=== PATIENT | female | born 1975 | race Caucasian/White ===

== ENCOUNTER → 2017-12-31 16:49 | Outpatient (CLI) | payer BC, SELFPAY | PROVIDERS: Visit Provider Obstetrics & Gynecology | DX: R30.0 Dysuria (principal); R39.15 Urgency of urination | CPT/HCPCS: 87077; 87086; 87088; 87186 ==

== ENCOUNTER 2018-02-20 15:04 | Inpatient (IN) | payer BC, SELFPAY ==
[2018-02-20] VITALS (14 sets, daily range): BP systolic 128–177; BP diastolic 75–132; PULSE 76–103; RESP 16–20; TEMP 36.8–37.2; O2SAT 95–100; BMI 29.7; BMI 29.9
--- NOTE | 2018-02-20 15:22 | EKG12_ITS ---
Test Reason : Blood Pressure : / mmHG Vent. Rate : 081 BPM Atrial Rate : 081 BPM P-R Int : 148 ms QRS Dur : 084 ms QT Int : 360 ms P-R-T Axes : 059 056 038 degrees QTc Int : 418 ms Normal sinus rhythm Normal ECG Confirmed by SANTI PENN ([id number]), offline editor DINO KOCH ([id number]) on 02/24/2018 1:39:25 PM Referred By: KEYLA Confirmed By:SANTI PENN
--- NOTE | 2018-02-20 15:22 | CT_ITS ---
STUDY: CT BRAIN WITHOUT CONTRAST REASON FOR EXAM: Female, 42 years old. Weakness, facial droop, left arm numbness RADIATION DOSAGE (If Supplied By Facility): CTDIvol = ( 44.99 ) mGy, DLP = ( 745.49 ) mGycm TECHNIQUE: Transaxial CT imaging of the brain was performed without administration of intravenous contrast material. Individualized dose optimization techniques were used for this CT. COMPARISON: None. FINDINGS: Normal soft tissue structures. Normal calvarium. Normal size ventricles and extra-axial spaces for the patient's age. Normal white matter tracts of the cerebral hemispheres. Normal basal ganglia and thalami. Normal brainstem. Normal cerebellum. There is no intracranial hemorrhage. There are no findings of an acute ischemic infarction. Normal visualized paranasal sinuses. CT/Brain/Head without Contrast IMPRESSION: Normal unenhanced CT scan of the brain. If acute CVA is clinically suspected, MRI may be helpful for further evaluation at this time. Electronically Signed: Ugo Kowalski MD at 16:17 EDT , Service support ,
--- NOTE | 2018-02-20 15:26 | ED.DCSUM_ITS ---
- ER Visit Summary Date of Service: 02/20/18 Chief Complaint: Left face and arm numbness History of Present Illness: The patient is a 42 F presenting with left-sided face and arm numbness. She also has left arm weakness. She was seen by her primary care physician today who also noted a facial droop. She states her symptoms started yesterday. They have been intermittent. She states yesterday the left arm numbness and weakness lasted approximately an hour. She has had intermittent episodes today. She also noted difficulty with her speech last night. She has no known medical problems. No other complaints. Physical Examination: Vitals are stable. Patient is afebrile. Alert no acute distress. HEENT exam is unremarkable. Neck is supple. Lungs are clear and equal bilaterally. Heart is regular rate and rhythm. Abdomen is soft nontender nondistended. Extremities are unremarkable. Skin is warm and dry. No focal neurologic deficit. NIH 0 Remainder of exam is unremarkable. Emergency Department Course and Treatment: EKG is sinus rate of 81 with no acute ischemic changes. Chest x-ray shows no acute process. CBC shows white count 12.3, chemistries show creatinine 1.04. INR is 1.0. Troponin is negative. CT head shows no acute process. Repeat NIH continues to be 0. Discussed with the hospitalist for admission. Disposition: Admission Impression: TIA This note was generated with [employer] dictation software. It may contain incorrect words, spelling, and punctuation that were not noted in review of the chart prior to signing ED Disposition - Plan for ED Patient: Chief Complaint: Neuro S/Sx Referrals: Rachel Jacinto MD [Primary Care Provider] -
--- NOTE | 2018-02-20 15:50 | RAD_ITS ---
STUDY: X-RAY CHEST REASON FOR EXAM: Female, 42 years old. Numbness, decreased sensation in left arm, facial drooping. TECHNIQUE: Single PA view of the chest. COMPARISON: None. FINDINGS: shirt folder leads are present. The lungs are clear and expanded. There is no demonstrated pleural abnormality. Normal size heart. Normal mediastinum and margarita. Normal visualized pulmonary arteries. Normal visualized aortic arch and descending thoracic aorta. Normal visualized thoracic spine. Normal visualized ribs, clavicles, and shoulders. There is no demonstrated abnormality of the visualized soft tissue structures of the upper abdomen. RAD/Chest 1 View IMPRESSION: Normal x-ray examination of the chest. Electronically Signed: Ugo Kowalski MD at 16:18 EDT , Service support ,
[2018-02-20 15:52] LABS: Absolute Neutrophil Count 8.6 X10^3/uL (2.0-7.7); Basophil# 0.02 X10^3/uL; Basophil% 0.2 % (0-1); Eosinophil# 0.15 X10^3/uL; Eosinophils% 1.2 % (0-5); Hematocrit 42.1 % (37-47); Lymphocyte % 23.6 % (19-41); Mean Corp Hgb Conc 33.3 g/gl (32-36); Mean Corpuscular Hgb 28.7 pg (27.0-32.0); Mean Corpuscular Volume 86.4 fL (81-99); Mean Platelet Vol. 10.3 fl (6.2-12.0); Monocyte# 0.61 X10^3/uL; Neutrophil # 8.61 X10^3/uL (2.7-7.7); Neutrophil % 69.8 % (47-70); Platelet Count 283 K/mm3 (150-450); RBC Distribution Width CV 13.3 % (11.6-14.6); RBC Distribution Width SD 41.4 fl (35.1-43.9); Red Blood Count 4.87 M/mm3 (4.2-5.4); White Blood Count 12.3 K/mm3 (4.4-11.0)
[2018-02-20 15:55] LABS: POSITIVE COUNT NO; POSITIVE DIFFERENTIAL NO; POSITIVE MORPHOLOGY NO
[2018-02-20 16:06] LABS: Prothrombin Time (Protime)PT. 12.7 SECONDS (11.7-14.9)
[2018-02-20 16:07] LABS: Anion Gap 6 (5-15); BUN 13 mg/dL (7-18); BUN/Creat Ratio 12.5 RATIO (10-20); Chloride 106 mmol/L (98-107); Creatinine, Serum 1.04 mg/dL (0.55-1.02); EST Glomerular Filtration Rate 61 mL/min (>60); Est Glom Filt Rate - Afr Amer 74 mL/min (>60); Estimated Creatinine Clearance 59.61 ml/min; Glucose 90 mg/dL (74-106); Partial Thromboplast Time 25.9 Seconds (24.1-36.2); Potassium 3.8 mmol/L (3.5-5.1); Sodium Level 142 mmol/L (136-145)
--- NOTE | 2018-02-20 18:40 | NURSING ---
CALLED ER CHARGE @ 1840 TO SAY OKAY FOR PT TO COME UP.
--- NOTE | 2018-02-20 18:55 | MRI_ITS ---
STUDY: MRI CERVICAL SPINE WITHOUT CONTRAST REASON FOR EXAM: Female, 42 years old. Left arm numbness and tingling. TECHNIQUE: Standardized fat and water weighted pulse sequences were obtained in the sagittal and axial planes. COMPARISON: None FINDINGS: Normal foramen magnum and brainstem-cervical cord junction. Normal craniovertebral junction. Normal anterior atlantoaxial articulation. Normal odontoid process. Normal cervical lordosis. Normal vertebral bodies and posterior osseous elements. C2-3: Normal endplates. Normal disc height, signal and morphology. Normal central canal and intervertebral neural foramina. C3-4: Normal endplates. Normal disc height, signal and morphology. Normal central canal and intervertebral neural foramina. C4-5: Normal endplates. Normal disc height, signal and morphology. Normal central canal and intervertebral neural foramina. C5-6: There is demonstrated right paracentral and foraminal disc bulge resulting in severe right foraminal narrowing. C6-7: Normal endplates. Normal disc height, signal and morphology. Normal central canal and intervertebral neural foramina. C7-T1: Normal endplates. Normal disc height, signal and morphology. Normal central canal and intervertebral neural foramina. Normal cervical cord. Normal visualized soft tissue structures. MRI/Spine Cervical (Routine) IMPRESSION: 1. Right C5-6 paracentral and foraminal disc bulge resulting in severe right foraminal narrowing, clinically correlate for right C5-6 radiculopathy. No evidence of cord signal abnormality. Electronically Signed: Rashaun Walter DO at 15:24 EDT , Service support ,
--- NOTE | 2018-02-20 18:55 | MRI_ITS ---
STUDY: MRA NECK WITH AND WITHOUT CONTRAST REASON FOR EXAM: Female, 42 years old. Left facial droop. TECHNIQUE: 3-D [id number] (TOF) imaging was performed in an 1.5 T MRI scanner. 7 ml of Gadavist was administered for the contrast enhanced images. COMPARISON: None. FINDINGS: RIGHT CAROTID ARTERIES: Normal right common carotid artery (CCA). Normal right common carotid bulb. Normal origin of the right internal carotid (ICA) artery without a hemodynamically significant stenosis. Normal visualized cervical portion of the right internal carotid artery. Normal origin of the right external carotid artery (ECA). LEFT CAROTID ARTERIES: Normal left common carotid artery (CCA). Normal left common carotid bulb. Normal origin of the left internal carotid (ICA) artery without a hemodynamically significant stenosis. Normal visualized cervical portion of the left internal carotid artery. Normal origin of the left external carotid artery (ECA). VERTEBRAL ARTERIES: Normal antegrade flow within the bilateral vertebral artery without a hemodynamically significant stenosis. MRI/MRA Neck WITH and W/O Contrast IMPRESSION: No evidence of significant steno-occlusive disease or aneurysm. Electronically Signed: Rashaun Walter DO at 15:35 EDT , Service support ,
--- NOTE | 2018-02-20 18:55 | MRI_ITS ---
STUDY: MRI BRAIN WITHOUT CONTRAST REASON FOR EXAM: Female, 42 years old. Left facial droop. TECHNIQUE: Standardized multiplanar fat and water weighted pulse sequences were obtained. COMPARISON: None. FINDINGS: Normal size of the ventricles and extra-axial spaces for the patient's age. Normal white matter tracts of the supratentorial brain. There is a focal infarct within the right subcortical white matter within the frontal parietal region/centrum semiovale measuring 1 cm in diameter. Normal bilateral basal ganglia. Normal thalami. There is no extra-axial fluid accumulation. Normal flow voids within the major intracranial circulation suggesting patency by spin echo criteria. Normal sella turcica, pituitary gland, infundibular stalk, optic chiasm and hypothalamus. Normal tectal plate and pineal gland. Normal midbrain, koko and medulla. Normal cerebellum. Normal basal cisterns. Normal bilateral temporal bones. Normal bilateral internal auditory canals. No demonstrated orbital abnormality, within the constraints of a routine brain study. Normal visualized paranasal sinuses. Normal calvarium and skull base. Normal visualized soft tissue structures. Normal visualized upper cervical spine. MRI/Brain without Contrast IMPRESSION: Right centrum semiovale/subcortical 1 cm focus of ischemia within the frontal parietal region without evidence of large territorial ischemia. No evidence of acute intracranial bleed. N.B. : The above information has been verbally conveyed by Rashaun Walter DO to Senia Griffith Charge Nurse, Other, on 02/21/2018 15:35:56 (ET). Electronically Signed: Rashaun Walter DO at 15:36 EDT , Service support ,
--- NOTE | 2018-02-20 18:55 | MRI_ITS ---
STUDY: MRA OF THE HEAD WITHOUT CONTRAST REASON FOR EXAM: Female, 42 years old. Left facial droop. TECHNIQUE: 3-D [id number] (TOF) imaging was performed with MIPs. The study was performed unenhanced. COMPARISON: None. FINDINGS: Normal bilateral petrous carotid arteries. Normal right cavernous carotid artery with a normal supraclinoid bifurcation. Normal left cavernous carotid artery with a normal supraclinoid bifurcation. Normal right A1 segments of the anterior cerebral artery. Normal left A1 segments of the anterior cerebral artery. Normal intact anterior communicating artery (ACOM). Normal bilateral A2 segments of the anterior cerebral arteries. Normal right M1 and M2 segments of the middle cerebral arteries, with a normal M1 bifurcation. Normal left M1 and M2 segments of the middle cerebral arteries, with a normal M1 bifurcation. Normal right posterior communicating artery (PCOM). Normal left posterior communicating artery (PCOM). Normal bilateral vertebral arteries. Normal basilar artery with a normal basilar bifurcation. The visualized bilateral superior cerebellar (SCA) arteries are normal. Normal bilateral P1, P2 and visualized P3 segments of the posterior cerebral arteries. There is no demonstrated aneurysm of the [place] of [place]. There is no major vessel occlusion or hemodynamically significant stenosis. There is no demonstrated abnormality of the visualized brain. MRI/MRA Head ONLY without Contrast IMPRESSION: No evidence of significant steno-occlusive disease or aneurysm. Electronically Signed: Rashaun Walter DO at 12:05 EDT , Service support ,
[2018-02-20] MEDS: Aspirin 81 MG TAB.CHEW PO (19:50)
--- NOTE | 2018-02-20 20:04 | PCM.HP.STD ---
Problem List (1) Intermittent left arm numbness/weakness Status: Acute History of Present Illness Date of Admission: 02/20/18 Chief Complaint: Intermittent left arm numbness and weakness The patient is a 42 year old F who was seen in the emergency room at [facility] after being sent in for evaluation by her PCP due to complaints of left arm weakness and numbness which has occurred twice since yesterday. These episodes lasted approximately an hour, patient states she was able to move her arm and grasp objects without dropping them but she felt weak in her left arm and hand and had a tingling sensation. Patient denied any visual disturbances, she denied any speech difficulties, she denied any other focal motor weakness. Patient states that her daughter told her that she felt she had drooping of the left side of her mouth as did her PCP today, on evaluation in the emergency room, there is no facial droop noted. Evaluation by the emergency room physician and noted a CT of the brain which was unremarkable, white blood cell count was slightly increased at 12.3, creatinine was 1.04, the remainder of her labs are unremarkable. Patient's NIH stroke score was 0. I discussed the case with neurology by phone this afternoon, neurology's recommended an MRI of the brain, MRI of the C-spine, and an MRA of the head and neck, they also recommended that the patient not take her control pills-I discussed this with the patient and she stated that she was not going to stop her control pills because she takes them in part for endometriosis. Neurology also recommended the patient take a baby aspirin a day and follow-up as an outpatient with them in 2-3 weeks. Neurology did not feel the patient needed to be seen in the hospital but recommended testing and would see the patient if any of the testing came back with a positive result. Patient will be placed in observation status on PCU, echocardiogram will be ordered, MRA of the head and neck was ordered, MRI of the brain was ordered, and patient will be monitored on telemetry. Patient was placed on a baby aspirin a day, I do not feel at this time the patient needs to be on a statin, lipid profile will be ordered for the a.m. Past Medical History Allergies No Known Allergies Allergy (Verified 02/20/18 15:06) Home Medications: Ambulatory Orders Medication Instructions Recorded Escitalopram Oxalate [Lexapro] 10 mg PO DAILY 08/21/16 cholecalciferol (vitamin D3) 1,000 1,000 unit PO QDAY 11/09/17 unit capsule Desog-E.estradiol/E.estradiol 1 tab PO DAILY 02/20/18 [Azurette 28 Day Tablet] Ketotifen Fumarate [Alaway] 1 drop EACH EYE BID 02/20/18 Surgical History: - - Laparoscopy Psychiatric History: Anxiety [employer] History: No pertinent [employer]ITCH[employer]ARD [employer] history Lives: Spouse/ Significant Other Smoking Status: Never smoker Tobacco Use: Non-smoker Alcohol: None Drugs: None - *Family History Maternal Family History: Family History (Last Updated 11/09/17 @ 10:08 by Lakeisha Hercules) Father Cancer History Items: Cancer - Thyroid cancer, Dementia Paternal Family History: Family History (Last Updated 11/09/17 @ 10:08 by Lakeisha Hercules) Father Cancer History Items: Cancer - Lymphoma Review of Systems Constitutional: Denies: Anorexia, Chills, Fever, Night Sweats, Malaise, Weight Change, Fatigue Eyes: Denies: Cataracts, Conjunctivae Inflammation, Double vision, Drainage, Pain, Redness, Vision Change HEENT: Denies: Difficulty Swallowing, Dysphasia, Ear Pain, Eye Pain, Hearing Changes, Nasal bleeding, Nasal Congestion, Post Nasal Drip Cardiovascular: Denies: Chest Pain, Claudication, Chest Pressure, Chest Tightness, Edema, Heaviness, Orthopnea, Palpitations, Paroxysmal Noc. Dyspnea, Syncope Respiratory: Denies: Cough, Hemoptysis, Pleuritic Pain, Shortness of Breath, Shortness of breath at rest, Shortness of breath upon exertion Gastrointestinal: Denies: Abdominal Pain, Constipation, Diarrhea, Hematemesis, Hematochezia, Nausea, Melena, Vomiting Genitourinary: Denies: Dysuria, Frequency, Hematuria, Hesitancy, Urgency Gynecological: Denies: Breast symptoms Musculoskeletal: Denies: Back Pain, Foot Pain, Hand Pain, Joint Pain, Joint stiffness, Joint swelling, Joint Tenderness, Leg Pain Skin: Denies: Dryness, Pruritis, Rash Neurological: Reports: Focal weakness - Focal weakness and left arm and hand yesterday and today lasting approximately an hour, Numbness - Tingling and numbness in her left arm as noted in chief complaint, Tingling. Denies: Balance problems, Blurred vision, Double vision, Slurred speech, Difficulty swallowing, Headaches Psychiatric: Reports: Anxiety. Denies: Depression, Homicidal Ideations, Suicidal Ideations Endocrine: Denies: Change in Body Habitus, Heat/ Cold Intolerance, Polydipsia, Polyuria Hematologic/ Lymphatic: Denies: Adenopathy, Anemia, Easy Bruising, Easy Bleeding, Petechiae, Purpura VTE Information - Inpt Only VTE Present on Admission: No VTE Mechan Device Prophylaxis: None VTE Pharm Prophylaxis ordered?: No Reason prophylaxis not ordered:: Treatment Not Indicated - low risk for VTE Patient Problems: Active and Suspected Problems (Last Reviewed 11/09/17 @ 10:09 by Lakeisha Hercules) Intermittent left arm numbness/weakness (Acute) - Physical Exam General: Alert, Oriented x3, Cooperative, No apparent distress, Well developed, Well nourished HEENT: Atraumatic, PERRLA, EOMI, Normocephalic Oral: Moist Mucosa Neck: Supple, No JVD, Negative Carotid Bruits, No Nuchal Rigidity, Trachea Midline, Thyroid Normal Size and Texture Lungs: Clear to auscultation, Normal air movement, No rhonchi, No wheeze Cardiovascular: Regular rate, Regular Rhythm, Normal S1, Normal S2, No murmurs, No Ectopic Activity, PMI Normal, No rub noted, No Gallop Abdomen: Bowel Sounds Present, Soft, Non Tender, Non-Distended, No hernias noted Extremities: No clubbing, No cyanosis, No edema, Capillary Refill Less than 3 Seconds Skin: No rashes, No breakdown Musculoskeletal: No Tenderness to Palpation of Joints or Extremities Neurological: Cranial nerves II-XII grossly intact, Neuro grossly intact, Motor Exam 5/5 strength throughout, Sensory exam intact to light touch and pain, Coordination normal Psych/Mental Status: Normal Affect, Appropriate, Alert and oriented to time, place, person, mood and affect Vital Signs Temp Pulse Resp BP Pulse Ox 98.8 F 95 18 167/110 H 96 02/20/18 18:58 02/20/18 19:27 02/20/18 18:58 02/20/18 18:58 02/20/18 18:58 Oxygen Delivery Method Room Air Weight: 79.152 kg Body Mass Index (BMI) 29.9 Assessment/Plan All Active Problems (Last Reviewed 11/09/17 @ 10:09 by Lakeisha Hercules) Intermittent left arm numbness/weakness (Acute) #1 left arm and hand paresthesias and paresis-etiology unclear at this point, patient will be placed in observation status on PCU, she will undergo additional diagnostic testing as outlined previously, she will be seen by PT and OT, she will have an echocardiogram performed. Patient will be placed on a baby aspirin a day #2 anxiety-patient will continue Lexapro #3 endometriosis-again I discussed stopping the patient's control pills with the patient, she prefers not to at this point Code Visit OBSV E&M: 43411 Initial observation care L3
[2018-02-20] MEDS: Acetaminophen 325 MG Tablet 650 MG PO (21:42)
[2018-02-21] VITALS (11 sets, daily range): BP systolic 133–186; BP diastolic 91–107; PULSE 80–112; RESP 16; TEMP 36.9–37.1; O2SAT 96–100; BMI 29.9
--- NOTE | 2018-02-21 05:55 | ECHOD_ITS ---
Reason For Study: TIA/CVA Procedure This was a 2D Doppler, Color Flow transthoracic echocardiogram. Exam performed portable in patient room. Left Ventricle Normal size and thickness. The estimated ejection fraction is 65 %. Stage 1 diastolic dysfunction. No regional wall motion abnormalities noted. Right Ventricle Normal size and thickness. Normal systolic function. Atria Normal left atrium. Normal right atrium. Normal atrial septum. Bubble contrast study negative for right to left interatrial shunt. Mitral Valve The mitral valve is structurally normal. No prolapse or stenosis seen. Trivial mitral valve insufficiency. Tricuspid Valve Normal tricuspid valve. Trivial tricuspid valve insufficiency. Unable to estimate RV systolic pressure/pulmonary artery pressure due to technically difficult study. Aortic Valve Normal aortic valve. Trisinus/trileaflet aortic valve. Pulmonic Valve Normal pulmonic valve. Great Vessels Normal aortic root. Normal arch. Normal inferior vena cava. Inferior vena cava collapse with sniff. Pericardium/Pleural No pericardial effusion. MMode/2D Measurements & Calculations LVIDd: 4.2 cm IVSd: 1.2 cm Ao root diam: 3.4 cm LVIDs: 2.8 cm LVPWd: 1.2 cm LA dimension: 3.7 cm RVDd: 3.2 cm FS: 32.9 % LAV(MOD-bp): 57.1 ml LVAd ap4: 26.6 cm2 SV(MOD-sp4): 45.1 ml LAV(MOD-bp) Indexed: 31.0 ml/m2 EDV(MOD-sp4): 84.1 ml LAV(MOD-sp2): 48.9 ml EDV(sp4-el): 90.2 ml LAV(MOD-sp4): 66.1 ml LVAs ap4: 16.8 cm2 ESV(MOD-sp4): 39.0 ml ESV(sp4-el): 40.0 ml EF(MOD-sp4): 53.7 % EF(sp4-el): 55.6 % SV(sp4-el): 50.2 ml LA A4 area: 20.1 cm2 RA A4 area: 14.5 cm2 Time Measurements MV dec time: 0.26 sec Doppler Measurements & Calculations MV E max dajuan: 63.1 cm/sec Lat Peak E' Dajuan: 11.4 cm/sec Med Peak E' Dajuan: 8.1 cm/sec MV A max dajuan: 76.0 cm/sec E/E' lat: 5.6 E/E' med: 7.8 MV E/A: 0.83 MV V2 max: 113.6 cm/sec MV P1/2t max dajuan: 108.8 cm/sec Ao V2 max: 136.8 cm/sec MV max P.2 mmHg MV P1/2t: 59.0 msec Ao max P.5 mmHg MV V2 mean: 66.5 cm/sec MV dec slope: 540.6 cm/sec2 Ao V2 mean: 86.4 cm/sec MV mean P.1 mmHg MVA(P1/2t): 3.7 cm2 Ao mean P.5 mmHg MV V2 VTI: 26.1 cm Ao V2 VTI: 24.9 cm LV V1 max: 120.5 cm/sec PA V2 max: 93.4 cm/sec LV V1 max P.8 mmHg LV V1 mean P.0 mmHg LV V1 mean: 81.8 cm/sec LV V1 VTI: 22.7 cm Interpretation Summary The estimated ejection fraction is 65 %. Stage 1 diastolic dysfunction. Bubble contrast study negative for right to left interatrial shunt. Trivial mitral valve insufficiency. Trivial tricuspid valve insufficiency. Unable to estimate RV systolic pressure/pulmonary artery pressure due to technically difficult study. There is no comparison study available. Ordering Physician: Vimal Bishop Performed By: Carl Corona RCS
[2018-02-21 07:17] LABS: Cholesterol 225 mg/dL (200); High Density Lipoprotein 39 mg/dL; Triglycerides 187 mg/dL; Very Low Density Lipoprotein 37 mg/dL (5-40)
[2018-02-21] MEDS: Escitalopram Oxalate 10 MG Tablet PO (08:06)
[2018-02-21] MEDS: Aspirin 81 MG TAB.CHEW PO (08:06)
[2018-02-21] MEDS: LORazepam 2 MG/ML Syringe 0.5 MG IV (10:40)
[2018-02-21] MEDS: 0.9% NaCl Peripheral Flush Adult/Peds IV (10:40)
--- NOTE | 2018-02-21 12:30 | NURSING ---
Vitals and NIH assessment due while patient was off floor for MRI. Completed as soon as patient returned to floor.
[2018-02-21] MEDS: Acetaminophen 325 MG Tablet 650 MG PO (15:43)
--- NOTE | 2018-02-21 15:54 | PN_ITS ---
<Jessica Siddiqui - Last Filed: 02/21/18 15:54> Patient Problems: Active and Suspected Problems (Last Reviewed 11/09/17 @ 10:09 by Lakeisha Hercules) Intermittent left arm numbness/weakness (Acute) Subjective: Patient seen and examined. Resting in bed in no acute distress. States left arm numbness and weakness is improved however continues to have left hand numbness and tingling. Denies changes in vision, headache, slurred speech. No other neurologic deficits. Patient has mild left facial weakness. No sensory deficits. - Physical Exam General: Alert, Oriented x3, Cooperative HEENT: Atraumatic, PERRLA, EOMI, Normocephalic Neck: Supple, No JVD, Negative Carotid Bruits Lungs: Clear to auscultation, Normal air movement Cardiovascular: Regular rate, Regular Rhythm, Normal S1, Normal S2, No murmurs Abdomen: Bowel Sounds Present, Soft, Non Tender, Non-Distended Extremities: No clubbing, No cyanosis, No edema, Capillary Refill Less than 3 Seconds Skin: No rashes, No breakdown Musculoskeletal: No Tenderness to Palpation of Joints or Extremities Neurological: Cranial nerves II-XII grossly intact, - - Minimal left sided facial weakness, left hand/arm numbness and tingling. Psych/Mental Status: Normal Affect, Appropriate Vital Signs Temp Pulse Resp BP Pulse Ox 98.6 F 96 16 151/98 H 96 02/21/18 12:30 02/21/18 12:30 02/21/18 12:30 02/21/18 12:30 02/21/18 12:30 Oxygen Delivery Method Room Air Weight: 174 lb 8 oz Body Mass Index (BMI) 29.9 Intake and Output for Last 24 Hours 02/19/18 02/20/18 02/21/18 23:59 23:59 23:59 Intake Total 720 / 720 Balance 720 / 720 Laboratory Tests Past 24 Hrs 02/21/18 06:20 Triglycerides 187 Cholesterol 225 H LDL Cholesterol 149 H VLDL Cholesterol 37 HDL Cholesterol 39 L Medical Necessity - Tobacco Use Smoking Status: Never smoker Tobacco Use: Non-smoker Assessment/Plan All Active Problems (Last Reviewed 11/09/17 @ 10:09 by Lakeisha Hercules) Intermittent left arm numbness/weakness (Acute) 1. Left arm numbness/weakness-rule out CVA. MRI of brain shows 1 cm focus of ischemia within the right frontal parietal region. No evidence of acute intracranial bleed. Cervical spine MRI with right C5-C6 foraminal disc bulge resulting in severe right foraminal narrowing. No evidence of cord signal abnormality. MRA of neck showed no evidence of significant stenosis. Echocardiogram demonstrated an EF of 65%, stage I diastolic dysfunction. Bubble contrast study negative for right to left intra-atrial shunt. Neurology consulted. Continue aspirin, statin. PT/OT/ST. 2. Hypertension-permissive secondary to #1. Recommend lisinopril 10 mg at discharge. 3. Anxiety-continue home Lexapro regimen. 4. Endometriosis-on combination estrogen and progesterone control. DVT prophylaxis-Lovenox sc This patient was seen by PATSY Aranda under the supervision of Dr. Sykes. <Delmar Sykes E - Last Filed: 02/21/18 16:21> - Physical Exam Vital Signs Temp Pulse Resp BP Pulse Ox 98.6 F 96 16 151/98 H 96 02/21/18 12:30 02/21/18 12:30 02/21/18 12:30 02/21/18 12:30 02/21/18 12:30 Oxygen Delivery Method Room Air Weight: 174 lb 8 oz Body Mass Index (BMI) 29.9 Intake and Output for Last 24 Hours 02/19/18 02/20/18 02/21/18 23:59 23:59 23:59 Intake Total 720 / 720 Balance 720 / 720 Laboratory Tests Past 24 Hrs 02/21/18 06:20 Triglycerides 187 Cholesterol 225 H LDL Cholesterol 149 H VLDL Cholesterol 37 HDL Cholesterol 39 L Assessment/Plan Hospitalist note: I am seeing this patient in conjunction with Jessica Siddiqui. I independently seen and examined the patient. Progress note above, laboratory data and imaging studies reviewed and I agree with above workup and treatment plan. Today, patient reported that numbness and tingling of her left upper extremity is improving but still there. She denied focal weakness. She complains of neck pain. Her physical examination is nonfocal. Her blood pressure has been elevated and she mentioned that her progress has been elevated over the last 6 months but never been on antihypertensive medications. Her other vital signs are stable. - Physical Exam General: Alert, Oriented x3, Cooperative, No apparent distress. HEENT: Atraumatic, PERRLA, EOMI. Neck: Supple, No JVD, Negative Carotid Bruits, Trachea Midline, Thyroid Normal. Lungs: Clear to auscultation, Normal air movement, No rhonchi, No wheeze, No rales. Cardiovascular: Regular rate, Regular Rhythm, Normal S1, Normal S2, PMI Normal. Abdomen: Bowel Sounds Present, Soft, Non Tender, Non-Distended, No Hepato- splenomegaly. Extremities: No clubbing, No cyanosis, No edema Skin: No rashes, No breakdown Neurological: Neuro grossly intact Assessment and plan: #1 left upper extremity numbness/tingling/minimal weakness: Symptoms improved. MRI brain is questionable for acute ischemia. Patient complains of neck pain and MRI cervical spine revealed a right C5-C6 foraminal disc bulging which is severe but it is not consistent with her symptoms as her symptoms is on the left side. MRA of the head and neck revealed no evidence of hemodynamically significant vascular disease or stenosis. 2D echocardiogram revealed ejection fraction 65%, possible contrast study negative for active shunt and stage I diastolic dysfunction. She is on aspirin. Plan to start him on statins, neurology consult. #2 newly diagnosed hypertension: Patient mentioned that her blood pressure has been elevated for last 6 months and was not started any antihypertensive medications. At this time, we will allow permissive hypertension because of possible stroke. Patient may need to start her on antihypertensive medications upon discharge. #3 other chronic medical problems: Stable, continue current medications as above. This note was generated with [employer] dictation software. It may contain incorrect words, spelling, and punctuation that were not noted in checking the note before signing. Code Visit OBSV E&M: 46949 Subsequent observation care L2
--- NOTE | 2018-02-21 17:00 | PCM.CONS.GEN ---
Problem List (1) Stroke Status: Acute Qualifiers: CVA mechanism: embolism Precerebral and cerebral artery: middle cerebral artery Laterality of affected vessel: right Qualified Code(s): I63.411 - Cerebral infarction due to embolism of right middle cerebral artery Reason for Consult Date of Consultation: 02/21/18 Reason for Consultation: stroke History of Present Illness: The patient is a 42 year old CF with PMH Anxiety, Endometriosis (on oral BC pills) admitted with left sided weakness and paresthesias. Per patient she had left arm numbness/weakness on (02/19/18) that lasted for about 1 hour, then had a repeat of the left arm numbness/weakness yesterday which occurred on and off per patient, and at present complaints of left arm tingling, also complaints of moderate headache but per patient it is similar to her previous [place], denies any photophobia, phonophobia, denies any symptoms in the legs, does complaint of neck pain but denies any radicular symptoms. Denies any smoking. 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[employer]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 history Lives: Spouse/ Significant Other Smoking Status: Never smoker Tobacco Use: Non-smoker Alcohol: None Drugs: None - *Family History Maternal Family History: Family History (Last Updated 11/09/17 @ 10:08 by Lakeisha Hercules) Father Cancer History Items: Cancer - Thyroid cancer, Dementia Paternal Family History: Family History (Last Updated 11/09/17 @ 10:08 by Lakeisha Hercules) Father Cancer History Items: Cancer - Lymphoma Review of Systems Constitutional: Reports: - - complete ROS negative except as documented in HPI Patient Problems: Active and Suspected Problems (Last Reviewed 11/09/17 @ 10:09 by Lakeisha Hercules) Intermittent left arm numbness/weakness (Acute) Stroke (Acute) - Physical Exam General: Alert HEENT: Atraumatic Neck: Supple Lungs: Clear to auscultation Cardiovascular: Normal S1, Normal S2 Abdomen: Bowel Sounds Present Extremities: No cyanosis Skin: No rashes Musculoskeletal: No Tenderness to Palpation of Joints or Extremities Neurological: - - consious, alert, AoAx3, CN 2-12 grossly intact, power 5/5 all 4 extremities, no sensory loss, no cerebellar signs, Reflexes + B/L B/S/T/K/A, gait deferred, NIHSS 0 at present. Vital Signs Temp Pulse Resp BP Pulse Ox 98.6 F 96 16 151/98 H 96 02/21/18 12:30 02/21/18 14:54 02/21/18 12:30 02/21/18 12:30 02/21/18 12:30 Oxygen Delivery Method Room Air Weight: 79.152 kg Body Mass Index (BMI) 29.9 Intake and Output for Last 24 Hours 02/19/18 02/20/18 02/21/18 23:59 23:59 23:59 Intake Total 720 / 720 Balance 720 / 720 Laboratory Tests Past 24 Hrs 02/21/18 06:20 Triglycerides 187 Cholesterol 225 H LDL Cholesterol 149 H VLDL Cholesterol 37 HDL Cholesterol 39 L Assessment/Plan All Active Problems (Last Reviewed 11/09/17 @ 10:09 by Lakeisha Hercules) Intermittent left arm numbness/weakness (Acute) Stroke (Acute) The patient is a 42 year old CF with PMH Anxiety, Endometriosis (on oral BC pills) admitted with left sided weakness and paresthesias. Per patient she had left arm numbness/weakness on (02/19/18) that lasted for about 1 hour, then had a repeat of the left arm numbness/weakness yesterday which occurred on and off per patient, and at present complaints of left arm tingling, also complaints of moderate headache but per patient it is similar to her previous [place], denies any photophobia, phonophobia, denies any symptoms in the legs, does complaint of neck pain but denies any radicular symptoms. Denies any smoking. MRI brain done on admission showed acute right MCA stroke, MRA head/neck reported normal Impression Acute Right MCA stroke-? embolic vs secondary to control pills Plan -MRI brain and MRA head/neck reviewed -Check MRV -ASA 81 mg PO Once daily and Plavix 75 mg PO once daily, dual AP for 3 weeks then switch to single AP. Bleeding risks discussed in detail -Lipitor 80 mg PO q hs -TTE-EF 65%, normal LA size, no PFO -LDL-149, check Hba1c, check UDS -Check hypercoagulable panel -Recommend CHAITANYA -Patient counseled to not take oral control pills -Recommend 30 day event recorder -PT/OT -GI/DVT prophylaxis -Fall precautions -Further medical management per primary team -Stroke risk factors discussed and stroke education provided -Follow up with Neurology in 2-3 weeks as outpatient -Please call with questions if any -Thank you for allowing us to participate in patient's care and management I spent 60 minutes taking history, doing physical examination, reviewing medical records, coordinating care and counseling the patient and her . Code Visit Inpatient E&M: 53236 Init Hosp L3
--- NOTE | 2018-02-21 17:04 | MRI_ITS ---
STUDY: EXAMINATION - MRV BRAIN WITHOUT CONTRAST REASON FOR EXAM: Female, 42 years old. CVA. TECHNIQUE: 3D [id number] (TOF) imaging was performed without IV contrast. COMPARISON: None. FINDINGS: Normal flow within the superior sagittal sinus. Normal flow within the superficial cortical veins. Normal flow within the paired internal cerebral veins, vein of Omer and straight sinus. Normal flow within the bilateral transverse and sigmoid sinuses. Normal flow within the bilateral jugular bulbs. MRI/MRV Head Without Contrast IMPRESSION: Normal unenhanced MRV of the brain. Electronically Signed: Adi Merchant MD at 11:04 EDT , Service support ,
--- NOTE | 2018-02-21 17:10 | CON.PCM_ITS ---
Problem List (1) Stroke Status: Acute Qualifiers: CVA mechanism: embolism Precerebral and cerebral artery: middle cerebral artery Laterality of affected vessel: right Qualified Code(s): I63.411 - Cerebral infarction due to embolism of right middle cerebral artery Reason for Consult Date of Consultation: 02/21/18 Reason for Consultation: stroke History of Present Illness: The patient is a 42 year old CF with PMH Anxiety, Endometriosis (on oral BC pills) admitted with left sided weakness and paresthesias. Per patient she had left arm numbness/weakness on (02/19/18) that lasted for about 1 hour, then had a repeat of the left arm numbness/weakness yesterday which occurred on and off per patient, and at present complaints of left arm tingling, also complaints of moderate headache but per patient it is similar to her previous [place] , denies any photophobia, phonophobia, denies any symptoms in the legs, does complaint of neck pain but denies any radicular symptoms. Denies any smoking. 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 Lives: Spouse/ Significant Other Smoking Status: Never smoker Tobacco Use: Non-smoker Alcohol: None Drugs: None - *Family History Maternal Family History: Family History (Last Updated 11/09/17 @ 10:08 by Lakeisha Hercules) Father Cancer History Items: Cancer - Thyroid cancer, Dementia Paternal Family History: Family History (Last Updated 11/09/17 @ 10:08 by Lakeisha Hercules) Father Cancer History Items: Cancer - Lymphoma Review of Systems Constitutional: Reports: - - complete ROS negative except as documented in HPI Patient Problems: Active and Suspected Problems (Last Reviewed 11/09/17 @ 10:09 by Lakeisha Hercules) Intermittent left arm numbness/weakness (Acute) Stroke (Acute) - Physical Exam General: Alert HEENT: Atraumatic Neck: Supple Lungs: Clear to auscultation Cardiovascular: Normal S1, Normal S2 Abdomen: Bowel Sounds Present Extremities: No cyanosis Skin: No rashes Musculoskeletal: No Tenderness to Palpation of Joints or Extremities Neurological: - - consious, alert, AoAx3, CN 2-12 grossly intact, power 5/5 all 4 extremities, no sensory loss, no cerebellar signs, Reflexes + B/L B/S/T/K/A, gait deferred, NIHSS 0 at present. Vital Signs Temp Pulse Resp BP Pulse Ox 98.6 F 96 16 151/98 H 96 02/21/18 12:30 02/21/18 14:54 02/21/18 12:30 02/21/18 12:30 02/21/18 12:30 Oxygen Delivery Method Room Air Weight: 79.152 kg Body Mass Index (BMI) 29.9 Intake and Output for Last 24 Hours 02/19/18 02/20/18 02/21/18 23:59 23:59 23:59 Intake Total 720 / 720 Balance 720 / 720 Laboratory Tests Past 24 Hrs 02/21/18 06:20 Triglycerides 187 Cholesterol 225 H LDL Cholesterol 149 H VLDL Cholesterol 37 HDL Cholesterol 39 L Assessment/Plan All Active Problems (Last Reviewed 11/09/17 @ 10:09 by Lakeisha Hercules) Intermittent left arm numbness/weakness (Acute) Stroke (Acute) The patient is a 42 year old CF with PMH Anxiety, Endometriosis (on oral BC pills) admitted with left sided weakness and paresthesias. Per patient she had left arm numbness/weakness on (02/19/18) that lasted for about 1 hour, then had a repeat of the left arm numbness/weakness yesterday which occurred on and off per patient, and at present complaints of left arm tingling, also complaints of moderate headache but per patient it is similar to her previous [place] , denies any photophobia, phonophobia, denies any symptoms in the legs, does complaint of neck pain but denies any radicular symptoms. Denies any smoking. MRI brain done on admission showed acute right MCA stroke, MRA head/neck reported normal Impression Acute Right MCA stroke-? embolic vs secondary to control pills Plan -MRI brain and MRA head/neck reviewed -Check MRV -ASA 81 mg PO Once daily and Plavix 75 mg PO once daily, dual AP for 3 weeks then switch to single AP. Bleeding risks discussed in detail -Lipitor 80 mg PO q hs -TTE-EF 65%, normal LA size, no PFO -LDL-149, check Hba1c, check UDS -Check hypercoagulable panel -Recommend CHAITANYA -Patient counseled to not take oral control pills -Recommend 30 day event recorder -PT/OT -GI/DVT prophylaxis -Fall precautions -Further medical management per primary team -Stroke risk factors discussed and stroke education provided -Follow up with Neurology in 2-3 weeks as outpatient -Please call with questions if any -Thank you for allowing us to participate in patient's care and management I spent 60 minutes taking history, doing physical examination, reviewing medical records, coordinating care and counseling the patient and her . Code Visit Inpatient E&M: [id number] Init Hosp L3
[2018-02-21] MEDS: Clopidogrel Bisulfate 75 MG Tablet PO (17:20)
[2018-02-21] MEDS: Enoxaparin 40 MG/0.4 ML Syringe SC (17:20)
[2018-02-21 18:01] LABS: Hemoglobin A1c 5.5 % (4.2-6.3)
[2018-02-21] MEDS: Naproxen 250 MG Tablet 500 MG PO (20:16)
[2018-02-21] MEDS: Atorvastatin Calcium 80 MG Tablet PO (21:48)
[2018-02-21] MEDS: Zolpidem Tartrate 5 MG Tablet PO (21:49)
[2018-02-22] VITALS (14 sets, daily range): BP systolic 138–183; BP diastolic 86–107; PULSE 84–111; RESP 16; TEMP 36.9–37.1; O2SAT 96–98; BMI 29.9
[2018-02-22] MEDS: Acetaminophen 325 MG Tablet 650 MG PO ×2 (05:52→15:39)
[2018-02-22] MEDS: Enoxaparin 40 MG/0.4 ML Syringe SC (05:52)
[2018-02-22] MEDS: Escitalopram Oxalate 10 MG Tablet PO (08:43)
[2018-02-22] MEDS: Naproxen 250 MG Tablet 500 MG PO (08:43)
[2018-02-22] MEDS: Clopidogrel Bisulfate 75 MG Tablet PO (08:43)
[2018-02-22] MEDS: Aspirin 81 MG TAB.CHEW PO (08:43)
[2018-02-22] MEDS: 0.9% NaCl Peripheral Flush Adult/Peds IV (09:23)
[2018-02-22] MEDS: LORazepam 2 MG/ML Syringe 0.5 MG IV (09:23)
--- NOTE | 2018-02-22 12:13 | PN_ITS ---
<Jessica Siddiqui - Last Filed: 02/22/18 12:13> Patient Problems: Active and Suspected Problems (Last Reviewed 11/09/17 @ 10:09 by Lakeisha Hercules) Intermittent left arm numbness/weakness (Acute) Stroke (Acute) Subjective: Patient seen and examined. States left arm numbness, tingling, weakness has resolved. Planes of intermittent headache. Denies other new neurologic complaints. - Physical Exam General: Alert, Oriented x3, Cooperative, No apparent distress HEENT: Atraumatic, PERRLA, EOMI, Normocephalic Neck: Supple, No JVD, Negative Carotid Bruits Lungs: Clear to auscultation, Normal air movement Cardiovascular: Regular rate, Regular Rhythm, Normal S1, Normal S2, No murmurs Abdomen: Bowel Sounds Present, Soft, Non Tender, Non-Distended Extremities: No clubbing, No cyanosis, No edema, Capillary Refill Less than 3 Seconds Skin: No rashes, No breakdown Musculoskeletal: No Tenderness to Palpation of Joints or Extremities Neurological: Cranial nerves II-XII grossly intact, Neuro grossly intact Psych/Mental Status: Normal Affect, Appropriate Vital Signs Temp Pulse Resp BP Pulse Ox 98.8 F 88 16 183/103 H 96 02/22/18 09:34 02/22/18 11:00 02/22/18 09:34 02/22/18 11:38 02/22/18 09:34 Oxygen Delivery Method Room Air Weight: 174 lb 8 oz Body Mass Index (BMI) 29.9 Intake and Output for Last 24 Hours 02/20/18 02/21/18 02/22/18 23:59 23:59 23:59 Intake Total 1720 / 1720 Balance 1720 / 1720 Laboratory Tests Past 24 Hrs 02/21/18 02/21/18 02/21/18 16:15 16:15 16:15 Dil Sergey Viper Venom Protein C Antigen Pending Functional Protein C Pending Prot C Funct Activity Pending Antithrombin III Ag Pending Func Antithrombin III Pending Pending Factor V Leiden Mutat Pending Hemoglobin A1c 5.5 Beta-2-GPI IgG Ab Pending Beta-2-GPI IgA Ab Pending Beta-2-GPI IgM Ab Pending Anti-Cardiolipin IgG Ab Pending Anti-Cardiolipin IgM Ab Pending Factor II DNA Analysis Pending 02/21/18 16:15 Dil Sergey Viper Venom Pending Protein C Antigen Functional Protein C Prot C Funct Activity Antithrombin III Ag Func Antithrombin III Factor V Leiden Mutat Hemoglobin A1c Beta-2-GPI IgG Ab Beta-2-GPI IgA Ab Beta-2-GPI IgM Ab Anti-Cardiolipin IgG Ab Anti-Cardiolipin IgM Ab Factor II DNA Analysis Medical Necessity - Tobacco Use Smoking Status: Never smoker Tobacco Use: Non-smoker Assessment/Plan All Active Problems (Last Reviewed 11/09/17 @ 10:09 by Lakeisha Hercules) Intermittent left arm numbness/weakness (Acute) Stroke (Acute) 1. Acute right MCA embolic stroke- MRI of brain shows 1 cm focus of ischemia within the right frontal parietal region. No evidence of acute intracranial bleed. Cervical spine MRI with right C5-C6 foraminal disc bulge resulting in severe right foraminal narrowing. No evidence of cord signal abnormality. MRA of neck showed no evidence of significant stenosis. Echocardiogram demonstrated an EF of 65%, stage I diastolic dysfunction. Bubble contrast study negative for right to left intra-atrial shunt. Neurology consulted. Continue aspirin, statin, Plavix. PT/OT/ST. MRV of head pending. Neurology recommending CHAITANYA which will be completed tomorrow. Patient will be discharged on 30 day event recorder. Patient counseled to discontinue oral control regimen. Follow-up with neurology as outpatient in 2-3 weeks. Hypercoagulable panel pending. 2. Hypertension-permissive secondary to #1. Recommend lisinopril 10 mg at discharge. 3. Anxiety-continue home Lexapro regimen. 4. Endometriosis-on combination estrogen and progesterone control, patient counseled to discontinue. DVT prophylaxis-Lovenox sc This patient was seen by PATSY Aranda under the supervision of Dr. Sykes. <Delmar Sykes - Last Filed: 02/22/18 12:38> - Physical Exam Vital Signs Temp Pulse Resp BP Pulse Ox 98.8 F 88 16 183/103 H 96 02/22/18 09:34 02/22/18 11:00 02/22/18 09:34 02/22/18 11:38 02/22/18 09:34 Oxygen Delivery Method Room Air Weight: 174 lb 8 oz Body Mass Index (BMI) 29.9 Intake and Output for Last 24 Hours 02/20/18 02/21/18 02/22/18 23:59 23:59 23:59 Intake Total 1720 / 1720 Balance 1720 / 1720 Laboratory Tests Past 24 Hrs 02/21/18 02/21/18 02/21/18 16:15 16:15 16:15 Dil Sergey Viper Venom Protein C Antigen Pending Functional Protein C Pending Prot C Funct Activity Pending Antithrombin III Ag Pending Func Antithrombin III Pending Pending Factor V Leiden Mutat Pending Hemoglobin A1c 5.5 Beta-2-GPI IgG Ab Pending Beta-2-GPI IgA Ab Pending Beta-2-GPI IgM Ab Pending Anti-Cardiolipin IgG Ab Pending Anti-Cardiolipin IgM Ab Pending Factor II DNA Analysis Pending 02/21/18 16:15 Dil Sergey Viper Venom Pending Protein C Antigen Functional Protein C Prot C Funct Activity Antithrombin III Ag Func Antithrombin III Factor V Leiden Mutat Hemoglobin A1c Beta-2-GPI IgG Ab Beta-2-GPI IgA Ab Beta-2-GPI IgM Ab Anti-Cardiolipin IgG Ab Anti-Cardiolipin IgM Ab Factor II DNA Analysis Assessment/Plan Hospitalist note: I am seeing this patient in conjunction with Jessica Siddiqui. I independently seen and examined the patient. Progress note above and imaging studies reviewed and I agree with above workup and treatment plan. Today, she mentioned that she has no more numbness or tingling on her left upper extremity. Denied any other complaints. Her blood pressure still on the higher side, systolic has been around 150s and diastolic has been around 100s. Other vital signs are stable. - Physical Exam General: Alert, Oriented x3, Cooperative, No apparent distress. HEENT: Atraumatic, PERRLA, EOMI. Neck: Supple, No JVD, Negative Carotid Bruits, Trachea Midline, Thyroid Normal. Lungs: Clear to auscultation, Normal air movement, No rhonchi, No wheeze, No rales. Cardiovascular: Regular rate, Regular Rhythm, Normal S1, Normal S2, PMI Normal. Abdomen: Bowel Sounds Present, Soft, Non Tender, Non-Distended, No Hepato- splenomegaly. Extremities: No clubbing, No cyanosis, No edema Skin: No rashes, No breakdown Neurological: Neuro grossly intact Assessment and plan: #1 Acute right MCA stroke: Probably embolic. Could be due to use of oral contraceptive pills. Patient has no focal deficit. MRI brain reviewed. MRA of the head and neck revealed no evidence of hemodynamically significant vascular disease or stenosis. 2D echocardiogram revealed ejection fraction 65% , possible contrast study negative for [id number]-ez-yeip shunt and stage I diastolic dysfunction. She is on aspirin, Plavix and statins. Neurology consulted, recommended CHAITANYA. Hypercoagulable workup is pending. Plan to start him on statins, neurology consult. Plan for MRV brain today. #2 newly diagnosed hypertension: This has been going on for 6 months according the patient. At this time, blood pressure is in the 150s systolic which is expected after acute stroke. Plan to close monitor, no need for treatment at this time. Upon discharge, patient may need to be started on antihypertensive medications. #3 right C5-C6 paracentral and foraminal disc bulging with severe right foraminal narrowing/radiculopathy: This is an incidental finding on MRI cervical spine that was done for neck pain. This is not corresponded to patient 's symptoms which is left upper extremity numbness and tingling. Patient will probably need follow-up with neurosurgery as outpatient. #4 other chronic medical problems: Stable, continue current medications as above. This note was generated with [employer] dictation software. It may contain incorrect words, spelling, and punctuation that were not noted in checking the note before signing. Code Visit Inpatient E&M: 83207 Subs Hosp L3
[2018-02-22] MEDS: traMADol 50 MG Tablet PO (12:45)
[2018-02-22 20:22] LABS: Amphetamine Urine VISTA NEGATIVE (<1000 ng/mL); Barbiturate Urine VISTA NEGATIVE (< 200 ng/mL); Benzodiazepine Urine VISTA NEGATIVE (< 200 ng/mL); Cocaine Urine VISTA NEGATIVE (< 300 ng/mL); Ecstacy Urine VISTA NEGATIVE (< 500 ng/mL); Methadone Urine VISTA NEGATIVE (< 300 ng/mL); PCP Urine VISTA NEGATIVE (< 25 ng/mL); THC Urine VISTA NEGATIVE (< 50 ng/mL); Vista UDS pH Range 6
--- NOTE | 2018-02-22 23:30 | NURSING ---
SHE DOES NOT WANT TO WATCH THE CHAITANYA VIDEO ON THE IPAD. VERBAL TEACHING DONE.
[2018-02-22] MEDS: Atorvastatin Calcium 80 MG Tablet PO (23:45)
[2018-02-22] MEDS: Zolpidem Tartrate 5 MG Tablet PO (23:45)
[2018-02-23 01:17] VITALS: BMI 29.9
[2018-02-23 03:35] VITALS: BP 158/98; PULSE 89; RESP 16; TEMP 37; O2SAT 99
[2018-02-23 03:53] VITALS: PULSE 84
[2018-02-23 05:57] VITALS: BMI 29.9
[2018-02-23] MEDS: Enoxaparin 40 MG/0.4 ML Syringe SC (06:35)
[2018-02-23 06:39] VITALS: BP 146/94; PULSE 92; RESP 16; TEMP 37.1; O2SAT 97
--- NOTE | 2018-02-23 07:00 | ECHOTEE_ITS ---
Reason For Study: Embolic Stroke Medication Topex Topical [place] given X9 metered doses orally. Versed 2 mg given slow IVP. Fentanyl 100 mcg given slow IVP. Performed a rapid injection of agitated mix of 9 cc saline and 1cc air to assess for atrial septal defect. Left Ventricle Normal LV size. Left ventricular systolic function is normal. The estimated ejection fraction is 65 %. No regional wall motion abnormalities noted. Right Ventricle Normal RV size. The right ventricular wall motion is normal. Atria No doppler evidence for ASD. Bubble contrast study negative for right to left interatrial shunt. Normal left atrium. There is no sponatenous contrast in the left atrium. No thrombus is detected in the left atrial appendage. Normal right atrium. There is no sponatenous contrast in the right atrium. No RA/appendage thrombus identified. Mitral Valve There is no mitral annular calcification. Mild diffuse mitral valve thickening. 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 Mild (1+) mitral valve insufficiency. Tricuspid Valve Normal tricuspid valve. Trivial tricuspid valve insufficiency. Aortic Valve Normal aortic valve. Trisinus/trileaflet aortic valve. Pulmonic Valve The pulmonic valve is not well visualized. Vessels Normal appearing thoracic aorta. Pericardium No pericardial effusion. Interpretation Summary Left ventricular systolic function is normal. The estimated ejection fraction is 65 %. There is no sponatenous contrast in the left atrium. No thrombus is detected in the left atrial appendage. Mild diffuse mitral valve thickening. 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 Mild (1+) mitral valve insufficiency. Trivial tricuspid valve insufficiency. Bubble contrast study negative for right to left interatrial shunt. Normal appearing thoracic aorta. Ordering Physician: Rajesh Pineda Referring Physician: Rachel Jacinto M.D. Performed By: Maryanne Forbes RDCS, RVT ??? Reason For Study: Embolic Stroke Interpretation Summary Left ventricular systolic function is normal. The estimated ejection fraction is 65 %. There is no sponatenous contrast in the left atrium. No thrombus is detected in the left atrial appendage. Mild diffuse mitral valve thickening. 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 Mild (1+) mitral valve insufficiency. Trivial tricuspid valve insufficiency. Bubble contrast study negative for right to left interatrial shunt. Normal appearing thoracic aorta. Ordering Physician: Rajesh Pineda Referring Physician: Rachel Jacinto M.D. Performed By: Maryanne Forbes RDCS, RVT
[2018-02-23 07:10] VITALS: PULSE 90
--- NOTE | 2018-02-23 10:25 | PCM.PN.NEU ---
Patient Problems: Active and Suspected Problems (Last Reviewed 11/09/17 @ 10:09 by Lakeisha Hercules) Intermittent left arm numbness/weakness (Acute) Stroke (Acute) Subjective: no complaints now. reports had a perimenstrual headache yesterday and a history of sinus headaches. minimal stress, no history of snoring, no insomnia. - Physical Exam General: Alert, Oriented x3, Cooperative HEENT: Atraumatic, PERRLA, EOMI, Normocephalic Neck: Supple, No JVD, Negative Carotid Bruits Lungs: Clear to auscultation, Normal air movement Cardiovascular: Regular rate, No murmurs Abdomen: Bowel Sounds Present, Soft, Non Tender Extremities: No edema, Capillary Refill Less than 3 Seconds Skin: No rashes, No breakdown Musculoskeletal: No Tenderness to Palpation of Joints or Extremities Neurological: Cranial nerves II-XII grossly intact Psych/Mental Status: Normal Affect, Appropriate Vital Signs Temp Pulse Resp BP Pulse Ox 37.1 C 90 16 146/94 H 97 02/23/18 06:39 02/23/18 07:10 02/23/18 06:39 02/23/18 06:39 02/23/18 06:39 Oxygen Delivery Method Room Air Weight: 79.152 kg Body Mass Index (BMI) 29.9 Intake and Output for Last 24 Hours 02/21/18 02/22/18 02/23/18 23:59 23:59 23:59 Intake Total 1280 / 1280 1600 / 1600 Balance 1280 / 1280 1600 / 1600 Laboratory Tests Past 24 Hrs 02/22/18 19:45 Urine Opiates Screen NEGATIVE Urine Methadone Screen NEGATIVE Ur Barbiturates Screen NEGATIVE Ur Phencyclidine Scrn NEGATIVE Ur Amphetamines Screen NEGATIVE U Methamphetamin-MDMA NEGATIVE U Benzodiazepines Scrn NEGATIVE Urine Cocaine Screen NEGATIVE U Cannabinoids Screen NEGATIVE Ur Drug Screen Comment surface echo normal shiv pending mrv normal mri 02/21 showed acute small right subcortical infarct Medical Necessity - Tobacco Use Smoking Status: Never smoker Tobacco Use: Non-smoker Assessment/Plan All Active Problems (Last Reviewed 11/09/17 @ 10:09 by Lakeisha Hercules) Intermittent left arm numbness/weakness (Acute) Stroke (Acute) right mca infarct dc ocps and all hormone therapies asa and plavix bp control ok to dc if shiv normal outpatient fu hypercoag labs pending
[2018-02-23 10:34] VITALS: BP 166/103; PULSE 91; RESP 16; TEMP 37.1; O2SAT 97
[2018-02-23] MEDS: Clopidogrel Bisulfate 75 MG Tablet PO (10:34)
[2018-02-23] MEDS: Aspirin 81 MG TAB.CHEW PO (10:34)
[2018-02-23] MEDS: Escitalopram Oxalate 10 MG Tablet PO (10:34)
--- NOTE | 2018-02-23 11:14 | DCINST_ITS ---
- Discharge Diagnoses Current Active Problems: Current Active and Chronic Problems (Last Reviewed 11/09/17 @ 10:09 by Lakeisha Hercules) Intermittent left arm numbness/weakness (Acute) Stroke (Acute) You will use the following diet at home:: Cardiac Discharge Activity: Return to Normal Activity Call your doctor if you observe: Numbness or Tingling, Shortness of breath, Dizziness, Fainting spells, Chest pain Allergies/Adverse Reactions: Allergies No Known Allergies Allergy (Verified 02/20/18 15:06) Medications to take at Discharge Escitalopram Oxalate [Lexapro] 10 mg PO DAILY 08/21/16 cholecalciferol (vitamin D3) 1,000 unit capsule 1,000 unit PO QDAY 11/09/17 Ketotifen Fumarate [Alaway] 1 drop EACH EYE BID 02/20/18 Aspirin [Aspirin, Baby] 81 mg PO DAILY@0800 #30 tab.chew 02/23/18 Atorvastatin Calcium 40 mg PO DAILY #30 tab 02/23/18 Clopidogrel Bisulfate [Plavix] 75 mg PO DAILY #30 tab 02/23/18 Lisinopril [Zestril] 20 mg PO DAILY #30 tab 02/23/18 The following prescriptions were given: Aspirin [Aspirin, Baby] 81 mg PO DAILY@0800 #30 tab.chew Atorvastatin Calcium 40 mg PO DAILY #30 tab Clopidogrel Bisulfate [Plavix] 75 mg PO DAILY #30 tab Lisinopril [Zestril] 20 mg PO DAILY #30 tab Orders to be completed after discharge: 30-Day Event Recorder [[facility]] Location: None Selected Primary Care Physician: Rachel Jacinto MD [Primary Care Provider] - Please follow up with your Primary Care Physician in: 1 Week Test Results: Test results from this visit will be discussed in further detail at your follow- up appointment, if applicable. Please Follow Up With: Farnaz Pineda MD When: 2-3 Weeks Proposed Discharge Date: 02/23/18
--- NOTE | 2018-02-23 11:14 | PCM.DC.SUM ---
<Jessica Siddiqui - Last Filed: 02/23/18 11:36> Discharge Date and Diagnosis Date of Admission: 02/20/18 Date of Discharge: 02/23/18 - Primary Discharge Diagnosis Active and Suspected Problems (Last Reviewed 11/09/17 @ 10:09 by Lakeisha Hercules) 1. Acute right MCA stroke, suspected embolic 2. Hypertension 3. Hyperlipidemia - Secondary Discharge Diagnosis Anxiety Endometriosis Hospital Course and Treatment Imaging Results: Diagnostic Data Brain CT 02/20/18 15:22 IMPRESSION: Normal unenhanced CT scan of the brain. If acute CVA is clinically suspected, MRI may be helpful for further evaluation at this time. Electronically Signed: Ugo Kowalski MD at 16:17 EDT , Service support , Chest X-Ray 02/20/18 15:50 IMPRESSION: Normal x-ray examination of the chest. Electronically Signed: Ugo Kowalski MD at 16:18 EDT , Service support , Cervical Spine MRI 02/20/18 18:55 IMPRESSION: 1. Right C5-6 paracentral and foraminal disc bulge resulting in severe right foraminal narrowing, clinically correlate for right C5-6 radiculopathy. No evidence of cord signal abnormality. Electronically Signed: Rashaun Walter DO at 15:24 EDT , Service support , Head MRA 02/20/18 18:55 IMPRESSION: No evidence of significant steno-occlusive disease or aneurysm. Electronically Signed: Rashaun Walter DO at 12:05 EDT , Service support , Neck MRA 02/20/18 18:55 IMPRESSION: No evidence of significant steno-occlusive disease or aneurysm. Electronically Signed: Rashaun Walter DO at 15:35 EDT , Service support , Brain MRI 02/21/18 17:04 IMPRESSION: Normal unenhanced MRV of the brain. Electronically Signed: Adi Merchant MD at 11:04 EDT , Service support , Dr. Pineda- Neurology Operations: None Procedures: 2-D Echocardiogram, Transesophageal Echo Summary of Care Provided: 1. Acute right MCA stroke, probable embolic-possibly secondary to long-term use of oral contraceptives. MRI of brain shows 1 cm focus of ischemia within the right frontal parietal region. No evidence of acute intracranial bleed. Cervical spine MRI with right C5-C6 foraminal disc bulge resulting in severe right foraminal narrowing. No evidence of cord signal abnormality. MRA of neck showed no evidence of significant stenosis. Echocardiogram demonstrated an EF of 65%, stage I diastolic dysfunction. Bubble contrast study negative for right to left intra-atrial shunt. MRV of head normal. Neurology consulted. Continue aspirin, statin, Plavix. Patient will continue dual antiplatelet therapy for 3 weeks. Follow-up with neurology in 2-3 weeks. CHAITANYA completed which was reported to be normal. Patient advised to discontinue oral control regimen. She will be discharged on 30 day event monitor. Hypercoagulable panel pending. 2. Hypertension-patient discharged on lisinopril 20 mg daily. Instructed to monitor her blood pressure twice daily at home. Patient is agreeable. Follow-up with primary care physician in 1 week. 3. Anxiety-continue home Lexapro regimen. 4. Endometriosis-on combination estrogen and progesterone control, patient counseled to discontinue. 5. Hyperlipidemia-discharged on atorvastatin 40 mg nightly. Recommend repeat lipid panel by primary care physician. General: Alert, Oriented x3, Cooperative, No apparent distress HEENT: Atraumatic, PERRLA, EOMI, Normocephalic Neck: Supple, No JVD, Negative Carotid Bruits Lungs: Clear to auscultation, Normal air movement Cardiovascular: Regular rate, Regular Rhythm, Normal S1, Normal S2, No murmurs Abdomen: Bowel Sounds Present, Soft, Non Tender, Non-Distended Extremities: No clubbing, No cyanosis, No edema, Capillary Refill Less than 3 Seconds Skin: No rashes, No breakdown Musculoskeletal: No Tenderness to Palpation of Joints or Extremities Neurological: Cranial nerves II-XII grossly intact, Neuro grossly intact Psych/Mental Status: Normal Affect, Appropriate Patient seen exam prior to discharge. Physical assessment as noted above. Patient stable for discharge home with follow-up recommendations as noted above. This patient was seen by PATSY Aranda under the supervision of Dr. Sykes. Discharge Diet: Low fat/ Low Cholesterol Discharge Activity: Return to Normal Activity Call your doctor if you observe: Numbness or Tingling, Shortness of breath, Dizziness, Fainting spells, Chest pain Home Medications: Medications to take at Discharge Escitalopram Oxalate [Lexapro] 10 mg PO DAILY 08/21/16 cholecalciferol (vitamin D3) 1,000 unit capsule 1,000 unit PO QDAY 11/09/17 Ketotifen Fumarate [Alaway] 1 drop EACH EYE BID 02/20/18 Aspirin [Aspirin, Baby] 81 mg PO DAILY@0800 #30 tab.chew 02/23/18 Atorvastatin Calcium 40 mg PO DAILY #30 tab 02/23/18 Clopidogrel Bisulfate [Plavix] 75 mg PO DAILY #30 tab 02/23/18 Lisinopril [Zestril] 20 mg PO DAILY #30 tab 02/23/18 Following Prescrptions Were Given to Patient: Aspirin [Aspirin, Baby] 81 mg PO DAILY@0800 #30 tab.chew Atorvastatin Calcium 40 mg PO DAILY #30 tab Clopidogrel Bisulfate [Plavix] 75 mg PO DAILY #30 tab Lisinopril [Zestril] 20 mg PO DAILY #30 tab Other Amb Orders: 30-Day Event Recorder [[facility]] Location: None Selected Primary Care Physician: Rachel Jacinto MD [Primary Care Provider] - Please follow up with your Primary Care Physician in: 1 Week Please Follow Up With: Farnaz Pineda MD When: 2-3 Weeks Disposition: Home Minutes spent on discharge:: 35 Patient Condition:: Stable Medical Necessity - Tobacco Use Smoking Status: Never smoker Tobacco Use: Non-smoker Meaningful Use Info Meaningful Use Diagnoses (Choose all that apply): Ischemic CVA - CVA Therapy Assessed for PT,OT and/or ST?: Yes - Ischemic Stroke Antithrombotic order at d/c?: Yes Dx of Atrial fib/flutter?: No Statins at discharge?: Yes Primary Dx Acute Ischemic CVA?: Yes IV tPA ordered during stay?: No Reason IV t-PA not ordered: Medical Contraindication <Delmar Sykes - Last Filed: 02/23/18 13:10> Hospital Course and Treatment Summary of Care Provided: Hospitalist note: Discharge summary above reviewed as well as physical examination and I agree with above treatment plan. Patient seen and examined on the day of discharge and appeared to be stable to be discharged home. She was admitted for symptoms of numbness and tingling of her left upper extremity as well as neck pain. Initial CT scan brain showed no acute findings. MRI brain revealed right centrum semiovale/subcortical small focus of ischemia consistent with acute stroke which is likely embolic in etiology. MRA of the head and neck revealed no evidence of hemodynamically significant vascular disease or stenosis. 2D echocardiogram revealed ejection fraction of 65%, negative for [id number] shunt. Neurology consulted and recommended to do hypercoagulable workup which was sent and pending at the time of discharge. Also, recommended transesophageal echocardiogram which was done and reported as normal pending official report. Her EKG revealed normal sinus rhythm without evidence of acute ischemic changes or cardiac arrhythmias. During this hospital stay, her blood pressure has been on the higher side throughout the stay and patient mentioned that her blood pressure has been on the higher side for the last 6 months. She was found to have total cholesterol of 225 and LDL cholesterol of 149 and HDL cholesterol 39. Urine drug screen was negative. She was started on aspirin, statins and Plavix for acute stroke. She had no focal deficits on examination. Patient discharged home in a stable medical condition, discharged on aspirin, Plavix and statins, started on lisinopril for newly diagnosed hypertension, started on statins for hyperlipidemia, recommended follow-up with PCP in 1 week and follow-up with neurology in 2-3 weeks. - Physical Exam General: Alert, Oriented x3, Cooperative, No apparent distress. HEENT: Atraumatic, PERRLA, EOMI. Neck: Supple, No JVD, Negative Carotid Bruits, Trachea Midline, Thyroid Normal. Lungs: Clear to auscultation, Normal air movement, No rhonchi, No wheeze, No rales. Cardiovascular: Regular rate, Regular Rhythm, Normal S1, Normal S2, PMI Normal. Abdomen: Bowel Sounds Present, Soft, Non Tender, Non-Distended, No Hepato-splenomegaly. Extremities: No clubbing, No cyanosis, No edema Skin: No rashes, No breakdown Neurological: Neuro grossly intact Vital Signs are stable. This note was generated with [employer] dictation software. It may contain incorrect words, spelling, and punctuation that were not noted in checking the note before signing. Minutes spent on discharge:: 32 Meaningful Use Info Meaningful Use Diagnoses (Choose all that apply): Ischemic CVA - CVA Therapy Assessed for PT,OT and/or ST?: Yes - Ischemic Stroke Antithrombotic order at d/c?: Yes Dx of Atrial fib/flutter?: No Reason anticoagulant not ordered: Treatment not Indicated Statins at discharge?: Yes Primary Dx Acute Ischemic CVA?: Yes IV tPA ordered during stay?: No Reason IV t-PA not ordered: Treatment not Indicated Code Visit Inpatient E&M: 26083 Disch Hosp
--- NOTE | 2018-02-23 11:25 | DS.PCM_ITS ---
<Jessica Siddiqui - Last Filed: 02/23/18 11:36> Discharge Date and Diagnosis Date of Admission: 02/20/18 Date of Discharge: 02/23/18 - Primary Discharge Diagnosis Active and Suspected Problems (Last Reviewed 11/09/17 @ 10:09 by Lakeisha Hercules) 1. Acute right MCA stroke, suspected embolic 2. Hypertension 3. Hyperlipidemia - Secondary Discharge Diagnosis Anxiety Endometriosis Hospital Course and Treatment Imaging Results: Diagnostic Data Brain CT 02/20/18 15:22 IMPRESSION: Normal unenhanced CT scan of the brain. If acute CVA is clinically suspected, MRI may be helpful for further evaluation at this time. Electronically Signed: Ugo Kowalski MD at 16:17 EDT , Service support , Chest X-Ray 02/20/18 15:50 IMPRESSION: Normal x-ray examination of the chest. Electronically Signed: Ugo Kowalski MD at 16:18 EDT , Service support , Cervical Spine MRI 02/20/18 18:55 IMPRESSION: 1. Right C5-6 paracentral and foraminal disc bulge resulting in severe right foraminal narrowing, clinically correlate for right C5-6 radiculopathy. No evidence of cord signal abnormality. Electronically Signed: Rashaun Walter DO at 15:24 EDT , Service support , Head MRA 02/20/18 18:55 IMPRESSION: No evidence of significant steno-occlusive disease or aneurysm. Electronically Signed: Rashaun Walter DO at 12:05 EDT , Service support , Neck MRA 02/20/18 18:55 IMPRESSION: No evidence of significant steno-occlusive disease or aneurysm. Electronically Signed: Rashaun Walter DO at 15:35 EDT , Service support , Brain MRI 02/21/18 17:04 IMPRESSION: Normal unenhanced MRV of the brain. Electronically Signed: Adi Merchant MD at 11:04 EDT , Service support , Dr. Pineda- Neurology Operations: None Procedures: 2-D Echocardiogram, Transesophageal Echo Summary of Care Provided: 1. Acute right MCA stroke, probable embolic-possibly secondary to long-term use of oral contraceptives. MRI of brain shows 1 cm focus of ischemia within the right frontal parietal region. No evidence of acute intracranial bleed. Cervical spine MRI with right C5-C6 foraminal disc bulge resulting in severe right foraminal narrowing. No evidence of cord signal abnormality. MRA of neck showed no evidence of significant stenosis. Echocardiogram demonstrated an EF of 65%, stage I diastolic dysfunction. Bubble contrast study negative for right to left intra-atrial shunt. MRV of head normal. Neurology consulted. Continue aspirin, statin, Plavix. Patient will continue dual antiplatelet therapy for 3 weeks. Follow-up with neurology in 2-3 weeks. CHAITANYA completed which was reported to be normal. Patient advised to discontinue oral control regimen. She will be discharged on 30 day event monitor. Hypercoagulable panel pending. 2. Hypertension-patient discharged on lisinopril 20 mg daily. Instructed to monitor her blood pressure twice daily at home. Patient is agreeable. Follow- up with primary care physician in 1 week. 3. Anxiety-continue home Lexapro regimen. 4. Endometriosis-on combination estrogen and progesterone control, patient counseled to discontinue. 5. Hyperlipidemia-discharged on atorvastatin 40 mg nightly. Recommend repeat lipid panel by primary care physician. General: Alert, Oriented x3, Cooperative, No apparent distress HEENT: Atraumatic, PERRLA, EOMI, Normocephalic Neck: Supple, No JVD, Negative Carotid Bruits Lungs: Clear to auscultation, Normal air movement Cardiovascular: Regular rate, Regular Rhythm, Normal S1, Normal S2, No murmurs Abdomen: Bowel Sounds Present, Soft, Non Tender, Non-Distended Extremities: No clubbing, No cyanosis, No edema, Capillary Refill Less than 3 Seconds Skin: No rashes, No breakdown Musculoskeletal: No Tenderness to Palpation of Joints or Extremities Neurological: Cranial nerves II-XII grossly intact, Neuro grossly intact Psych/Mental Status: Normal Affect, Appropriate Patient seen exam prior to discharge. Physical assessment as noted above. Patient stable for discharge home with follow-up recommendations as noted above. This patient was seen by PATSY Aranda under the supervision of Dr. Sykes. Discharge Diet: Low fat/ Low Cholesterol Discharge Activity: Return to Normal Activity Call your doctor if you observe: Numbness or Tingling, Shortness of breath, Dizziness, Fainting spells, Chest pain Home Medications: Medications to take at Discharge Escitalopram Oxalate [Lexapro] 10 mg PO DAILY 08/21/16 cholecalciferol (vitamin D3) 1,000 unit capsule 1,000 unit PO QDAY 11/09/17 Ketotifen Fumarate [Alaway] 1 drop EACH EYE BID 02/20/18 Aspirin [Aspirin, Baby] 81 mg PO DAILY@0800 #30 tab.chew 02/23/18 Atorvastatin Calcium 40 mg PO DAILY #30 tab 02/23/18 Clopidogrel Bisulfate [Plavix] 75 mg PO DAILY #30 tab 02/23/18 Lisinopril [Zestril] 20 mg PO DAILY #30 tab 02/23/18 Following Prescrptions Were Given to Patient: Aspirin [Aspirin, Baby] 81 mg PO DAILY@0800 #30 tab.chew Atorvastatin Calcium 40 mg PO DAILY #30 tab Clopidogrel Bisulfate [Plavix] 75 mg PO DAILY #30 tab Lisinopril [Zestril] 20 mg PO DAILY #30 tab Other Amb Orders: 30-Day Event Recorder [[facility]] Location: None Selected Primary Care Physician: Rachel Jacinto MD [Primary Care Provider] - Please follow up with your Primary Care Physician in: 1 Week Please Follow Up With: Farnaz Pineda MD When: 2-3 Weeks Disposition: Home Minutes spent on discharge:: 35 Patient Condition:: Stable Medical Necessity - Tobacco Use Smoking Status: Never smoker Tobacco Use: Non-smoker Meaningful Use Info Meaningful Use Diagnoses (Choose all that apply): Ischemic CVA - CVA Therapy Assessed for PT,OT and/or ST?: Yes - Ischemic Stroke Antithrombotic order at d/c?: Yes Dx of Atrial fib/flutter?: No Statins at discharge?: Yes Primary Dx Acute Ischemic CVA?: Yes IV tPA ordered during stay?: No Reason IV t-PA not ordered: Medical Contraindication <Delmar Sykes - Last Filed: 02/23/18 13:10> Hospital Course and Treatment Summary of Care Provided: Hospitalist note: Discharge summary above reviewed as well as physical examination and I agree with above treatment plan. Patient seen and examined on the day of discharge and appeared to be stable to be discharged home. She was admitted for symptoms of numbness and tingling of her left upper extremity as well as neck pain. Initial CT scan brain showed no acute findings. MRI brain revealed right centrum semiovale/subcortical small focus of ischemia consistent with acute stroke which is likely embolic in etiology. MRA of the head and neck revealed no evidence of hemodynamically significant vascular disease or stenosis. 2D echocardiogram revealed ejection fraction of 65%, negative for [id number] shunt. Neurology consulted and recommended to do hypercoagulable workup which was sent and pending at the time of discharge. Also, recommended transesophageal echocardiogram which was done and reported as normal pending official report. Her EKG revealed normal sinus rhythm without evidence of acute ischemic changes or cardiac arrhythmias. During this hospital stay, her blood pressure has been on the higher side throughout the stay and patient mentioned that her blood pressure has been on the higher side for the last 6 months. She was found to have total cholesterol of 225 and LDL cholesterol of 149 and HDL cholesterol 39. Urine drug screen was negative. She was started on aspirin, statins and Plavix for acute stroke. She had no focal deficits on examination. Patient discharged home in a stable medical condition, discharged on aspirin, Plavix and statins, started on lisinopril for newly diagnosed hypertension, started on statins for hyperlipidemia, recommended follow-up with PCP in 1 week and follow-up with neurology in 2-3 weeks. - Physical Exam General: Alert, Oriented x3, Cooperative, No apparent distress. HEENT: Atraumatic, PERRLA, EOMI. Neck: Supple, No JVD, Negative Carotid Bruits, Trachea Midline, Thyroid Normal. Lungs: Clear to auscultation, Normal air movement, No rhonchi, No wheeze, No rales. Cardiovascular: Regular rate, Regular Rhythm, Normal S1, Normal S2, PMI Normal. Abdomen: Bowel Sounds Present, Soft, Non Tender, Non-Distended, No Hepato- splenomegaly. Extremities: No clubbing, No cyanosis, No edema Skin: No rashes, No breakdown Neurological: Neuro grossly intact Vital Signs are stable. This note was generated with Vitrina dictation software. It may contain incorrect words, spelling, and punctuation that were not noted in checking the note before signing. Minutes spent on discharge:: 32 Meaningful Use Info Meaningful Use Diagnoses (Choose all that apply): Ischemic CVA - CVA Therapy Assessed for PT,OT and/or ST?: Yes - Ischemic Stroke Antithrombotic order at d/c?: Yes Dx of Atrial fib/flutter?: No Reason anticoagulant not ordered: Treatment not Indicated Statins at discharge?: Yes Primary Dx Acute Ischemic CVA?: Yes IV tPA ordered during stay?: No Reason IV t-PA not ordered: Treatment not Indicated Code Visit Inpatient E&M: 69835 Disch Hosp
[2018-02-23] MEDS: Lisinopril 20 MG Tablet PO (11:30)
--- NOTE | 2018-02-23 11:31 | CASEMGMT ---
See RN CM Assessment Link. DC Plan: Home -Pt states No needs. Junito FRANCISCON RN ACM
[2018-02-25 03:08] LABS: Dilute Russell Viper Venom 35.6 sec (0.0-47.0)
[2018-03-02 12:07] LABS: Protein C Antigen 116 % (60-150); Protein C, Functional 141 % (73-180)
[2018-03-03 09:11] LABS: Anti-Cardiolipin Ab, IgG, Qn < 9 GPL U/mL (0-14); Anti-Cardiolipin Ab, IgM, Qn < 9 MPL U/mL (0-12); Anti-Thrombin 3 AG, Immunol 77 % (72-124); Antithrombin 3 Function 96 % (75-135); Beta-2-Glycoprotein I IgA <9 (0-25); Beta-2-Glycoprotein I IgG <9 (0-20); Beta-2-Glycoprotein I IgM <9 (0-32)
[2018-03-03 09:12] LABS: Antithrombin 3 Function 97 % (75-135)
== END 2018-02-23 13:11 | disposition home or self-care (01) | DRG 66 ==
LOC: ED 16:14 → PCU 18:40
PROVIDERS: Psychiatry & Neurology Neurology; Admitting Provider Internal Medicine; Emergency Provider Emergency Medicine; Family Provider Family Medicine; PCP Family Medicine; Visit Provider Hospitalist
DX: I63.411 Cerebral infarction due to embolism of right middle cerebral artery (principal); R29.810 Facial weakness; R20.2 Paresthesia of skin; N80.9 Endometriosis, unspecified; I10 Essential (primary) hypertension; E78.5 Hyperlipidemia, unspecified; M54.2 Cervicalgia; F32.9 Major depressive disorder, single episode, unspecified; F41.9 Anxiety disorder, unspecified; Z79.02 Long term (current) use of antithrombotics/antiplatelets; Z79.82 Long term (current) use of aspirin; Z79.899 Other long term (current) drug therapy
CPT/HCPCS: 36415; 70450; 70544; 70549; 70551; 71045; 72141; 80048; 80061; 80307; 81240; 81241; 83036; 84484; 85025; 85300; 85301; 85302; 85303; 85610; 85613; 85730; 86146; 86147; 93005; 93306; 93312; 93320; 93325; 99285; A9585; J7040; A4216; J2310

== ENCOUNTER → 2018-02-23 11:27 | Outpatient (REF) | payer BC, SELFPAY | LOC: CVS 11:27 | PROVIDERS: Family Provider Family Medicine; PCP Family Medicine; Visit Provider Nurse Practitioner Family | DX: R00.0 Tachycardia, unspecified (principal) | CPT/HCPCS: 93270 ==

== ENCOUNTER → 2018-03-02 10:39 | Outpatient (CLI) | payer BC, SELFPAY ==
[2018-03-02 13:01] LABS: AST(SGOT) 16 U/L (15-37); Alanine Aminotransfer ALT/SGPT 26 U/L (13-56); Albumin, Serum 3.4 g/dL (3.2-5.0); Alkaline Phosphatase 70 U/L (45-117); Anion Gap 6 (5-15); BUN 12 mg/dL (7-18); BUN/Creat Ratio 12.5 RATIO (10-20); Calcium,Total 8.7 mg/dL (8.5-10.1); Chloride 104 mmol/L (98-107); Creatinine, Serum 0.96 mg/dL (0.55-1.02); EST Glomerular Filtration Rate 67 mL/min (>60); Est Glom Filt Rate - Afr Amer 81 mL/min (>60); Globulin 3.3 g/dL (2.2-4.2); Glucose 90 mg/dL (74-106); Potassium 3.8 mmol/L (3.5-5.1); Protein, Total 6.7 g/dL (6.4-8.2); Sodium Level 142 mmol/L (136-145)
== END ==
PROVIDERS: Family Provider Family Medicine; PCP Family Medicine; Visit Provider Family Medicine
DX: I10 Essential (primary) hypertension (principal)
CPT/HCPCS: 36415; 80053

== ENCOUNTER → 2018-04-13 11:43 | Outpatient (CLI) | payer BC, SELFPAY ==
[2018-04-13 11:50] LABS: Mucous, Urine 0 SEEN /hpf (<or=2+)
[2018-04-13 14:11] LABS: Absolute Neutrophil Count 6.1 X10^3/uL (2.0-7.7); Basophil# 0.02 X10^3/uL; Basophil% 0.2 % (0-1); Eosinophil# 0.16 X10^3/uL; Eosinophils% 1.7 % (0-5); Hemoglobin 12.9 g/dl (12.0-15.0); Lymphocyte % 29.7 % (19-41); Mean Corp Hgb Conc 32.3 g/gl (32-36); Mean Corpuscular Hgb 28.3 pg (27.0-32.0); Mean Corpuscular Volume 87.7 fL (81-99); Mean Platelet Vol. 10.6 fl (6.2-12.0); Monocyte# 0.37 X10^3/uL; Monocyte% 3.9 % (0-10); Neutrophil # 6.07 X10^3/uL (2.7-7.7); Neutrophil % 64.3 % (47-70); Platelet Count 239 K/mm3 (150-450); RBC Distribution Width SD 41.3 fl (35.1-43.9); Red Blood Count 4.56 M/mm3 (4.2-5.4); White Blood Count 9.4 K/mm3 (4.4-11.0)
[2018-04-13 14:13] LABS: ALB/GLOB Ratio 1.1 RATIO (0.9-2.4); AST(SGOT) 19 U/L (15-37); Alanine Aminotransfer ALT/SGPT 39 U/L (13-56); Albumin, Serum 3.4 g/dL (3.2-5.0); Alkaline Phosphatase 88 U/L (45-117); Anion Gap 10 (5-15); BUN 9 mg/dL (7-18); BUN/Creat Ratio 10.2 RATIO (10-20); Calcium,Total 8.5 mg/dL (8.5-10.1); Chloride 105 mmol/L (98-107); Cholesterol 109 mg/dL (200); Creatinine, Serum 0.88 mg/dL (0.55-1.02); EST Glomerular Filtration Rate 74 mL/min (>60); Est Glom Filt Rate - Afr Amer 89 mL/min (>60); Globulin 3.2 g/dL (2.2-4.2); Glucose 88 mg/dL (74-106); High Density Lipoprotein 33 mg/dL; Protein, Total 6.6 g/dL (6.4-8.2); Sodium Level 142 mmol/L (136-145); Triglycerides 106 mg/dL; Very Low Density Lipoprotein 21 mg/dL (5-40)
[2018-04-13 14:16] LABS: Color, Urine Yellow (Yellow); Glucose, Dipstick Normal (Normal); Ketone-Dipstick Negative (Negative); Leukocyte Esterase-Dipstick 500 /ul (Negative); Nitrite-Dipstick Negative (Negative); Occult Blood-Urine 10 /ul (Negative); Protein-Dipstick Negative (Negative); Urine Bilirubin Dipstick Negative (Negative); Urine Clarity Sl. Cloudy (Clear); Urine Urobilinogen Normal (Normal)
[2018-04-13 14:33] LABS: POSITIVE COUNT NO; POSITIVE DIFFERENTIAL NO; POSITIVE MORPHOLOGY NO
[2018-04-13 14:44] LABS: Bacteria 4+ /hpf (None Seen); Red Blood Cells-Urine 0-5 SEEN /hpf (0-5); Squamous Epithelial Cells - UA 50-100 SEEN /hpf (5-10); Transitional Epithelial - Ur 0-5 SEEN /hpf (0-5); White Blood Cells 50-100 SEEN /hpf (0-5)
== END ==
PROVIDERS: Family Provider Family Medicine; PCP Family Medicine; Visit Provider Family Medicine
DX: I10 Essential (primary) hypertension (principal); E78.5 Hyperlipidemia, unspecified
CPT/HCPCS: 36415; 80053; 80061; 81001; 85025

== ENCOUNTER → 2018-04-22 16:55 | Outpatient (CLI) | payer BC, SELFPAY ==
[2018-04-22 18:26] LABS: ALB/GLOB Ratio 1.1 RATIO (0.9-2.4); AST(SGOT) 16 U/L (15-37); Alanine Aminotransfer ALT/SGPT 35 U/L (13-56); Albumin, Serum 3.8 g/dL (3.2-5.0); Alkaline Phosphatase 92 U/L (45-117); Anion Gap 9 (5-15); BUN 15 mg/dL (7-18); BUN/Creat Ratio 14.2 RATIO (10-20); CPK Total, Creatine Kinase 73 U/L (26-192); Calcium,Total 8.7 mg/dL (8.5-10.1); Chloride 105 mmol/L (98-107); Creatinine, Serum 1.06 mg/dL (0.55-1.02); EST Glomerular Filtration Rate 60 mL/min (>60); Est Glom Filt Rate - Afr Amer 72 mL/min (>60); Globulin 3.5 g/dL (2.2-4.2); Glucose 84 mg/dL (74-106); Magnesium 2.1 mg/dL (1.6-2.6); Potassium 4.2 mmol/L (3.5-5.1); Protein, Total 7.3 g/dL (6.4-8.2); Sodium Level 141 mmol/L (136-145)
== END ==
PROVIDERS: Family Medicine; Family Provider Family Medicine; PCP Family Medicine; Visit Provider Family Medicine
DX: R25.2 Cramp and spasm (principal)
CPT/HCPCS: 36415; 80053; 82550; 83735

== ENCOUNTER → 2018-05-04 11:15 | Outpatient (CLI) | payer BC, SELFPAY ==
[2018-05-07 13:20] LABS: HPV Reflexed? NOT INDICATED
== END ==
PROVIDERS: Visit Provider Obstetrics & Gynecology
DX: Z12.4 Encounter for screening for malignant neoplasm of cervix (principal)
CPT/HCPCS: 88175; G0145

== ENCOUNTER → 2018-06-02 11:48 | Outpatient (CLI) | payer BC, SELFPAY ==
--- NOTE | 2018-06-02 11:51 | BI_ITS ---
MAMMOGRAPHY - BILATERAL SCREENING REASON FOR EXAM: Female, 42 years old. Routine annual screening examination. PERTINENT HISTORY: Non-contributory. TECHNIQUE: Digital bilateral breast ir[place] (3D mammographic acquisition) in the CC and MLO projections. 2-D mediolateral oblique (MLO) and craniocaudad (CC) views of both breasts were obtained. CAD: Full Field Digital Mammography with Computer Added Detection was performed. COMPARISON: Comparison is made with prior study dated May 14, 2017 and May 13, 2016. FINDINGS: Breast Composition: The breasts are heterogeneously dense, which may obscure small masses. There are no dominant masses or suspicious calcifications. Stable appearance of the bilateral benign appearing axillary lymph nodes. No other significant abnormalities are identified. There has been no significant change since the prior study. BI/SCREENING MAMM (CAD), BILAT IMPRESSION: Stable bilateral screening mammogram. Yearly follow-up mammogram recommended. (A) ASSESSMENT CATEGORY: BIRADS Category 2: Benign. A letter regarding these results will be sent to the patient by the facility within 30 days. Approximately 10% of breast cancers are not detected by mammography. A normal mammogram should not delay biopsy of a clinically suspicious abnormality. [id number] Electronically Signed: Narinder Hyatt MD at 13:18 EDT Tel [phone], Service support ,
== END ==
PROVIDERS: Visit Provider Obstetrics & Gynecology
DX: Z12.31 Encounter for screening mammogram for malignant neoplasm of breast (principal)
CPT/HCPCS: 77063; 77067

== ENCOUNTER → 2018-09-15 14:09 | Outpatient (CLI) | payer BC, SELFPAY ==
[2018-09-15 13:09] VITALS: BMI 31.4
--- NOTE | 2018-09-15 14:16 | RAD_ITS ---
STUDY: X-RAY - CERVICAL SPINE REASON FOR EXAM: Female, 43 years old. Follow-up TECHNIQUE: 3 view(s) of the cervical spine were obtained. COMPARISON: None FINDINGS: There is a Mobi-C cervical disc displacement at C5-C6. The cervical spine is straightened most likely secondary to muscle spasm. There are no acute fractures. The rest of the disc spaces are normal. The prevertebral soft tissues are normal. RAD/Cerv Spine 2 or 3 Views IMPRESSION: Mobi -C cervical disc replacement at C5-C6 Electronically Signed: Mau Buitrago MD at 7:31 EST Tel , Service support ,
== END ==
PROVIDERS: Family Provider Family Medicine; PCP Family Medicine
DX: M54.12 Radiculopathy, cervical region (principal)
CPT/HCPCS: 72040

== ENCOUNTER → 2018-10-27 05:50 | Outpatient (CLI) | payer BC, SELFPAY ==
--- NOTE | 2018-09-11 15:39 | PCM.HPOB.BLA ---
History and Physical Date of Admission: 09/23/18 PREOPERATIVE HISTORY AND PHYSICAL: On 09/10/2018, Jennifer Roberts, a 43 year old female 2 0 0 0 2, presented for: -- Pre-Op -- Jennifer is here for Pre-Op visit for planned Dx Lap, then LAVH/BS, R O-oophorectomy on 09/23/18 @ [facility]. Consent read and signed. Surgical literature provided. Denies any Sx illness; she is afebrile here. Coupon for Chlorhexidine body wash given to be picked up @ [facility] Retail pharmacy today; reviewed; shower instructions. PAT 09/15/18 @ 1:00 @ [facility]. PAT booklet given. She was told to stop BASA 10 days prior to surgery. Med list updated today. kbm As above. Here for preop appt. Planned LAVH, R oophorectomy and BSO for chronic pelvic pain. Prior op note from years ago reviewed and at that time endometriosis noted bilateral ovarian fossae and at uterosacral ligament. H/O TIA and is normally on ASA daily which she will stop preop and resume later the day of surgery. She declines open procedure (aware that any L/S surgery may result in open procedure) and also declines removal of the L ovary. IF severe pelvic adhesions, she prefers laparoscopy only to document and then stop case if likely would need to convert to open procedure. Counselled that the remaining left ovary may result in further growth of endometriosis. All questions answered to her satisfaction and consents signed. EB ALLERGIES: Naproxen and Intolerance-unknown MEDICATIONS HISTORY: Patient is also takin. Alaway 0.025 % drops 2. Lexapro 20 mg tablet, One tablet by mouth daily 3. lisinopril 40 mg tablet, One tablet by mouth daily 4. rosuvastatin 10 mg tablet, One tablet by mouth daily 5. spironolactone 100 mg tablet, One tablet by mouth daily REVIEW OF SYSTEMS: GENERAL - h/o small stroke SKIN - acne EYES - Denies visual changes EARS - Denies difficulty hearing NOSE - Denies nasal congestion or bleeding MOUTH - Denies sore throat or difficulty swallowing NECK - Denies pain or swelling RESPIRATORY - Denies shortness of breath or wheezing CARDIOVASCULAR - Denies palpitations or chest pain GASTROINTESTINAL - Denies nausea, vomiting, diarrhea, constipation GENITOURINARY - painful and heavy menses MUSCULOSKELETAL - back pain NEUROLOGICAL - Denies localized numbness or weakness PSYCHIATRIC - Anxiety-- On Lexapro ENDOCRINE - Denies heat or cold intolerance, weight loss or gain HEMATO-IMMUNOLOGIC - Denies excessive bleeding with cuts PAST HISTORY: Breast/Ovarian/Colon Cancers - Denies Infections - Chicken pox and cervical dysplasia Illnesses - seasonal allergies and anxiety Accidents - no injuries of consequence History of Abnormal PAPS - yes, 1993 Hospitalizations - see surgery, Childbirth, see surgery, Childbirth and see surgery pertusis- 2004, stroke and 02/18; SURGICAL HISTORY: 1. wisdom teeth 2. cryotherapy 3. LASIK 03/11 4. Laparoscopy, 5. microdiscectomy, 06/21 MENSTRUAL HISTORY: LMP Known?- Definite Amount/Duration - 7 days, Regularity - Regular, Frequency - monthly days, LMP - 09/04/18, Age Onset Menarche - 8 PAST PREGNANCIES: Total Pregnancies - 2; Full Term Pregnancies - 2; Premature - 0; Abortions, Induced - 0; Abortions, Spontaneous - 0; Ectopics - 0; Multiple Births - 0; Living Children - 2 FAMILY HISTORY: Father - Unknown Disease; Mother - FH: Endometriosis; Mother - Cancer; SOCIAL HISTORY: Alcohol Use - denies use Smoking - denies use Diet - balanced Diet Lifestyle - moderate stress lifestyle Exercise - active Seat Belt Use - always 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 Illicit Drug Use - denies use of street drugs Sexual Activity - single sexual partner and Residence - owns a home Spouse-Sig Other Name - Jase Spouse-Sig Other Occupation - [employer] [place] - [place] Children Name(s) - , Naif Control - condoms PHYSICAL EXAMINATION BP- 138/78 Sitting, Right arm, regular cuff Temp- 98.2 Taken Orally Weight- 179.00 lbs Height- 63.75 inch BMI:31.03 CONSTITUTIONAL - NAD, well nourished, and well developed HEENT - Normocephalic, PERRLA, EOMI NECK - no nuchal rigidity EXTREMITIES - No edema or calf tenderness NEUROLOGICAL - Cranial nerves II-XII grossly intact PSYCHIATRIC - A and O to time, place, person, mood and affect DETAILED PELVIC EXAM External Genitalia Vagina - non-tender without lesions Urethra/Urethral Meatus - non-tender Bladder - non-tender Vagina - no palpable lesions Cervix - without cervical motion tenderness and has normal size and features without evident lesions Uterus - 5-6 cm in size, mobile and nontender Adnexa - clear without masses or tenderness ASSESSMENT: 1. Dysmenorrhea, Unspecified 2. Endometriosis, Peritoneum 3. Irregular Menstrual Bleed, Also BTB 4. Pelvic Pain PLAN BY DIAGNOSIS: 1. Dysmenorrhea, Unspecified, Endometriosis, Peritoneum, Endometriosis, Unspecified, Irregular Menstrual Bleed, Also BTB, Low Back Pain, Other Specified Counseling, Pelvic Pain Reviewed history and physical. Reviewed prior op note for endometriosis. endometriosis noted bilateral ovarian fossae, L uterosacral ligament Declines medical management. Would like to have hysterectomy, but DECLINES ANY OPEN PROCEDURE. Plan: LAVH, bilateral salpingectomy and R oophorectomy. DECLINES removal of L ovary and is aware that may have continued pain due to remaining ovary, remaining endometriosis. Consents signed and on chart. RTO in 2 wk postop Approximately 20 minutes of patient encounter spent in counseling. 2. Low Back Pain Discomfort near sacroiliac joints bilaterally. Advised re comfort measures. May also consider : chiropracter, massage, physical therapy. Possibly referred pain from uterus, but a little higher than usual for uterine pain. Medication(s) Stopped/Reason: multivitamin tablet - Other, Lexapro 10 mg tablet - Other, amlodipine 5 mg tablet - Other, atorvastatin 40 mg tablet - Other, clopidogrel 75 mg tablet - Other and lisinopril 20 mg tablet - Other
--- NOTE | 2018-09-11 15:43 | HP.PCM_ITS ---
History and Physical Date of Admission: 09/23/18 PREOPERATIVE HISTORY AND PHYSICAL: On 09/10/2018, Jennifer Roberts, a 43 year old female 2 0 0 0 2, presented for: -- Pre-Op -- Jennifer is here for Pre-Op visit for planned Dx Lap, then LAVH/BS, R O- oophorectomy on 09/23/18 @ [facility]. Consent read and signed. Surgical literature provided. Denies any Sx illness; she is afebrile here. Coupon for Chlorhexidine body wash given to be picked up @ [facility] Retail pharmacy today; reviewed; shower instructions. PAT 09/15/18 @ 1:00 @ [facility]. PAT booklet given. She was told to stop BASA 10 days prior to surgery. Med list updated today. kbm As above. Here for preop appt. Planned LAVH, R oophorectomy and BSO for chronic pelvic pain. Prior op note from years ago reviewed and at that time endometriosis noted bilateral ovarian fossae and at uterosacral ligament. H/O TIA and is normally on ASA daily which she will stop preop and resume later the day of surgery. She declines open procedure (aware that any L/S surgery may result in open procedure) and also declines removal of the L ovary. IF severe pelvic adhesions, she prefers laparoscopy only to document and then stop case if likely would need to convert to open procedure. Counselled that the remaining left ovary may result in further growth of endometriosis. All questions answered to her satisfaction and consents signed. EB ALLERGIES: Naproxen and Intolerance-unknown MEDICATIONS HISTORY: Patient is also takin. Alaway 0.025 % drops 2. Lexapro 20 mg tablet, One tablet by mouth daily 3. lisinopril 40 mg tablet, One tablet by mouth daily 4. rosuvastatin 10 mg tablet, One tablet by mouth daily 5. spironolactone 100 mg tablet, One tablet by mouth daily REVIEW OF SYSTEMS: GENERAL - h/o small stroke SKIN - acne EYES - Denies visual changes EARS - Denies difficulty hearing NOSE - Denies nasal congestion or bleeding MOUTH - Denies sore throat or difficulty swallowing NECK - Denies pain or swelling RESPIRATORY - Denies shortness of breath or wheezing CARDIOVASCULAR - Denies palpitations or chest pain GASTROINTESTINAL - Denies nausea, vomiting, diarrhea, constipation GENITOURINARY - painful and heavy menses MUSCULOSKELETAL - back pain NEUROLOGICAL - Denies localized numbness or weakness PSYCHIATRIC - Anxiety-- On Lexapro ENDOCRINE - Denies heat or cold intolerance, weight loss or gain HEMATO-IMMUNOLOGIC - Denies excessive bleeding with cuts PAST HISTORY: Breast/Ovarian/Colon Cancers - Denies Infections - Chicken pox and cervical dysplasia Illnesses - seasonal allergies and anxiety Accidents - no injuries of consequence History of Abnormal PAPS - yes, 1993 Hospitalizations - see surgery, Childbirth, see surgery, Childbirth and see surgery pertusis- 2004, stroke and 02/18; SURGICAL HISTORY: 1. wisdom teeth 2. cryotherapy 3. LASIK 03/11 4. Laparoscopy, 5. microdiscectomy, 06/21 MENSTRUAL HISTORY: LMP Known?- Definite Amount/Duration - 7 days, Regularity - Regular, Frequency - monthly days, LMP - 09/04/18, Age Onset Menarche - 8 PAST PREGNANCIES: Total Pregnancies - 2; Full Term Pregnancies - 2; Premature - 0; Abortions, Induced - 0; Abortions, Spontaneous - 0; Ectopics - 0; Multiple Births - 0; Living Children - 2 FAMILY HISTORY: Father - Unknown Disease; Mother - FH: Endometriosis; Mother - Cancer; SOCIAL HISTORY: Alcohol Use - denies use Smoking - denies use Diet - balanced Diet Lifestyle - moderate stress lifestyle Exercise - active Seat Belt Use - always 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 Illicit Drug Use - denies use of street drugs Sexual Activity - single sexual partner and Residence - owns a home Spouse-Sig Other Name - Jase Spouse-Sig Other Occupation - [employer] - [place] Children Name(s) - , Naif Control - condoms PHYSICAL EXAMINATION BP- 138/78 Sitting, Right arm, regular cuff Temp- 98.2 Taken Orally Weight- 179.00 lbs Height- 63.75 inch BMI:31.03 CONSTITUTIONAL - NAD, well nourished, and well developed HEENT - Normocephalic, PERRLA, EOMI NECK - no nuchal rigidity EXTREMITIES - No edema or calf tenderness NEUROLOGICAL - Cranial nerves II-XII grossly intact PSYCHIATRIC - A and O to time, place, person, mood and affect DETAILED PELVIC EXAM External Genitalia Vagina - non-tender without lesions Urethra/Urethral Meatus - non-tender Bladder - non-tender Vagina - no palpable lesions Cervix - without cervical motion tenderness and has normal size and features without evident lesions Uterus - 5-6 cm in size, mobile and nontender Adnexa - clear without masses or tenderness ASSESSMENT: 1. Dysmenorrhea, Unspecified 2. Endometriosis, Peritoneum 3. Irregular Menstrual Bleed, Also BTB 4. Pelvic Pain PLAN BY DIAGNOSIS: 1. Dysmenorrhea, Unspecified, Endometriosis, Peritoneum, Endometriosis, Unspecified, Irregular Menstrual Bleed, Also BTB, Low Back Pain, Other Specified Counseling, Pelvic Pain Reviewed history and physical. Reviewed prior op note for endometriosis. endometriosis noted bilateral ovarian fossae, L uterosacral ligament Declines medical management. Would like to have hysterectomy, but DECLINES ANY OPEN PROCEDURE. Plan: LAVH, bilateral salpingectomy and R oophorectomy. DECLINES removal of L ovary and is aware that may have continued pain due to remaining ovary, remaining endometriosis. Consents signed and on chart. RTO in 2 wk postop Approximately 20 minutes of patient encounter spent in counseling. 2. Low Back Pain Discomfort near sacroiliac joints bilaterally. Advised re comfort measures. May also consider : chiropracter, massage, physical therapy. Possibly referred pain from uterus, but a little higher than usual for uterine pain. Medication(s) Stopped/Reason: multivitamin tablet - Other, Lexapro 10 mg tablet - Other, amlodipine 5 mg tablet - Other, atorvastatin 40 mg tablet - Other, clopidogrel 75 mg tablet - Other and lisinopril 20 mg tablet - Other
[2018-09-15 13:09] VITALS: BP 113/71; PULSE 89; RESP 16; TEMP 37.5; O2SAT 98; BMI 31.4
[2018-09-15 15:08] LABS: Hematocrit 43.9 % (37-47); Mean Corp Hgb Conc 31.9 g/gl (32-36); Mean Corpuscular Volume 91.1 fL (81-99); Mean Platelet Vol. 10.9 fl (6.2-12.0); Platelet Count 290 K/mm3 (150-450); RBC Distribution Width CV 13.2 % (11.6-14.6); RBC Distribution Width SD 43.4 fl (35.1-43.9); Red Blood Count 4.82 M/mm3 (4.2-5.4); White Blood Count 9.1 K/mm3 (4.4-11.0)
[2018-09-15 15:09] LABS: Scan Indicated on CBC? Y/N NO
[2018-09-15 15:16] LABS: International Normalized Ratio 0.9; Prothrombin Time (Protime)PT. 12.5 SECONDS (11.7-14.9)
[2018-09-15 15:17] LABS: Partial Thromboplast Time 29.8 Seconds (24.1-36.2)
[2018-09-15 15:59] LABS: Anion Gap 5 (5-15); BUN 11 mg/dL (7-18); BUN/Creat Ratio 10.5 RATIO (10-20); Calcium,Total 8.6 mg/dL (8.5-10.1); Chloride 105 mmol/L (98-107); Creatinine, Serum 1.05 mg/dL (0.55-1.02); EST Glomerular Filtration Rate 60 mL/min (>60); Est Glom Filt Rate - Afr Amer 73 mL/min (>60); Estimated Creatinine Clearance 58.43 ml/min; Glucose 92 mg/dL (74-106); Potassium 4.1 mmol/L (3.5-5.1); Sodium Level 138 mmol/L (136-145)
== END ==
PROVIDERS: Anesthesiology; Family Provider Family Medicine; PCP Family Medicine; Referring Provider Obstetrics & Gynecology; Visit Provider Obstetrics & Gynecology
DX: Z01.818 Encounter for other preprocedural examination (principal); N80.3 Endometriosis of pelvic peritoneum; N94.6 Dysmenorrhea, unspecified; R10.2 Pelvic and perineal pain; I10 Essential (primary) hypertension; M54.5 Low back pain; G89.29 Other chronic pain; F41.9 Anxiety disorder, unspecified; Z79.82 Long term (current) use of aspirin; Z79.899 Other long term (current) drug therapy; Z86.73 Personal history of transient ischemic attack (TIA), and cerebral infarction without residual deficits
CPT/HCPCS: 80048; 85027; 85610; 85730; 86850; 86900

== ENCOUNTER 2018-10-28 10:55 | Day surgery (SDC) | payer BC, SELFPAY ==
[2018-09-15 13:09] VITALS: BMI 31.4
--- NOTE | 2018-10-27 17:31 | HP.PCM_ITS ---
History and Physical Date of Admission: 10/28/18 - chronic pelvic pain, endometriosis. irreg VB CURTIS ROBERTS Age: 43 Date of : 1975 HISTORY OF PRESENT ILLNESS: Curtis Roberts, a 43 year old female 2 0 0 0 2, presented for: -- Curtis is here for planned Dx Lap, then LAVH/BS, R-oophorectomy @ [facility] IF the procedure can be completed without laparotomy. She declines open case. Consent read and signed at prior visit. Surgical literature provided. Denies illness, and she is afebrile. Coupon for Chlorhexidine body wash given to be picked up @ [facility] Retail pharmacy at prior visit and instructions were reviewed. Her prior surgery was cancelled as her insurance refused coverage This denial was discovered incidentally by checking on their website and downloading information re their denial from their website. No formal fax or mailed notification of their refused coverage / denial was ever received. After peer to peer review in which the patient's history of endometriosis, and history of mini stroke / TIA which forced her to stop the OCP she was taking to control pelvic pain were reviewed. Advised the reviewer of the patient's options and limitations of these options: Depo Lupron would be expensive and potentially an ongoing cost. Trial of Mirena IUD may or may not suppress her pain. Higher dose Aygestin or Depo Provera although not theoretically able to increase her risk of stroke are not acceptable options for patient and cannot guarantee no adverse side effect from these medications. She has had persistent, increased pelvic pain off OCP -- especially in the RLQ. After this discussion: surgery approved. Planning LAVH, R oophorectomy and BSO for chronic pelvic pain. Prior op note from years ago reviewed and at that time endometriosis was noted at B ovarian fossae and at the uterosacral ligament. H/O TIA and is normally on ASA daily which she will stop preop and resume later the day of surgery. She declines an open procedure (aware that any L/S surgery may result in open procedure) and also declines removal of the L ovary. IF there are severe pelvic adhesions, she prefers laparoscopy only to document these adhesions and then stop case rather than convert to an open procedure. Counselled that the remaining left ovary may result in further growth of endometriosis, if present. All questions answered to her satisfaction and consents signed. EB ALLERGIES: Naproxen and Intolerance-unknown MEDICATIONS HISTORY: Patient is also takin. Alaway 0.025 % drops 2. Lexapro 20 mg tablet, One tablet by mouth daily 3. lisinopril 40 mg tablet, One tablet by mouth daily 4. rosuvastatin 10 mg tablet, One tablet by mouth daily 5. spironolactone 100 mg tablet, One tablet by mouth daily REVIEW OF SYSTEMS: GENERAL - h/o small stroke SKIN - acne EYES - Denies visual changes EARS - Denies difficulty hearing NOSE - Denies nasal congestion or bleeding MOUTH - Denies sore throat or difficulty swallowing NECK - Denies pain or swelling RESPIRATORY - Denies shortness of breath or wheezing CARDIOVASCULAR - Denies palpitations or chest pain GASTROINTESTINAL - Denies nausea, vomiting, diarrhea, constipation GENITOURINARY - painful and heavy menses MUSCULOSKELETAL - back pain NEUROLOGICAL - Denies localized numbness or weakness PSYCHIATRIC - Anxiety-- On Lexapro ENDOCRINE - Denies heat or cold intolerance, weight loss or gain HEMATO-IMMUNOLOGIC - Denies excessive bleeding with cuts PAST HISTORY: Breast/Ovarian/Colon Cancers - Denies Infections - Chicken pox and cervical dysplasia Illnesses - seasonal allergies and anxiety Accidents - no injuries of consequence History of Abnormal PAPS - yes, 1993 Hospitalizations - see surgery, Childbirth, see surgery, Childbirth and see surgery pertussis- 2004, stroke and 02/18; SURGICAL HISTORY: 1. wisdom teeth 2. cryotherapy 3. LASIK 03/11 4. Laparoscopy, 5. microdiscectomy, 06/21 MENSTRUAL HISTORY: LMP Known?- DefiniteAmount/Duration - 7 days, Regularity - Regular, Frequency - monthly days, LMP - 09/04/18, Age Onset Menarche - 8 PAST PREGNANCIES: Total Pregnancies - 2; Full Term Pregnancies - 2; Premature - 0; Abortions, Induced - 0; Abortions, Spontaneous - 0; Ectopics - 0; Multiple Births - 0; Living Children - 2 FAMILY HISTORY: Father - Unknown Disease; Mother - FH: Endometriosis; Mother - Cancer; SOCIAL HISTORY: Alcohol Use - denies use Smoking - denies use Diet - balanced Diet Lifestyle - moderate stress lifestyle Exercise - active Seat Belt Use - always 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 Dysmenorrhea, Unspecified 2. Endometriosis, Peritoneum 3. Irregular Menstrual Bleed, Also BTB 4. Pelvic Pain PLAN BY DIAGNOSIS: 1. Dysmenorrhea, Unspecified, Endometriosis, Irregular Menstrual Bleed, Pelvic Pain Reviewed history and physical. Reviewed prior operative note of surgery done for endometriosis. Endometriosis noted bilateral ovarian fossae, L uterosacral ligament Declines medical management. Would like to have hysterectomy, but DECLINES ANY OPEN PROCEDURE. Plan: Laparoscopy... with LAVH, bilateral salpingectomy and R oophorectomy. SPECIFICALLY DECLINES removal of Left ovary and is aware that may have continued pain due to that remaining ovary, remaining endometriosis. Consents signed and on chart. RTO for 2 wk postop check up Approximately 20 minutes of patient encounter spent in counseling.
[2018-10-28] VITALS (12 sets, daily range): BP systolic 83–116; BP diastolic 48–79; PULSE 72–104; RESP 12–16; TEMP 36.2–37; O2SAT 94–100; BMI 30.4
[2018-10-28] MEDS: Heparin Injection 5,000 UNITS/ML Syringe 5000 UNITS SC (11:24)
[2018-10-28 11:25] LABS: Internal QC Validated? YES +Cl - CLEAR BKGD
[2018-10-28 11:29] LABS: Pregnancy, Urine Negative Negative
--- NOTE | 2018-10-28 12:25 | PCM.PN.BLA ---
Progress Note H and P ADDENDUM: Discussed Laparoscopy, with proceeding to LAVH, bilateral salpingectomy and R oophorectomy. Reviewed anticipated procedure. At prior visits she had DECLINED open procedure and stated plan to perform laparoscopy first and stop the procedure if dense adhesions would require an open procedure/ MICAH. NOW PREFERS TO HAVE PROCEDURE Hysterectomy, bilateral salpingectomy and R oophorectomy EVEB if this requires an open procedure/laparotomy. Hoping that no open procedure would be needed BUT if laparotomy needed due to dense adhesions present, she wants hysterectomy today and agrees to open MICAH if indicated. Reviewed her discussion. Spouse present for discussion. OR team all made aware of amendment to procedure... hysterectomy today. Planned by LAVH, but by MICAH prn. Bilateral salpingectomy and R oophorectomy. Prefers still to leave in L ovary, and aware that residual endometriosis may continue to growth with ovary left.
--- NOTE | 2018-10-28 12:30 | HYST_PTH ---
PATIENT: CURTIS MARIA LOC: [facility] [place] U#:[id number] AGE/SX: 43/F ROOM: RE10/28/[address]: Dr. Lakeisha Curran MD : 1975 BED: DIS: 10/29/2018 SPEC #: [id number] RECD: 10/28/18 16:23 STATUS: ELISABETH REEstrella #: [id number] DAKOTAH: 10/28/18 12:[address]: Lakeisha Curran DEPT: SURGICAL PATHOLOGY RECD BY: Carlitos Werner ENTERED: 10/29/18 11:00 SP TYPE: HYSTERECT OTHR DR: Dr. Rachel Jacinto MD Tissues: Uterus, NOS Procedures: Surgery Specimen Level V HEADER OPERATION: Laparoscopic assisted vaginal hysterectomy, bilateral salpingectomy PRE-OP DIAGNOSIS: Dysmenorrhea, endometriosis, irregular menstrual bleed, pelvic pain TISSUE SUBMITTED: Uterus, cervix, bilateral fallopian tubes, right ovary MICROSCOPIC DIAGNOSIS Uterus, cervix, bilateral fallopian tubes and right ovary, vaginal hysterectomy, bilateral salpingectomy and right oophorectomy: Cervix - chronic inflammation. Endometrium - proliferative endometrium. Myometrium - superficial adenomyosis. - An intramural leiomyoma (0.5 cm in diameter). Bilateral fallopian tubes - no pathologic diagnosis. See comment. Right ovary - physiologic follicular and corpus luteal cyst. SJ:rg 10/30/18 COMMENT No fimbrial end is identified in the left fallopian tube. MICROSCOPIC DESCRIPTION Slides are reviewed. GROSS DESCRIPTION Received in fixative is one container labeled with the patient's name and designated uterus, cervix, bilateral fallopian tubes and right ovary. The specimen consists of a hysterectomy specimen consisting of uterus with cervix, attached bilateral fallopian tubes and right ovary. The uterus with cervix weighs 64 gm and measures 8 x 5 x 3.5 cm. The serosal surface is grider, glistening. The ectocervical mucosa is unremarkable. The external os is oval and patulous in contour. The endocervical canal measures 3 cm in length and the endocervical mucosa is without any mass lesion. The triangular endometrial cavity measures 4 cm in length and up to 2 cm in width. The endometrium is grider, glistening without any mass lesion and measures 0.2 cm in thickness. Sections of the myometrial wall do not reveal any mass lesion and it measures up to 1.5 cm in thickness. The right fallopian tube measures 5.5 cm in length add up to 0.5 cm in diameter. The fimbrial end is identified. No tubo-ovarian adhesions are noted. Sections of the fallopian tube reveal unremarkable cut surfaces. The soft to cystic right ovary measures 3.5 x 2 x 1 cm. Sections reveal multiple cysts filled with clear to hemorrhagic fluid. The largest cyst measures 1.5 cm in greatest dimension. The left fallopian tube measures 6 cm in length and 0.5 cm in diameter. No obvious fimbrial end is identified. Sections reveal unremarkable cut surfaces. Medical Billing Supervisor sections are submitted in ten cassettes as follows: 1 - anterior cervix, 2 - posterior cervix, 3 & 4 - anterior uterine wall, 5 & 6 - posterior uterine wall, 7 - right fallopian tube, 8 & 9 - right ovary, 10 - left fallopian tube. / PEYTON:rg 10/29/18 TC:5 CPT: 30453
[2018-10-28] MEDS: Bupiv/Epi 0.25% 30 ML Vial (13:10)
--- NOTE | 2018-10-28 14:48 | PCM.OPRPT ---
Report of Operation Date of Procedure: 10/28/18 Pre-Operative Diagnosis: chronic pelvic pain, RLQ pain, Dysmenorrhea. history of endometriosis Irregular bleeding Post-Operative Diagnosis: Same. No endometriosis noted Surgery/Procedure Performed:: LAVH, Bilateral salpingectomy. R oophorectomy. Description of Surgical Findings:: Findings; Normal appearing, anteverted uterus, fallopian tubes bilaterally and both ovaries normal appearing and freely mobile. No endometriosis was apparent. Gross inspection of bowel, omentum. liver edge WNL. director school of nursing: Jeancarlos Villaseñor director school of nursing: Génesis Paniagua RN Type of Anesthesia:: General Anesthesiologist: Ioana Wood - SCOT Specimen's removed: uterus, bilateral fallopian tubes, R ovary. Drains: Siddiqui 360 cc Estimated Blood Loss (mL): 100 cc Fluids Replaced: LR Description of Procedure: Narrative account: After the risks, benefits, alternatives of procedure had been reviewed with the patient, informed consent was obtained. The patient was taken back to the Operating room with an IV running. She was positioned on the operating table in dorsal supine position, where she was given general anesthesia. Once asleep she was repositioned to the dorsal lithotomy position and prepped and draped in the usual sterile fashion. A Siddiqui catheter was placed to drain the bladder prior to initiating the case. A weighted speculum was placed into the vagina and a single toothed tenaculum was placed at the anterior lip of the cervix and a Zumi uterine manipulator was placed through the cervix and the bulb inflated. The single toothed tenaculum and the weighted speculum were removed from the vagina. Attention was then turned to the anterior abdominal wall where 0. 5 % Marcaine with epinephrine was instilled at the suprapubic and infraumbilical skin and at a point midway between in the midline. Skin incisions were then created in the midline at the suprapubic skin and at the infraumbilical skin and midway between the two. While maintaining upward traction of the anterior abdominal wall a Veress needle was inserted through the umbilical incision into the peritoneal cavity. There was free drop of saline, low opening pressure and free flow of CO2 noted. Once the intraabdominal pressure had reached 12 mm of mercury the Veress needle was removed and a bladeless 5 mm trocar was placed through infraumbilical skin incision into the peritoneal cavity. Correct placement was confirmed using the scope. At this point the patient became bradycardic and the pneumoperitoneum was reduced as she was given medication to correct this bradycardia. After vital signs returned to normal, the pneumoperitoneum was slowly reestablished. Under direct visualization then with the patient in Trendelenburg position, a bladeless 5 mm trocar was inserted in through suprapubic skin incision into the peritoneal cavity and at a point midway between the infraumbilical and suprapubic trocars. The uterus as freely mobile and no adhesions were noted. no evidence of endometriosis was seen. The left ovary appeared normal The right ovary and fallopian tube were grasped and retracted medially and the right infundibulopelvic ligament was grasped sequentially and divided with a Sally LigaSure device. The right broad ligament was then divided sequentially down to the R round ligament. The L fallopian tube was next grasped and retracted medially and the left tube was excised from the left ovary, and left mesosalpinx. The left broad ligament was sequentially divided down to the left round ligament. Excellent hemostasis was noted. At this point the laparoscopic portion of the case was completed. The trocars were left in place, but the instruments were removed and gas turned off. A sterile drape was used to cover the abdomen. Attention was then turned to the vaginal portion of the case. The Zumi uterine manipulator was removed and the single toothed tenaculum repositioned on the cervix. The cervical mucosal was then incised circumferentially using Bovie cautery and a knife. The posterior cul de sac was entered by sharp dissection with Kate scissors and a weighted speculum was placed into the posterior cul se sac. Dissection then was initiated at the anterior cervix to enter the anterior cul se sac. The uterosacral ligaments were clamped bilaterally with curved Gurpreet clamps and the pedicles divided and suture ligated and tagged for later identification. Next the cardinal ligament was clamped bilaterally and divided and suture ligated. Adequate hemostasis was noted. The anterior cul de sac peritoneum was then entered by sharp dissection and a narrow Rosa retractor was placed into the anterior cul de sac to retract the bladder out of harm's way for the remainder of the case. The uterine arteries were clamped bilaterally , divided and suture ligated. Sequential pedicles were taken along both sides of the uterus, maintaining close approximation to the uterus. Each pedicle was secured with a Gurpreet clamp, divided and suture ligated until ultimately the uterine fundus was reached. The superior pedicles on each side were secured with a curved Gurpreet clamp and the remaining uterus and attached fallopian tubes and right ovary were surgically amputated and set aside. The superior pedicle was then suture ligated, then free tied and tagged for identification. The superior pedicles were dry. There was bleeding noted along the vaginal cuff . The peritoneum was then closed with a running purse string suture of 1 Vicryl, incorporating the superior pedicles and uterosacral ligament tags. Excellent hemostasis was noted. The vaginal cuff was then reapproximated using interrupted and figure of eight stitches of 1 Vicryl. Excellent hemostasis was noted. A second look laparoscopy was then performed: the pneumoperitoneum was reestablished and the vaginal cuff and pedicles inspected. Excellent hemostasis was noted at all pedicles. Papa was dusted over the pedicles for continued hemostasis. At this point the the procedure was terminated. The pneumoperitoneum was reduced and the instruments and trocars were removed from he the anterior abdominal wall skin. The skin incisions were closed with 4-0 Monocryl in a subcuticular fashion. and steristrips were applied to the incisions Dermabond was applied to the other skin incisions. Excellent hemostasis was noted. At this point the procedure was terminated. The patient was returned to dorsal supine position. She was awakened from general anesthesia. She was transferred to the recovery room bed in stable condition after tolerating the procedure well. Sponge, lap, needle and instrument counts were correct x two. Medications given preop and intraoperatively included: 10 cc of 1/2 % Marcaine with epinephrine --used as a subcutaneous block and Toradol 30 mg IV x one. For a complete listing of medications given preop and intraop , please see the anesthesia record. - Complications none - Admit VTE Documentation VTE Present on Admission: No VTE Mechan Device Prophylaxis: SCD's
[2018-10-28] MEDS: Ketorolac 30 MG/ML Syringe IV ×2 (16:22→21:11)
[2018-10-28] MEDS: Lactated Ringers 1,000 ML 125 ML IV (18:35)
[2018-10-28] MEDS: Atorvastatin Calcium 20 MG Tablet PO (21:11)
[2018-10-28] MEDS: Docusate Sodium 100 MG Capsule PO (21:11)
[2018-10-28] MEDS: Lisinopril 20 MG Tablet PO (21:11)
[2018-10-28] MEDS: Escitalopram Oxalate 20 MG Tablet PO (21:12)
[2018-10-28] MEDS: oxyCODONE 5 MG Tablet PO (23:00)
[2018-10-29 02:53] VITALS: BP 96/51; PULSE 95; RESP 14; TEMP 37.1; O2SAT 97
[2018-10-29] MEDS: Ketorolac 30 MG/ML Syringe IV (03:06)
--- NOTE | 2018-10-29 07:24 | PCM.PROGNOTE ---
Subjective: POD#1 LAVH bilateral salpingectomy R oophorectomy. Doing OK States OxyIR more effective than Toradol for her pain. No OxyIR since last night and requesting pain med now. Tolerating diet / snacks, some mild nausea last night but this resolved. throat scratchy. Minimal vaginal dischg. Siddiqui out but not up to void yet. Objective: Lying in bed. IV fluids running. Blood draw in progress. tolerating well. - Physical Exam General: Alert, Oriented x3, Cooperative, No apparent distress HEENT: Atraumatic Oral: Moist Mucosa Neck: Supple Abdomen: Soft Skin: Incision - L/S incisions with Dermabond. CDI Neurological: Cranial nerves II-XII grossly intact Psych/Mental Status: Normal Affect Vital Signs Temp Pulse Resp BP Pulse Ox 98.7 F 95 14 96/51 L 97 10/29/18 02:53 10/29/18 02:53 10/29/18 02:53 10/29/18 02:53 10/29/18 02:53 Oxygen Delivery Method Room Air Weight: 80.5 kg Body Mass Index (BMI) 30.4 Intake and Output for Last 24 Hours 10/27/18 10/28/18 10/29/18 23:59 23:59 23:59 Intake Total 2421 / 2421 4580 / 4580 Output Total 540 / 540 3000 / 3000 Balance 1881 / 1881 1580 / 1580 Laboratory Tests Past 24 Hrs 10/28/18 10/28/18 10/29/18 11:10 11:18 07:20 WBC RBC Hgb Hct MCV MCH MCHC RDW RDW Differential Plt Count Sodium Pending Potassium Pending Chloride Pending Carbon Dioxide Pending Anion Gap Pending BUN Pending Creatinine Pending Est GFR (MDRD) Af Amer Pending Est GFR (MDRD) Non-Af Pending BUN/Creatinine Ratio Pending Glucose Pending Calcium Pending Urine Test Negative Blood Type O POSITIVE Antibody Screen NEGATIVE 10/29/18 07:20 WBC Pending RBC Pending Hgb Pending Hct Pending MCV Pending MCH Pending MCHC Pending RDW Pending RDW Differential Pending Plt Count Pending Sodium Potassium Chloride Carbon Dioxide Anion Gap BUN Creatinine Est GFR (MDRD) Af Amer Est GFR (MDRD) Non-Af BUN/Creatinine Ratio Glucose Calcium Urine Test Blood Type Antibody Screen Medical Necessity - Tobacco Use Smoking Status: Never smoker Tobacco Use: Non-smoker Assessment/Plan All Active Problems (Last Reviewed 11/09/17 @ 10:09 by Lakeihsa Hercules) Intermittent left arm numbness/weakness (Acute) Stroke (Acute) POD#1 LAVH, Bilateral salpingectomy. R oophorectomy Reviewed operative findings. Stable postop. labs pending. Inc diet and activity as tolerated. Continue po meds, IV toradol or may switch to Ibuprofen for dischg later today if criteria met. Siddiqui out and voiding trial in progress Anticipate dischg later today.
[2018-10-29] MEDS: oxyCODONE 5 MG Tablet PO (07:26)
[2018-10-29 07:30] LABS: Hematocrit 34.1 % (37-47); Mean Corp Hgb Conc 32.3 g/gl (32-36); Mean Corpuscular Hgb 29.6 pg (27.0-32.0); Mean Corpuscular Volume 91.9 fL (81-99); Platelet Count 197 K/mm3 (150-450); RBC Distribution Width CV 13.1 % (11.6-14.6); RBC Distribution Width SD 44.1 fl (35.1-43.9); Red Blood Count 3.71 M/mm3 (4.2-5.4)
--- NOTE | 2018-10-29 07:30 | PCM.DC.VHY ---
Discharge Diet: No Restrictions Discharge Activity: May not drive while taking narcotic pain medications., May Shower, May Take a Tub Bath Return to work on:: 12/14/18 May resume sexual activity in: 4-6 weeks Call your doctor if you observe: Fever of 101 or Higher, Inability to have a bowel movement, Using more than one pad per hour, Chest pain, Calf discomfort, Uncontrolled pain Cleanse incision/area with: Soap & Water Additional Instructions: You may take Tylenol 500 mg tabs, up to two every 8 hrs for pain. Add Ibuprofen 600 mg by mouth every 6-8 hrs as needed. Add 1-2 tabs of OxyIR by mouth every 6 hrs for more severe pain. 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 Nothing in vagina and no lifting more than 20# for 4-6 wks to allow healing. Allergies/Adverse Reactions: Allergies prednisone Allergy (Verified 10/28/18 11:34) Swelling Medications to take at Discharge Escitalopram Oxalate [Lexapro] 20 mg PO QHS 08/21/16 cholecalciferol (vitamin D3) 1,000 unit capsule 1,000 unit PO QDAY 11/09/17 Ketotifen Fumarate [Alaway] 1 drop EACH EYE BID PRN 02/20/18 Aspirin [Aspirin, Baby] 81 mg PO DAILY@0800 #30 tab.chew 02/23/18 L.acidoph,Paracasei, B.lactis [Probiotic] 1 each PO DAILY 09/15/18 Lisinopril [Zestril] 20 mg PO BID 09/15/18 Rosuvastatin Calcium [Crestor] 10 mg PO QHS 09/15/18 Spironolactone [Aldactone] 100 mg PO DAILY 09/15/18 Ubidecarenone [Coq-10] 100 mg PO QHS 09/15/18 Acetaminophen [Tylenol] 1,000 mg PO Q8H PRN PRN tablet 10/29/18 Docusate Sodium [Colace] 100 mg PO BID #30 capsule 10/29/18 Ibuprofen [Motrin] 600 mg PO Q6H PRN PRN #30 tablet 10/29/18 Oxycodone [Oxyir] 5 - 10 mg PO Q6H PRN PRN 7 Days #20 tablet 10/29/18 Polyethylene Glycol 3350 [Miralax] 17 gm PO DAILY #14 packet 10/29/18 The following prescriptions were given: Ibuprofen [Motrin] 600 mg PO Q6H PRN PRN #30 tablet PRN Reason: Mild Pain (1-3/10) Oxycodone [Oxyir] 5 - 10 mg PO Q6H PRN PRN 7 Days #20 tablet PRN Reason: Mod-Severe Pain (4-10/10) Polyethylene Glycol 3350 [Miralax] 17 gm PO DAILY #14 packet Docusate Sodium [Colace] 100 mg PO BID #30 capsule Orders to be completed after discharge: Type & Screen Time Frame: 10/28/18, Facility: [facility], Location: Lab Survey, Non Patient ,Urine Time Frame: 10/28/18, Location: Laboratory Primary Care Physician: Rachel Jacinto MD [Primary Care Provider] - Test Results: Test results from this visit will be discussed in further detail at your follow-up appointment, if applicable. Please Follow Up With: Lakeisha Curran MD - [phone] When: call to make appt for two weeks postoperative check up Proposed Discharge Date: 10/29/18
[2018-10-29 07:32] LABS: Scan Indicated on CBC? Y/N NO
--- NOTE | 2018-10-29 07:38 | DCINST_ITS ---
Discharge Diet: No Restrictions Discharge Activity: May not drive while taking narcotic pain medications., May Shower, May Take a Tub Bath Return to work on:: 12/14/18 May resume sexual activity in: 4-6 weeks Call your doctor if you observe: Fever of 101 or Higher, Inability to have a bowel movement, Using more than one pad per hour, Chest pain, Calf discomfort, Uncontrolled pain Cleanse incision/area with: Soap & Water Additional Instructions: You may take Tylenol 500 mg tabs, up to two every 8 hrs for pain. Add Ibuprofen 600 mg by mouth every 6-8 hrs as needed. Add 1-2 tabs of OxyIR by mouth every 6 hrs for more severe pain. 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 Nothing in vagina and no lifting more than 20# for 4-6 wks to allow healing. Allergies/Adverse Reactions: Allergies prednisone Allergy (Verified 10/28/18 11:34) Swelling Medications to take at Discharge Escitalopram Oxalate [Lexapro] 20 mg PO QHS 08/21/16 cholecalciferol (vitamin D3) 1,000 unit capsule 1,000 unit PO QDAY 11/09/17 Ketotifen Fumarate [Alaway] 1 drop EACH EYE BID PRN 02/20/18 Aspirin [Aspirin, Baby] 81 mg PO DAILY@0800 #30 tab.chew 02/23/18 L.acidoph,Paracasei, B.lactis [Probiotic] 1 each PO DAILY 09/15/18 Lisinopril [Zestril] 20 mg PO BID 09/15/18 Rosuvastatin Calcium [Crestor] 10 mg PO QHS 09/15/18 Spironolactone [Aldactone] 100 mg PO DAILY 09/15/18 Ubidecarenone [Coq-10] 100 mg PO QHS 09/15/18 Acetaminophen [Tylenol] 1,000 mg PO Q8H PRN PRN tablet 10/29/18 Docusate Sodium [Colace] 100 mg PO BID #30 capsule 10/29/18 Ibuprofen [Motrin] 600 mg PO Q6H PRN PRN #30 tablet 10/29/18 Oxycodone [Oxyir] 5 - 10 mg PO Q6H PRN PRN 7 Days #20 tablet 10/29/18 Polyethylene Glycol 3350 [Miralax] 17 gm PO DAILY #14 packet 10/29/18 The following prescriptions were given: Ibuprofen [Motrin] 600 mg PO Q6H PRN PRN #30 tablet PRN Reason: Mild Pain (1-3/10) Oxycodone [Oxyir] 5 - 10 mg PO Q6H PRN PRN 7 Days #20 tablet PRN Reason: Mod-Severe Pain (4-10/10) Polyethylene Glycol 3350 [Miralax] 17 gm PO DAILY #14 packet Docusate Sodium [Colace] 100 mg PO BID #30 capsule Orders to be completed after discharge: Type & Screen Time Frame: 10/28/18, Facility: [facility], Location: Lab Survey, Non Patient ,Urine Time Frame: 10/28/18, Location: Laboratory Primary Care Physician: Rachel Jacinto MD [Primary Care Provider] - Test Results: Test results from this visit will be discussed in further detail at your follow- up appointment, if applicable. Please Follow Up With: Lakeisha Curran MD - [phone] When: call to make appt for two weeks postoperative check up Proposed Discharge Date: 10/29/18
[2018-10-29 07:50] VITALS: O2SAT 98
[2018-10-29 08:08] LABS: BUN 9 mg/dL (7-18); Creatinine, Serum 1.06 mg/dL (0.55-1.02); EST Glomerular Filtration Rate 60 mL/min (>60); Estimated Creatinine Clearance 57.88 ml/min; Glucose 93 mg/dL (74-106)
[2018-10-29 08:09] LABS: Anion Gap 3 (5-15); BUN/Creat Ratio 8.5 RATIO (10-20); Calcium,Total 7.8 mg/dL (8.5-10.1); Chloride 109 mmol/L (98-107); Est Glom Filt Rate - Afr Amer 72 mL/min (>60); Sodium Level 142 mmol/L (136-145)
[2018-10-29 09:15] VITALS: BP 89/53; PULSE 90; RESP 16; TEMP 36.6; O2SAT 98
[2018-10-29] MEDS: Docusate Sodium 100 MG Capsule PO (09:55)
[2018-10-29] MEDS: 0.9% NaCl Peripheral Flush Adult/Peds IV (09:55)
[2018-10-29] MEDS: Aspirin 81 MG TAB.CHEW PO (09:55)
[2018-10-29] MEDS: Enoxaparin 40 MG/0.4 ML Syringe SC (09:56)
[2018-10-29] MEDS: Polyethylene Glycol 3350 17 GM PACKET PO (10:00)
[2018-10-29 10:34] VITALS: BP 80/50; PULSE 76; RESP 16; TEMP 36.9; O2SAT 96
== END 2018-10-29 11:15 | disposition home or self-care (01) ==
LOC: SDC 10:56 → AC 10:56 → MS2 10-29 08:25
PROVIDERS: Family Provider Family Medicine; PCP Family Medicine; Referring Provider Obstetrics & Gynecology; Visit Provider Obstetrics & Gynecology
PROC: 0UT9FZZ Resection of Uterus, Via Natural or Artificial Opening With Percutaneous Endoscopic Assistance (ICD-10-PCS; CPT 58552; principal; 2018-10-28 12:05)
DX: N72 Inflammatory disease of cervix uteri (principal); N80.0 Endometriosis of uterus; D25.1 Intramural leiomyoma of uterus; N83.11 Corpus luteum cyst of right ovary; N83.01 Follicular cyst of right ovary; R00.1 Bradycardia, unspecified; G89.29 Other chronic pain; R10.2 Pelvic and perineal pain; I10 Essential (primary) hypertension; E78.00 Pure hypercholesterolemia, unspecified; K58.9 Irritable bowel syndrome, unspecified; F41.9 Anxiety disorder, unspecified; Z79.82 Long term (current) use of aspirin; Z79.899 Other long term (current) drug therapy; Z86.73 Personal history of transient ischemic attack (TIA), and cerebral infarction without residual deficits
CPT/HCPCS: 00840; 58552; 36415; 80048; 81025; 85027; 86850; 86900; 88307; J7040; J7120; A4216; J2405

== ENCOUNTER → 2019-05-03 11:27 | Outpatient (CLI) | payer BC, SELFPAY ==
[2018-10-28 16:48] VITALS: BMI 30.4
[2019-05-03 12:58] LABS: BUN 12 mg/dL (7-18); Creatinine, Serum 0.92 mg/dL (0.55-1.02); Glucose 87 mg/dL (74-106)
[2019-05-03 12:59] LABS: Anion Gap 5 (5-15); Calcium,Total 9.1 mg/dL (8.5-10.1); Chloride 105 mmol/L (98-107); EST Glomerular Filtration Rate 70 mL/min (>60); Est Glom Filt Rate - Afr Amer 85 mL/min (>60); Potassium 4.4 mmol/L (3.5-5.1); Sodium Level 138 mmol/L (136-145)
== END ==
PROVIDERS: Family Provider Family Medicine; PCP Family Medicine; Referring Provider Family Medicine; Visit Provider Family Medicine
DX: I10 Essential (primary) hypertension (principal)
CPT/HCPCS: 36415; 80048

== ENCOUNTER → 2019-06-04 09:46 | Outpatient (CLI) | payer BC, SELFPAY ==
[2018-10-28 16:48] VITALS: BMI 30.4
--- NOTE | 2019-06-04 09:50 | BI_ITS ---
MAMMOGRAPHY - BILATERAL SCREENING REASON FOR EXAM: Female, 43 years old. Routine annual screening examination. PERTINENT HISTORY: Non-contributory. TECHNIQUE: Digital bilateral breast bryson (3D mammographic acquisition) in the CC and MLO projections. 2-D mediolateral oblique (MLO) and craniocaudad (CC) views of both breasts were obtained. CAD: Full Field Digital Mammography with Computer Added Detection was performed. COMPARISON: Comparison is made with prior study June 02, 2018 and May 14, 2017. FINDINGS: Breast Composition: The breasts are heterogeneously dense, which may obscure small masses. There are no dominant masses or suspicious calcifications. Stable appearance of the benign-appearing bilateral axillary lymph nodes. No other significant abnormalities are identified. There has been no significant change since the prior study. BI/SCREEN MAMM (CAD) W/BRYSON BILAT IMPRESSION: Stable bilateral screening mammogram. Yearly follow-up mammogram recommended. (A) ASSESSMENT CATEGORY: BIRADS Category 2: Benign. A letter regarding these results will be sent to the patient by the facility within 30 days. Approximately 10% of breast cancers are not detected by mammography. A normal mammogram should not delay biopsy of a clinically suspicious abnormality. [id number] Electronically Signed: Narinder Hyatt, at 11:26 EDT , Service support ,
== END ==
PROVIDERS: Family Provider Family Medicine; PCP Family Medicine; Referring Provider Family Medicine; Visit Provider Family Medicine
DX: Z12.31 Encounter for screening mammogram for malignant neoplasm of breast (principal)
CPT/HCPCS: 77063; 77067

== ENCOUNTER 2019-07-03 06:48 | Emergency (ER) | payer BC, SELFPAY ==
[2018-10-28 16:48] VITALS: BMI 30.4
[2019-07-03 06:49] VITALS: BP 121/87; PULSE 91; RESP 16; TEMP 36.7; O2SAT 98; BMI 29.9
--- NOTE | 2019-07-03 07:17 | CT_ITS ---
STUDY: CT BRAIN WITHOUT CONTRAST REASON FOR EXAM: Female, 43 years old. ATRAUMATIC RT FACIAL AND EAR PAIN RADIATION DOSAGE (If Supplied By Facility): CTDIvol = ( 44.99 ) mGy, DLP = ( 745.49 ) mGycm TECHNIQUE: Transaxial CT imaging of the brain was performed without administration of intravenous contrast material. Individualized dose optimization techniques were used for this CT. COMPARISON: No relevant priors. FINDINGS: Normal soft tissue structures. Normal calvarium. Normal size ventricles and extra-axial spaces for the patient's age. Normal white matter tracts of the cerebral hemispheres. Normal basal ganglia and thalami. Normal brainstem. Normal cerebellum. There is no intracranial hemorrhage. There are no findings of an acute ischemic infarction. Normal visualized paranasal sinuses. CT/Brain/Head without Contrast IMPRESSION: Normal unenhanced CT scan of the brain. Electronically Signed: Jessica Guzman MD at 8:04 EST Tel , Service support ,
--- NOTE | 2019-07-03 07:18 | ED.DCSUM_ITS ---
- ER Visit Summary Date of Service: 07/03/19 Chief Complaint: Right-sided facial, ear pain and sore throat History of Present Illness: The patient is a 43 F prior history of a stroke secondary to control pills, hypertension, high cholesterol and anxiety. Patient is also had cervical disc surgery and a hysterectomy. She states she has had a sinus headache for approximately a week. Saw her primary care physician's office and was prescribed Augmentin for possible sinusitis. She said since that time the pain is now by her right ear and hurts to swallow but she is able to swallow. Subjectively she has a fever and chills. No cough and no significant sinus drainage. She really denies any neck pain. She has no neurological symptoms no weakness or numbness. Physical Examination: Middle-aged female no acute distress vital signs are stable and afebrile. Initial blood pressure 121/87. She is accompanied by her . H EENT exam TMs are normal bilaterally. Posterior pharynx minimal erythema and minimal swelling. No exudate. No peritonsillar abscess. No trou ble swallowing or breathing. Frontal maxillary sinuses are nontender. There is no significant drainage or turbinate swelling to her nose. Neck is nontender. No lymphadenopathy. No right-sided mastoid tenderness or redness. Full range of motion to her neck. Trachea midline. No meningismus. Lungs are clear to auscultation bilaterally. Heart regular rhythm no murmur. Abdomen is soft. Neurologically she is awake and alert with no focal motor or sensory deficits. Equal symmetrical building performance consultant strength. Dorsi plantarflexion intact. NIH is 0. Normal speech. No facial droop. No facial tenderness. Test Results: CT of the brain without contrast shows no acute abnormality. Read by the radiologist as normal and reviewed by me. Emergency Department Course and Treatment: Patient's exam is basically normal except for mild erythema to posterior pharynx and minimal swelling. There is no signs of strep throat. She does not have any sinus tenderness. And her neurologic exam is completely normal. There is no signs of any ear infection or mastoid infection. There is no lymphadenopathy. Patient is concerned she has a tumor. I explained to both her and her her exam is normal. We will obtain a CT of the brain. She is also given 1 Ultram for pain. Repeat exam at 08:09 AM shows no change. Neurologic exam is normal. We went over all test results. Treatment Plan: Motrin for pain. Follow-up with your doctor. Disposition: Discharge Impression: Right facial pain and earache of uncertain etiology. This note was generated with [employer] dictation software. It may contain incorrect words, spelling, and punctuation that were not noted in review of the chart prior to signing ED Disposition - Plan for ED Patient: Disposition: Home or Assisted Living Referrals: Rachel Jacinto MD [Primary Care Provider] - 3-5 Days if not improving Additional Instructions: Tylenol and/or Motrin for pain. Ultram for more severe pain. Call and follow-up with your doctor this week if not improving.
--- NOTE | 2019-07-03 07:22 | DCINST.ED_ITS ---
ED Disposition - Plan for ED Patient: Disposition: Home or Assisted Living Prescriptions: Hydrocodone/Acetaminophen [[place] 5-325 Tablet] 1 ea PO Q4H PRN PRN #7 tab PRN Reason: Pain Or Fever Prescription Printed Referrals: Rachel Jacinto MD [Primary Care Provider] - 3-5 Days if not improving Additional Instructions: Tylenol and/or Motrin for pain. Ultram for more severe pain. Call and follow-up with your doctor this week if not improving.
[2019-07-03] MEDS: traMADol 50 MG Tablet 100 MG PO (07:34)
[2019-07-03 08:28] VITALS: BP 126/77; PULSE 72; RESP 15; O2SAT 98
== END 2019-07-03 08:29 | disposition home or self-care (01) ==
PROVIDERS: Emergency Provider Emergency Medicine; Family Provider Family Medicine; PCP Family Medicine
DX: R51 Headache (principal); H92.01 Otalgia, right ear; M54.2 Cervicalgia; I10 Essential (primary) hypertension; E78.00 Pure hypercholesterolemia, unspecified; F41.9 Anxiety disorder, unspecified; Z79.82 Long term (current) use of aspirin; Z79.899 Other long term (current) drug therapy; Z86.73 Personal history of transient ischemic attack (TIA), and cerebral infarction without residual deficits
CPT/HCPCS: 70450; 99283

== ENCOUNTER → 2020-04-28 10:42 | Outpatient (CLI) | payer BC, SELFPAY ==
--- NOTE | 2020-04-28 10:47 | RAD_ITS ---
STUDY: X-RAY - LUMBAR SPINE REASON FOR EXAM: Female, 44 years old. Low back pain x 6 months, gotten worse in the last couple weeks TECHNIQUE: 5 view(s) of the lumbar spine were obtained including oblique views. COMPARISON: None FINDINGS: There is straightening of the normal lumbar lordosis. There is partial lumbarization of the S1 vertebrae. There is no substantial scoliosis. There is a normal alignment of the vertebrae. Spondylosis and disc space narrowing at the 2 lower lumbar segments. The soft tissue structures are unremarkable. RAD/L/S Spine Min 4 Views IMPRESSION: Degenerative changes of the spine, as detailed above. Electronically Signed: Narinder Hyatt, at 11:33 EDT , Service support ,
== END ==
PROVIDERS: PCP Family Medicine; Referring Provider Family Medicine; Visit Provider Family Medicine
DX: M47.816 Spondylosis without myelopathy or radiculopathy, lumbar region (principal); M48.061 Spinal stenosis, lumbar region without neurogenic claudication
CPT/HCPCS: 72110

== ENCOUNTER → 2020-05-05 10:40 | Outpatient (CLI) | payer BC, SELFPAY ==
[2020-05-05 12:27] LABS: Anion Gap 4 (5-15); BUN 18 mg/dL (7-18); BUN/Creat Ratio 16.8 RATIO (10-20); Calcium,Total 9.3 mg/dL (8.5-10.1); Chloride 105 mmol/L (98-107); Creatinine, Serum 1.07 mg/dL (0.55-1.02); EST Glomerular Filtration Rate 59 mL/min (>60); Est Glom Filt Rate - Afr Amer 71 mL/min (>60); Glucose 88 mg/dL (74-106); Potassium 4.4 mmol/L (3.5-5.1); Sodium Level 135 mmol/L (136-145)
== END ==
PROVIDERS: PCP Family Medicine; Referring Provider Family Medicine; Visit Provider Family Medicine
DX: I10 Essential (primary) hypertension (principal)
CPT/HCPCS: 36415; 80048

== ENCOUNTER → 2020-06-05 11:21 | Outpatient (CLI) | payer BC, SELFPAY ==
--- NOTE | 2020-06-05 11:22 | BI_ITS ---
MAMMOGRAPHY - BILATERAL SCREENING REASON FOR EXAM: Female, 44 years old. Routine annual screening examination. PERTINENT HISTORY: Non-contributory. TECHNIQUE: Digital bilateral breast bryson (3D mammographic acquisition) in the CC and MLO projections. 2-D mediolateral oblique (MLO) and craniocaudad (CC) views of both breasts were obtained. CAD: Full Field Digital Mammography with Computer Added Detection was performed. COMPARISON: Comparison is made with prior study dated 06/04/2019 and 06/02/2018. FINDINGS: Breast Composition: The breasts are heterogeneously dense, which may obscure small masses. There are no dominant masses or suspicious calcifications. Stable benign-appearing bilateral axillary lymph nodes. No other significant abnormalities are identified. There has been no significant change since the prior study. BI/SCREEN MAMM (CAD) W/BRYSON BILAT IMPRESSION: Stable bilateral screening mammogram. Yearly follow-up mammogram recommended. (A) ASSESSMENT CATEGORY: BIRADS Category 2: Benign. A letter regarding these results will be sent to the patient by the facility within 30 days. Approximately 10% of breast cancers are not detected by mammography. A normal mammogram should not delay biopsy of a clinically suspicious abnormality. [id number] Electronically Signed: Narinder Hyatt, at 13:18 EST , Service support ,
== END ==
PROVIDERS: PCP Family Medicine; Referring Provider Family Medicine; Visit Provider Family Medicine
DX: Z12.31 Encounter for screening mammogram for malignant neoplasm of breast (principal)
CPT/HCPCS: 77063; 77067

== ENCOUNTER → 2021-02-06 16:11 | Outpatient (CLI) | payer BC, SELFPAY ==
[2021-02-06 18:23] LABS: AST(SGOT) 10 U/L (15-37); Alanine Aminotransfer ALT/SGPT 25 U/L (13-56); Anion Gap 3 (5-15); BUN 11 mg/dL (7-18); BUN/Creat Ratio 11.1 RATIO (10-20); Calcium,Total 9.3 mg/dL (8.5-10.1); Chloride 104 mmol/L (98-107); Cholesterol 150 mg/dL (200); Creatinine, Serum 0.99 mg/dL (0.55-1.02); EST Glomerular Filtration Rate 64 mL/min (>60); Est Glom Filt Rate - Afr Amer 77 mL/min (>60); Glucose 81 mg/dL (74-106); High Density Lipoprotein 36 mg/dL; Potassium 3.7 mmol/L (3.5-5.1); Sodium Level 138 mmol/L (136-145); Triglycerides 132 mg/dL; Very Low Density Lipoprotein 26 mg/dL (5-40)
[2021-02-06 18:55] LABS: Microalbumin,Random Urine < 5.0 mg/L (NO RANGE EST.)
== END ==
PROVIDERS: PCP Family Medicine; Visit Provider Family Medicine
DX: I10 Essential (primary) hypertension (principal); E78.5 Hyperlipidemia, unspecified
CPT/HCPCS: 36415; 80048; 80061; 82043; 82570; 84450; 84460

== ENCOUNTER 2021-04-11 10:00 | Outpatient (RCR) | payer BC, SELFPAY ==
--- NOTE | 2021-02-14 18:02 | HP.PTEVAL_ITS ---
Patient's Visit Information CURTIS MARIA is a 45 year old F referred to Physical Therapy by Dr. Rachel Jacinto MD with a diagnosis of Low back pain. Date of Evaluation: 02/14/21 Physical Therapist: Wero Oneal DPT - Visit Plan Frequency: 2x /Week Duration: 6 Weeks Plan: Start with REIL, prone and prone on elbows in AMs. Progress neutral spine core stability progressing to dynamic lumbar stability exercises as able. - Subjective Pt. is here today for her initial evaluation with diagnosis of low back pain. Pt. reports having pain in her lumbar spine for years, but has been worse for the last year. She reports no mech of injury. 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 Pain at B PSIS region and distal lumbar spine. Increases pain: bending, lifting, slouching when sitting, bent over picking weeds, bent over working on puzzles, rolling over in bed. Decreases pain: Tylenol, changing positions. Ice or heat no change. Xrays- lumbarization of S1, decreased disc height of L4/L5 and L5/S1. She has not tried chiro or stretching. She did have questions about yoga. Pt. is hopeful to reduce symptoms in order to get back to all recreational and household activities without limitations. - Pain Lumbar spine Pain Intensity (Out of 10): 2 Pain Intensity Range: 0, 10 B PSIS Pain Intensity (Out of 10): 2 Pain Intensity Range: 1, 10 - Objective POSTURE: Pt. has decent posture in sitting and standing. Slouching increases her symptoms (prolonged slouching). Pt. has no lateral shift, but sight increase in anterior pelvic tilt. PALPATION: Pt. has increased pain at L4, L5 and S1 as well as PSIS bilaterally. No pain throughout the rest of her spine. Mild hypomobility noted throughout. NEURO: pt. has normal sensation in BLEs and normal DTR of bilateral Achilles and Patellar tendons. ROM: LUMBAR SPINE: flexion nil loss mild increase NW, ext min loss increase NW, SB min/mod loss increase NW bilat, rotation min/nil loss NE bilat. Pt. has normal hip ROM. She does have tightness into B hip flexors. Pain with B hip IR at end range. MMT: BLEs 5/5 throughout, except B hip abd 4/5, and hip extension 4/5. Core strenth- poor. Pt. had difficulty consistently completing TA contractions in supine and quadruped. GAIT: Pt. has normal gait pattern without increase in symptoms. No Trendelenburg noted. STAIRS: normal. - Special Tests L/S Slump test left side: Negative L/S Slump test right side: Negative L/S Left Straight Leg Raise: Negative L/S Right Straight Leg Raise: Negative L/S Prone Instability Test: Positive Lumbar Standing: Flexion - Mechanical Response: No effect Lumbar Standing: Flexion - Symptoms During Testing: No effect Lumbar Standing: Flexion - Symptoms After Testing: No effect Lumbar Standing: Extension - Mechanical Response: No effect Lumbar Standing: Extension - Symptoms During Testing: Increases Lumbar Standing: Extension - Symptoms After Testing: No worse Lumbar Standing: Right Side Glides - Mechanical Response: No effect Lumbar Standing: Right Side [place] - Symptoms During Testing: No effect Lumbar Standing: Right Side [place] - Symptoms After Testing: No effect Lumbar Standing: Left Side [place] - Mechanical Response: No effect Lumbar Standing: Left Side [place] - Symptoms During Testing: No effect Lumbar Standing: Left Side [place] - Symptoms After Testing: No effect Lumbar Lying: Flexion - Mechanical Response: No effect Lumbar Lying: Flexion - Symptoms During Testing: No effect Lumbar Lying: Flexion - Symptoms After Testing: No effect Lumbar Lying: Extension - Mechanical Response: No effect Lumbar Lying: Extension - Symptoms During Testing: Decreases Lumbar Lying: Extension - Symptoms After Testing: No better Comments:: Negative gillettes test bilaterally for SI involvement R Hip Scour: Negative R Hip HARISH - Intraarticular Pathology: Negative R Hip FADDIR - Labrum: Negative R Hip Kiki - IT Band: Negative L Hip Scour: Negative L Hip HARISH - Intraarticular Pathology: Negative L Hip FADDIR - Labrum: Negative L Hip Trendelenberg - Glut Medius: Negative L Hip Kiki - IT Band: Negative - Goals Goal 1:: LTG: Pt. to be I with HEP for core and hip strengthening/stability. Goal Time Frame: 4-6 Weeks Goal 2:: STG: pt. to have decreased LBP to 0-2/10 with initially getting out of bed in AMs. Goal Time Frame: 2 Weeks Goal 3:: LTG: Pt. to have increased B hip and core strength to at least 5-/5 throughout. Goal Time Frame: 4-6 Weeks Goal 4:: LTG: pt. to complete all household work without increase in symptoms. Goal Time Frame: 2-4 Weeks Goal 5:: LTG: Pt. to complete working in garden and working on puzzles bend over with out increase in low back pain. Goal Time Frame: 4-6 Weeks - Rehabilitation Potential Physical Therapy Diagnosis: Pt. has signs and symptoms consistent with low back pain. She did not have any neuro signs, no marked myotomal weakness noted. Pt. did present with decreased core and hip strengthen and decreased core motor control. I would like her to have PT to work into extension as a recue manuever and progress dynamic core stability to reduce stress to lumbar spine with all lifting, twisting and household work. - Anticipated Interventions Patient/Client Instruction: Educate patient on: Condition, Plan of Care, Risk Factors, Benefits of Fitness Program For the Purpose of:: To improve decision making, To facilitate caregiver knowledge, To improve self management, To prevent re-injury, To improve ability to perform tasks related to life management Therapeutic Exercise to Include: Strength training, Power training, Endurance training, Coordination, Body mechanics, Postural training, Flexibilty training, Gait and locomotor training, Dynamic Lumbar Stabilization, Deja Exercises For the Purpose of:: To decrease pain, To increase ROM, To improve nutrient delivery to tissue, To increase oxygenation perfusion, To improve muscle performance and motor function, To improve ability to perform ADL's, To increase tolerance to activity/condition/position, To improve performance and independence with ADL's, To decrease level of supervision to perform tasks, To improve ability of physical actions for home/community/work/leisure, To improve health of tissue, To decrease soft tissue restriction Thank you for the opportunity to evaluate your patient. For Medicare and Medicare HMO plans, please review the plan of care and approve it. It will need to be FAXED BACK to us at [phone] for Medicare purposes. For Medicare only, by signing this I certify the plan of care. Please let me know if there are questions or concerns regarding this plan of care. Physician Signature: Date:
--- NOTE | 2021-04-11 10:25 | HP.PTDCSUM ---
It has been my pleasure to treat CURTIS MARIA referred by Dr. Rachel Jacinto MD, with the diagnosis of Low back pain for a total of 7 visit(s). Discharge Date: 04/11/21 Please see the following information for a summary of their discharge status. Subjective: Pt. reports being 70% better overall. She reports minimal pain in the AMs. She is being consistent with her exercises at home. Pt. reports having 2/10 pain currently, its really not bad. I am a lot better than I was. She reports only having issues with twisting wrong or doing too much vigorous activities. Lumbar spine Pain Intensity (Out of 10): 3 B PSIS Pain Intensity (Out of 10): 0 % Improvement: 70 Objective/Function: ROM: lumbar spine: flexion nil loss NE, ext min loss (tight), SB nil loss Bilat, rotation nil loss bilat. No effect with all motions. Pt. is tender at L PSIS with palpation. MMT: 5/5 throughout. Core strength fair+. GAIT: Pt. has normal gait pattern, no postural sway noted. No lateral hip sway noted. Pt. is overall doing well. Pt. reports no N/T in either LE. Pt. reports overall doing better. She is doing HEP as indicated with good results. Pt. to be DC from PT this date. Goal 1:: LTG: Pt. to be I with HEP for core and hip strengthening/stability. Goal Progress: Goal Met Goal 2:: STG: pt. to have decreased LBP to 0-2/10 with initially getting out of bed in AMs. Goal Progress: Progressing Goal 3:: LTG: Pt. to have increased B hip and core strength to at least 5-/5 throughout. Goal Progress: Goal Met Goal 4:: LTG: pt. to complete all household work without increase in symptoms. Goal Progress: Goal Met Goal 5:: LTG: Pt. to complete working in garden and working on puzzles bend over with out increase in low back pain. Goal Progress: Goal Met Plan: Pt. to be DC from PT this date. Discharge Comments: Pt. was treated initially with extension progression and progressed to core stability exercises in neutral spine. Pt. reports overall doing better. Pt. will be DC to HEP at this point in time. If there are questions or concerns regarding this patient's physical therapy, please feel free to call me at [phone]. Thank you for the referral of this patient. Sincerely, Wero Ruizos, DPT Balance/Gait/Functional tests - Balance/Special Test Scores Oswestry Low Back Score: 7
== END 2021-04-11 19:00 | disposition home or self-care (01) ==
LOC: PT 10:00
PROVIDERS: PCP Family Medicine; Referring Provider Family Medicine; Visit Provider Family Medicine
DX: M54.5 Low back pain (principal)
CPT/HCPCS: 97110; 97161; 97164

== ENCOUNTER → 2021-06-22 11:50 | Outpatient (CLI) | payer BC, SELFPAY ==
--- NOTE | 2021-06-22 11:56 | BI_ITS ---
MAMMOGRAPHY - BILATERAL SCREENING REASON FOR EXAM: Female, 45 years old. Routine annual screening examination. PERTINENT HISTORY: Non-contributory. TECHNIQUE: Digital bilateral breast bryson (3D mammographic acquisition) in the CC and MLO projections. 2-D mediolateral oblique (MLO) and craniocaudad (CC) views of both breasts were obtained. CAD: Full Field Digital Mammography with Computer Added Detection was performed. COMPARISON: Comparison is made with prior examination dated 06/05/2020 and 06/04/2019. FINDINGS: Breast Composition: The breasts are heterogeneously dense, which may obscure small masses. There are no dominant masses or suspicious calcifications. Small benign-appearing bilateral axillary lymph nodes. No other significant abnormalities are identified. There has been no significant change since the prior study. BI/SCRN MAMM (CAD)W/BRYSON BILAT IMPRESSION: Stable bilateral screening mammogram. Yearly follow-up mammogram recommended. (A) ASSESSMENT CATEGORY: BIRADS Category 2: Benign. A letter regarding these results will be sent to the patient by the facility within 30 days. Approximately 10% of breast cancers are not detected by mammography. A normal mammogram should not delay biopsy of a clinically suspicious abnormality. [id number] Electronically Signed: Narinder Hyatt MD at 12:55 EST , Service support ,
== END ==
PROVIDERS: PCP Family Medicine; Referring Provider Family Medicine; Visit Provider Family Medicine
DX: Z12.31 Encounter for screening mammogram for malignant neoplasm of breast (principal)
CPT/HCPCS: 77063; 77067

== ENCOUNTER 2021-11-06 14:17 | Outpatient (CLI) | payer BC, SELFPAY ==
[2021-11-06 18:02] LABS: Absolute Neutrophil Count 5.6 X10^3/uL (2.0-7.7); Basophil# 0.02 X10^3/uL; Basophil% 0.2 % (0-1); Eosinophils% 2.1 % (0-5); Hemoglobin 12.8 g/dL (12.0-15.0); Mean Corpuscular Hgb 29.4 pg (27.0-32.0); Mean Platelet Vol. 10.5 fl (6.2-12.0); Monocyte# 0.54 X10^3/uL; Monocyte% 5.6 % (0-10); NRBC Flagged by Analyzer 0 % (0-5); Neutrophil % 57.7 % (47-70); Platelet Count 279 K/mm3 (150-450); RBC Distribution Width CV 12.8 % (11.6-14.6); RBC Distribution Width SD 43.3 fl (35.1-43.9); Red Blood Count 4.35 M/mm3 (4.2-5.4); White Blood Count 9.7 K/mm3 (4.4-11.0)
[2021-11-06 18:04] LABS: Erythrocyte Sedimentation Rate 6 mm/hr (0-30)
[2021-11-06 18:38] LABS: ALB/GLOB Ratio 1.2 RATIO (0.9-2.4); AST(SGOT) 12 U/L (15-37); Alanine Aminotransfer ALT/SGPT 27 U/L (13-56); Albumin, Serum 3.7 g/dL (3.2-5.0); Alkaline Phosphatase 68 U/L (45-117); Anion Gap 5 (5-15); BUN 16 mg/dL (7-18); BUN/Creat Ratio 14.3 RATIO (10-20); Calcium,Total 8.5 mg/dL (8.5-10.1); Chloride 106 mmol/L (98-107); Cholesterol 159 mg/dL (200); Creatinine, Serum 1.12 mg/dL (0.55-1.02); EST Glomerular Filtration Rate 55 mL/min (>60); Est Glom Filt Rate - Afr Amer 67 mL/min (>60); Globulin 3.1 g/dL (2.2-4.2); Glucose 89 mg/dL (74-106); High Density Lipoprotein 32 mg/dL; Potassium 4.2 mmol/L (3.5-5.1); Protein, Total 6.8 g/dL (6.4-8.2); Sodium Level 136 mmol/L (136-145); Thyroid Stim Hormone (TSH) 0.96 uIU/mL (0.358-3.74); Triglycerides 148 mg/dL; Very Low Density Lipoprotein 30 mg/dL (5-40)
== END 2021-11-06 23:59 | disposition home or self-care (01) ==
LOC: MFPLAB 14:18
PROVIDERS: PCP Family Medicine; Referring Provider Family Medicine; Visit Provider Family Medicine
DX: I10 Essential (primary) hypertension (principal); E78.5 Hyperlipidemia, unspecified; R53.81 Other malaise; R53.83 Other fatigue
CPT/HCPCS: 36415; 80053; 80061; 84443; 85025; 85652

== ENCOUNTER → 2022-07-01 | Outpatient (CLI) | payer BC, SELFPAY ==
--- NOTE | 2022-07-01 09:57 | BI_ITS ---
MAMMOGRAPHY - BILATERAL SCREENING REASON FOR EXAM: Female, 46 years old. Routine annual screening examination. PERTINENT HISTORY: Non-contributory. TECHNIQUE: Digital bilateral breast bryson (3D mammographic acquisition) in the CC and MLO projections. 2-D mediolateral oblique (MLO) and craniocaudad (CC) views of both breasts were obtained. CAD: Full Field Digital Mammography with Computer Added Detection was performed. COMPARISON: Comparison is made with prior study dated 06/22/2021 and 06/05/2020. FINDINGS: Breast Composition: The breasts are heterogeneously dense, which may obscure small masses. There are no dominant masses or suspicious calcifications. Stable small benign-appearing bilateral axillary lymph nodes. No other significant abnormalities are identified. There has been no significant change since the prior study. BI/SCRN MAMM (CAD)W/BRYSON BILAT IMPRESSION: Stable bilateral screening mammogram. Yearly follow-up mammogram recommended. (A) ASSESSMENT CATEGORY: BIRADS Category 2: Benign. A letter regarding these results will be sent to the patient by the facility within 30 days. Approximately 10% of breast cancers are not detected by mammography. A normal mammogram should not delay biopsy of a clinically suspicious abnormality. [id number] Electronically Signed: Narinder Hyatt MD at 12:58 EST ,
== END | disposition home or self-care (01) ==
LOC: OPBI 09:55
PROVIDERS: PCP Family Medicine; Visit Provider Family Medicine
DX: Z12.31 Encounter for screening mammogram for malignant neoplasm of breast (principal)
CPT/HCPCS: 77063; 77067

== ENCOUNTER → 2023-02-21 | Outpatient (CLI) | payer BC, SELFPAY ==
--- NOTE | 2023-02-21 11:10 | RAD_ITS ---
STUDY: X-RAY - LUMBAR SPINE REASON FOR EXAM: Female, 47 years old. Back pain. TECHNIQUE: 4 view(s) of the lumbar spine were obtained. COMPARISON: Lumbar spine x-rays dated April 2020. FINDINGS: Normal lumbar lordosis. There is no substantial scoliosis. There is a normal alignment of the vertebrae. Stable partial lumbarization of the S1 vertebra. Intervertebral disc space narrowing at L5-S1 with osteophytes, unchanged. Normal soft tissues. RAD/L/S Spine Min 4 Views IMPRESSION: Stable mild lower lumbosacral spondylosis. Electronically Signed: Frankie Hogde MD at 13:01 EDT ,
== END | disposition home or self-care (01) ==
LOC: MTRAD 11:08
PROVIDERS: PCP Family Medicine; Referring Provider Family Medicine; Visit Provider Family Medicine
DX: M54.9 Dorsalgia, unspecified (principal)
CPT/HCPCS: 72110

== ENCOUNTER 2023-03-26 10:00 | Outpatient (RCR) | payer BC, SELFPAY | END 2023-03-26 19:00 | disposition home or self-care (01) | LOC: PT 10:00 | PROVIDERS: PCP Family Medicine; Referring Provider Family Medicine; Visit Provider Family Medicine | DX: M54.32 Sciatica, left side (principal) | CPT/HCPCS: 97035; 97110; 97161 ==

== ENCOUNTER → 2023-07-02 | Outpatient (CLI) | payer BC, SELFPAY ==
--- NOTE | 2023-07-02 10:24 | BI_ITS ---
MAMMOGRAPHY - BILATERAL SCREENING REASON FOR EXAM: Female, 47 years old. Routine annual screening examination. PERTINENT HISTORY: Non-contributory. TECHNIQUE: Digital bilateral breast bryson (3D mammographic acquisition) in the CC and MLO projections. 2-D mediolateral oblique (MLO) and craniocaudad (CC) views of both breasts were obtained. CAD: Full Field Digital Mammography with Computer Added Detection was performed. COMPARISON: Comparison is made with prior study dated number 23/03/2022 and June 22, 2021. FINDINGS: Breast Composition: The breasts are heterogeneously dense, which may obscure small masses. There is an 8.3 mm x 8.7 mm well-defined nodule in the slightly superior retroareolar region of the right breast. Correlation with ultrasound is recommended. Stable bilateral axillary lymph nodes. No other significant abnormalities are identified. BI/SCRN MAMM (CAD)W/BRYSON BILAT IMPRESSION: 8.3 mm x 8.7 mm well-defined nodular density in the slightly superior retroareolar region of the right breast. Correlation with ultrasound is recommended. ASSESSMENT CATEGORY: BIRADS Category 0: Incomplete. Need additional imaging evaluation. A letter regarding these results will be sent to the patient by the facility within 30 days. Approximately 10% of breast cancers are not detected by mammography. A normal mammogram should not delay biopsy of a clinically suspicious abnormality. [id number] Electronically Signed: Narinder Hyatt MD at 9:55 EST ,
== END | disposition home or self-care (01) ==
LOC: OPBI 10:23
PROVIDERS: PCP Family Medicine; Referring Provider Family Medicine; Visit Provider Family Medicine
DX: Z12.31 Encounter for screening mammogram for malignant neoplasm of breast (principal)
CPT/HCPCS: 77063; 77067

== ENCOUNTER → 2023-07-07 | Outpatient (CLI) | payer BC, SELFPAY ==
--- NOTE | 2023-07-07 09:24 | US_ITS ---
STUDY: ULTRASOUND BREAST - RIGHT REASON FOR EXAM: Female, 47 years old. Abnormal screening mammogram. TECHNIQUE: Axial and longitudinal images of the RIGHT breast were performed with a high resolution ultrasound transducer. # OF IMAGES: 27 COMPARISON: Comparison is made with prior mammogram dated July 02, 2023. FINDINGS: RIGHT Breast: The periareolar region was examined with ultrasound. The mammographic abnormality corresponds to a 1.2 cm x 1.2 cm x 0.7 cm cyst at the 11:00 position of the breast at 2 cm from the nipple. US/Breast Limited Unilateral IMPRESSION: The mammographic abnormality corresponds to 1.2 cm x 1.2 cm x 0.7 cm cyst at the 11:00 position of the breast at 2 cm from the nipple. ASSESSMENT CATEGORY: BIRADS Category 2: Benign. A letter regarding these results will be sent to the patient by the facility within 30 days. Electronically Signed: Narinder Hyatt MD at 14:54 EST ,
== END | disposition home or self-care (01) ==
LOC: OPUS 09:23
PROVIDERS: PCP Family Medicine; Referring Provider Family Medicine; Visit Provider Family Medicine
DX: N63.41 Unspecified lump in right breast, subareolar (principal)
CPT/HCPCS: 76642

== ENCOUNTER → 2023-07-22 | Outpatient (CLI) | payer BC, SELFPAY ==
[2023-07-22 18:02] LABS: AST(SGOT) 15 U/L (15-37); Alanine Aminotransfer ALT/SGPT 26 U/L (13-56); Anion Gap 7 (5-15); BUN 19 mg/dL (7-18); Calcium,Total 9.3 mg/dL (8.5-10.1); Chloride 103 mmol/L (98-107); Cholesterol 146 mg/dL (200); Creatinine, Serum 1.19 mg/dL (0.55-1.02); EST Glomerular Filtration Rate 51 mL/min (>60); Est Glom Filt Rate - Afr Amer 62 mL/min (>60); Glucose 78 mg/dL (74-106); High Density Lipoprotein 33 mg/dL; Potassium 4.1 mmol/L (3.5-5.1); Sodium Level 138 mmol/L (136-145); Triglycerides 168 mg/dL; Very Low Density Lipoprotein 34 mg/dL (5-40)
== END | disposition home or self-care (01) ==
PROVIDERS: PCP Family Medicine; Visit Provider Family Medicine
DX: E78.5 Hyperlipidemia, unspecified (principal); I10 Essential (primary) hypertension
CPT/HCPCS: 36415; 80048; 80061; 84450; 84460

== ENCOUNTER → 2024-07-07 | Outpatient (CLI) | payer BC, SELFPAY ==
--- NOTE | 2024-07-07 13:49 | BI_ITS ---
MAMMOGRAPHY - BILATERAL SCREENING REASON FOR EXAM: Female, 48 years old. Routine annual screening examination. PERTINENT HISTORY: Non-contributory. TECHNIQUE: Digital bilateral breast bryson (3D mammographic acquisition) in the CC and MLO projections. 2-D mediolateral oblique (MLO) and craniocaudad (CC) views of both breasts were obtained. CAD: Full Field Digital Mammography with Computer Added Detection was performed. COMPARISON: Comparison is made with prior study dated July 02, 2023 and July 01, 2000 FINDINGS: Breast Composition: The breasts are heterogeneously dense, which may obscure small masses. Persistent 1.2 cm x 1.1 cm well-defined nodule in the anterior superior retroareolar region of the right breast. This was demonstrated to be a small cyst on prior sonogram of the left breast. No other significant abnormalities are identified. There has been no significant change since the prior study. BI/SCRN MAMM (CAD)W/BRYSON BILAT IMPRESSION: Stable bilateral screening mammogram. Yearly follow-up mammogram recommended. (A) ASSESSMENT CATEGORY: BIRADS Category 2: Benign. A letter regarding these results will be sent to the patient by the facility within 30 days. Approximately 10% of breast cancers are not detected by mammography. A normal mammogram should not delay biopsy of a clinically suspicious abnormality. [id number] Electronically Signed: Narinder Hyatt MD at 14:27 EST ,
== END | disposition home or self-care (01) ==
PROVIDERS: PCP Family Medicine; Referring Provider Family Medicine; Visit Provider Family Medicine
DX: Z12.31 Encounter for screening mammogram for malignant neoplasm of breast (principal)
CPT/HCPCS: 77063; 77067

== ENCOUNTER → 2024-07-26 | Outpatient (CLI) | payer BC, SELFPAY ==
[2024-07-26 15:40] LABS: Protein, Urine (Random) 10.9 mg/dL (<11.9); Protein:Creat Ratio 107 mg/g CRE (0-200)
[2024-07-26 15:46] LABS: AST(SGOT) 13 U/L (15-37); Alanine Aminotransfer ALT/SGPT 20 U/L (13-56); Cholesterol 133 mg/dL (200); High Density Lipoprotein 44 mg/dL; Thyroid Stim Hormone (TSH) 0.907 uIU/mL (0.358-3.740); Triglycerides 45 mg/dL; Very Low Density Lipoprotein 9 mg/dL (5-40)
== END | disposition home or self-care (01) ==
PROVIDERS: PCP Family Medicine; Referring Provider Family Medicine; Visit Provider Family Medicine
DX: I10 Essential (primary) hypertension (principal); E78.5 Hyperlipidemia, unspecified
CPT/HCPCS: 36415; 80061; 82570; 84156; 84443; 84450; 84460

== ENCOUNTER 2025-01-26 09:17 | Outpatient (CLI) | payer BC, SELFPAY ==
[2025-01-26 10:33] LABS: Absolute Neutrophil Count 4.2 X10^3/uL (2.0-7.7); Basophil# 0.04 X10^3/uL; Basophil% 0.5 % (0-1); Eosinophil# 0.16 X10^3/uL; Eosinophils% 2.1 % (0-5); Hematocrit 41.1 % (37-47); Hemoglobin 13.6 g/dL (12.0-15.0); Lymphocyte % 37.1 % (19-41); Mean Corp Hgb Conc 33.1 g/dL (32-36); Mean Corpuscular Hgb 29.5 pg (27.0-32.0); Mean Corpuscular Volume 89.2 fL (81-99); Mean Platelet Vol. 10.2 fl (6.2-12.0); Monocyte# 0.35 X10^3/uL; Monocyte% 4.6 % (0-10); NRBC Flagged by Analyzer 0 % (0-5); Neutrophil # 4.17 X10^3/uL (2.7-7.7); Neutrophil % 55.4 % (47-70); Platelet Count 261 K/mm3 (150-450); RBC Distribution Width CV 13.8 % (11.6-14.6); Red Blood Count 4.61 M/mm3 (4.2-5.4); White Blood Count 7.5 K/mm3 (4.4-11.0)
[2025-01-26 11:25] LABS: ALB/GLOB Ratio 1.7 RATIO (0.9-2.4); AST(SGOT) 14 U/L (<=31); Alanine Aminotransfer ALT/SGPT 14 U/L (<=34); Albumin, Serum 4.1 g/dL (3.5-5.0); Alkaline Phosphatase 62 U/L (35-104); Anion Gap 9 (5-15); BUN 15 mg/dL (4-19); BUN/Creat Ratio 16.8 RATIO (10-20); Calcium,Total 9.1 mg/dL (7.6-11.0); Carbon Dioxide 25.3 mmol/L (21.0-32.0); Chloride 105 mmol/L (98-108); Cholesterol 144 mg/dL (<=200); Creatinine, Serum 0.92 mg/dL (0.70-1.20); EST Glomerular Filtration Rate 75 (>60); Globulin 2.4 g/dL (2.2-4.2); Glucose 88 mg/dL (70-99); High Density Lipoprotein 41 mg/dL; Low Density Lipoprotein Calc. 93 mg/dL; Potassium 4.3 mmol/L (3.3-5.1); Protein, Total 6.5 g/dL (5.9-8.4); Sodium Level 139 mmol/L (133-145); Total Bilirubin 0.69 mg/dL (0.00-1.30); Triglycerides 48 mg/dL; Very Low Density Lipoprotein 10 mg/dL (5-40)
[2025-01-26 11:30] LABS: Vitamin D,25 Hydroxy 46.7 ng/mL (30-100)
--- OUTSIDE RECORDS SUMMARY | 2025-01-26 18:31 | XMS RPT_ITS | CCD ---
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 Name Role Phone Alexey Pizarro Unavailable Unavailable PROVIDER, UNKNOWN Unavailable Unavailable Rachel Jacinto Unavailable Unavailable Alexey Pizarro Unavailable Unavailable PROVIDER, UNKNOWN Unavailable Unavailable Jolliff, Rachel S Unavailable Unavailable Jolliff, Rachel S Attending Unavailable Jolliff, Rachel S Referring Unavailable Jolliff, Rachel S Primary Care Unavailable Jolliff, Rachel S Referring Unavailable Jolliff, Rachel S Primary Care Unavailable Jolliff, Rachel S Attending Unavailable Allergies Allergy Classification Reported Allergen(s) Allergy Type Date of Onset Reaction(s) Facility (6 sources) predniSONE Drug Allergy 07-03-2019 [facility] (1 source) predniSONE Drug Allergy 07-03-2019 [facility] Repository Medications Current Medications Medication Drug Class(es) Dates Sig (Normalized) Sig (Original) acetaminophen 325 mg / HYDROcodone bitartrate 5 mg oral tablet (6 sources) Opioid Agonist Start: 07-03-2019 Hydrocodone-Acetamin ophen Active 1 EACH PO EVERY 4 HOURS NEEDED July 03, 2019 aspirin 81 mg chewable tablet (6 sources) Platelet Aggregation Inhibitor, Nonsteroidal Anti-inflammatory Drug Start: 02-23-2018 take 81 mg by mouth once daily Aspirin Active 81 MG PO DAILY@0800 30 February 22, 2018 11:00pm cholecalciferol 0.025 mg oral capsule (6 sources) Vitamin D Start: 11-09-2017 take 1000 [IU] by mouth once daily Cholecalciferol (Vitamin D3) Active 1000 UNIT PO daily November 08, 2017 11:00pm escitalopram 10 mg oral tablet (6 sources) Serotonin Reuptake Inhibitor Start: 08-21-2016 take 20 mg by mouth at bedtime Escitalopram Oxalate Active 20 MG PO AT BEDTIME August 21, 2016 12:00am ibuprofen 600 mg oral tablet (6 sources) Nonsteroidal Anti-inflammatory Drug Start: 10-29-2018 take 600 mg by mouth every six hours as needed Ibuprofen Active 600 MG PO EVERY 6 HOURS NEEDED October 28, 2018 11:00pm ketotifen 0.25 mg/ml ophthalmic solution (6 sources) Histamine-1 Receptor Inhibitor Start: 02-20-2018 take 10 mL into the eye(s) twice daily Ketotifen Fumarate (Alaway) 10 ML drops Active 1 DRP Each Eye TWICE A DAY February 19, 2018 11:00pm lisinopril 20 mg oral tablet (12 sources) Angiotensin Converting Enzyme Inhibitor Start: 09-15-2018 take 20 mg by mouth twice daily Lisinopril Active 20 MG PO TWICE A DAY September 15, 2018 1:05pm Start: 02-23-2018 End: 09-15-2018 take 20 mg by mouth once daily Lisinopril Discontinued 20 MG PO DAILY February 22, 2018 11:00pm September 15, 2018 1:05pm pravastatin sodium 40 mg oral tablet (6 sources) HMG-CoA Reductase Inhibitor Start: 07-03-2019 take 40 mg by mouth at bedtime Pravastatin Active 40 MG PO AT BEDTIME July 03, 2019 12:00am spironolactone 100 mg oral tablet (6 sources) Aldosterone Antagonist Start: 09-15-2018 take 1 tablet by mouth once daily Spironolactone (Aldactone) 100 MG tablet Active 100 MG PO DAILY September 15, 2018 12:00am ubidecarenone 100 mg oral capsule (6 sources) Start: 09-15-2018 Coenzyme Q10 (Coq-10) 100 MG capsule Active 100 MG PO AT BEDTIME September 15, 2018 12:00am Completed/Discontinued Medications Medication Drug Class(es) Dates Sig (Normalized) Sig (Original) amoxicillin 875 mg / clavulanate 125 mg oral tablet (6 sources) Penicillin-class Antibacterial Start: 11-09-2017 End: 11-19-2017 take 1 tablet by mouth every twelve hours Amoxicillin-Pot Clavulanate (Augmentin) 875-125 mg tablet Discontinued 1 TABLET PO Q12H 20 November 08, 2017 11:00pm November 18, 2017 11:05pm Desog-E.Estradiol/ E.Estradiol (6 sources) Progestin, Estrogen Start: 02-20-2018 End: 02-23-2018 take 1 tablet by mouth once daily Desog-E.Estradiol/ E.Estradiol (Azurette 28 Day Tablet) -5 tablet Discontinued 1 TABLET PO DAILY February 20, 2018 3:34pm February 23, 2018 11:03am Start: 02-20-2018 End: 02-23-2018 take 1 tablet by mouth once daily Desog-E.Estradiol/E.Estradiol (Azurette 28 Day Tablet) 21-5 tablet Discontinued 1 TABLET PO DAILY February 19, 2018 11:00pm February 23, 2018 10:03am oxyCODONE hydrochloride 5 mg oral tablet (6 sources) Opioid Agonist Start: 10-29-2018 End: 11-05-2018 take 5-10 mg by mouth every six hours as needed Oxycodone Discontinued 5 - 10 MG PO EVERY 6 HOURS NEEDED 20 02October 29, 2018 6:34am November 04, 2018 11:07pm Problems Active Problems Problem Classification Problem Date Documented Date Episodic/Chronic Acute cerebrovascular disease (6 sources) Cerebrovascular accident; Translations: [Cerebral infarction, unspecified] 10-28-2018 Chronic Disorders of lipid metabolism (2 sources) Hyperlipidemia, unspecified; Translations: [Hyperlipidemia, unspecified] Onset: 06-04-2018 Chronic Essential hypertension (3 sources) Essential (primary) hypertension; Translations: [Essential (primary) hypertension] Onset: 06-04-2018 Chronic Mood disorders (2 sources) Major depressive disorder, single episode, unspecified; Translations: [Major depressive disorder, single episode, unspecified] Onset: 06-04-2018 Other aftercare (2 sources) 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; Translations: [alf (current) use of aspirin] Onset: 05-28-2018 Episodic Other circulatory disease (2 sources) Personal history of transient ischemic attack (TIA), and cerebral infarction without residual deficits; Translations: [Prsnl hx of TIA (TIA), and cereb infrc w/o resid deficits] Onset: 06-04-2018 Episodic Other screening for suspected conditions (not mental disorders or infectious disease) (1 source) Encounter for screening mammogram for malignant neoplasm of breast; Translations: [Encounter for screening mammogram for malignant neoplasm of breast] Onset: 08-07-2024 Episodic Other skin disorders (2 sources) Acne vulgaris; Translations: [Acne vulgaris] Onset: 05-28-2018 Episodic Other skin disorders (2 sources) Other acne; Translations: [Other acne] Onset: 06-04-2018 Episodic Spondylosis; intervertebral disc disorders; other back problems (2 sources) Radiculopathy, cervical region; Translations: [Radiculopathy, cervical region] Onset: 06-04-2018 Episodic Past or Other Problems Problem Classification Problem Date Documented Da te Episodic/Chronic Unclassified (6 sources) Intermittent left arm numbness/weakness 05-08-2022 Results Test Name Value Interpretation Reference Range Facility AST(SGOT)on 07-26-2024 AST [Catalytic activity/Vol] 13 U/L Low 15-37 [facility] Comment on above: Performed By: #### L 501.4100, L500.4100, L501.9520, L501.4405, L501.0900 #### [facility] [address] [place], [address] Alanine Aminotransferas (SGP T)on 07-26-2024 ALT [Catalytic activity/Vol] 20 U/L Normal 13-56 [facility] Comment on above: Performed By: #### L 501.4100, L500.4100, L501.9520, L501.4405, L501.0900 #### [facility] [address] [place], [place], [id number] Lipid Profileon 07-26-2024 Cholesterol [Mass/Vol] 133 mg/dL Normal 200 [facility] Comment on above: Result Comment: <200 mg/dL Desirable 200-240 mg/dL Borderline >240 mg/dL High Risk Performed By: #### L 501.4100, L500.4100, L501.9520, L501.4405, L501.0900 #### [facility] [address] [place], [address] Cholesterol in HDL [Mass/Vol] 44 mg/dL Normal [facility] Comment on above: Result Comment: The drugs N-Acetylcysteine and Metamizole may falsely depress this assay. Reference Range HDL <40 mg/dL Low HDL Cholesterol HDL >or= 60 mg/dL High HDL Cholesterol Performed By: #### L 501.4100, L500.4100, L501.9520, L501.4405, L501.0900 #### [facility] [address] [place], [address] Cholesterol in LDL [Mass/Vol] 80 mg/dL Normal 0-130 [facility] Comment on above: Performed By: #### L 501.4100, L500.4100, L501.9520, L501.4405, L501.0900 #### [facility] [address] [place], [address] Cholesterol in VLDL [Mass/Vol] 9 mg/dL Normal 5-40 [facility] Comment on above: Performed By: #### L 501.4100, L500.4100, L501.9520, L501.4405, L501.0900 #### [facility] [address] [place], [address] Triglyceride [Mass/Vol] 45 mg/dL Normal [facility] Comment on above: Result Comment: The drugs N-Acetylcysteine and Metamizole may falsely depress this assay. Serum Triglycerides Reference Interval Normal <150 mg/dL Borderline high 150 - 199 mg/dL High 200 - 499 mg/dL Very High > or = 500 mg/dL Performed By: #### L 501.4100, L500.4100, L501.9520, L501.4405, L501.0900 #### [facility] [address] [place], [address] Protein+Creatinine Ratio,Uri neon 07-26-2024 PROT:CRE RATIO 107 mg/g CRE Normal 0-200 [facility] Comment on above: Performed By: #### L 501.4100, L500.4100, L501.9520, L501.4405, L501.0900 #### [facility] [address] [place], [address] Protein (U) [Mass/Vol] 10.9 mg/dL Normal <11.9 [facility] Comment on above: Performed By: #### L 501.4100, L500.4100, L501.9520, L501.4405, L501.0900 #### [facility] [address] [place], [address] UR CREAT 102.00 mg/dL Normal NO RANGE EST. [facility] Comment on above: Performed By: #### L 501.4100, L500.4100, L501.9520, L501.4405, L501.0900 #### [facility] [address] [place], [address] Thyroid Stim Hormone (TSH)on 07-26-2024 TSH 0.907 uIU/mL Normal 0.358-3.740 [facility] Comment on above: Performed By: #### L 501.4100, L500.4100, L501.9520, L501.4405, L501.0900 #### [facility] [address] [place], [address] SCRN MAMM (CAD)W/BRYSON BILATo n 07-07-2024 SCRN MAMM (CAD)W/BRYSON BILAT [facility] [address] [place] [address] SCRN MAMM (CAD)W/BRYSON BILAT MR#: [id number] Acct: [id number] Name: CURTIS MARIA Rep #: [id number] : 1975 F 48 From: Narinder perry MD PCP: Dr. Rachel Jacinto MD Status: [facility] Study: SCRN MAMM (CAD)W/BRYSON BILAT Date of Exam: 11/25 Exam# [id number] Ordering Dr: Rachel Jacinto MD [id number] MAMMOGRAPHY - BILATERAL SCREENING REASON FOR EXAM: Female, 48 years old. Routine annual screening examination. PERTINENT HISTORY: Non-contributory. TECHNIQUE: Digital bilateral breast bryson (3D mammographic acquisition) in the CC and MLO projections. 2-D mediolateral oblique (MLO) and craniocaudad (CC) views of both breasts were obtained. CAD: Full Field Digital Mammography with Computer Added Detection was performed. COMPARISON: Comparison is made with prior study dated July 02, 2023 and July 01, 2000 FINDINGS: Breast Composition: The breasts are heterogeneously dense, which may obscure small masses. Persistent 1.2 cm x 1.1 cm well-defined nodule in the anterior superior retroareolar region of the right breast. This was demonstrated to be a small cyst on prior sonogram of the left breast. No other significant abnormalities are identified. There has been no significant change since the prior study. BI/SCRN MAMM (CAD)W/BRYSON BILAT IMPRESSION: Stable bilateral screening mammogram. Yearly follow-up mammogram recommended. (A) ASSESSMENT CATEGORY: BIRADS Category 2: Benign. A letter regarding these results will be sent to the patient by the facility within 30 days. Approximately 10% of breast cancers are not detected by mammography. A normal mammogram should not delay biopsy of a clinically suspicious abnormality. [id number] Electronically Signed: Narinder Hyatt MD at 14:27 EST , CC: Dr. Rachel Jacinto MD Electronics Worker: Signed Normal [facility] Basophil percentageOrdered B y: Rachel Jacinto on 07-22-2023 Chloride [Moles/Vol] 103 mmol/L 98-107 [facility] Cholesterol [Mass/Vol] 146 mg/dL <200 [facility] Comment on above: <200 mg/dL Desirable 200-240 mg/dL Borderline >240 mg/dL High Risk Glucose [Mass/Vol] 78 mg/dL 74-106 [facility] Potassium [Moles/Vol] 4.1 mmol/L 3.5-5.1 [facility] Sodium [Moles/Vol] 138 mmol/L 136-145 [facility] Triglyceride [Mass/Vol] 168 mg/dL <199 [facility] Comment on above: The drugs N-Acetylcy steine and Metamizole may falsely depress this assay.Serum Triglycerides Reference Interval Normal <150 mg/dL Borderline high 150 - 199 mg/dL High 200 - 499 mg/dL Very High > or = 500 mg/dL Laboratory - Chemistry and C hemistry - challengeOrdered By: Rachel Jacinto on 07-22-2023 ALT [Catalytic activity/Vol] 26 U/L 13-56 [facility] CO2 [Moles/Vol] 28.0 mmol/L 21.0-32.0 [facility] Urea nitrogen/Creatinine [Mass ratio] 16.0 mg/mg 10-20 [facility] No Panel InformationOrdered By: Rachel Jacinto on 07-22-2023 Estimated GFR (MDRD) Amer 62 mL/min >60 [facility] Comment on above: GFR Calc Estimated GFR (MDRD) Non-Af Amer 51 mL/min >60 [facility] Comment on above: Non- GFR Calc Serum or plasma calcium jose guadalupe urement (mass/volume)Ordered By: Rachel Jacinto on 07-22-2023 Calcium [Mass/Vol] 9.3 mg/dL 8.5-10.1 [facility] Serum or plasma cholesterol in HDL measurement (mass/volume)Ordered By: Rachel Jacinto on 07-22-2023 Cholesterol in HDL [Mass/Vol] 33 mg/dL >40 [facility] Comment on above: The drugs N-Acetylcy steine and Metamizole may falsely depress this assay. Reference Range HDL <40 mg/dL Low HDL Cholesterol HDL >or= 60 mg/dL High HDL Cholesterol Serum or plasma cholesterol in VLDL measurement (mass/volume)Ordered By: Rachel Jacinto on 07-22-2023 Cholesterol in VLDL [Mass/Vol] 34 mg/dL 5-40 [facility] Serum or plasma creatinine m easurement (mass/volume)Ordered By: Rachel Jacinto on 07-22-2023 Creatinine [Mass/Vol] 1.19 mg/dL 0.55-1.02 [facility] Comment on above: The validity of the calculated GFR & GFRAA in patients over 70 years has not been determined. Clinical correlation is essential. Serum or plasma low density lipoprotein (LDL) cholesterol measurement (mass/volume)Ordered By: Rachel Jacinto on 07-22-2023 Cholesterol in LDL [Mass/Vol] 79 mg/dL 0-130 [facility] Serum or plasma urea nitroge n measurement (mass/volume)Ordered By: Rachel Jacinto on 07-22-2023 Urea nitrogen [Mass/Vol] 19 mg/dL 7-18 [facility] Thin prep Papanicolaou smear with manual screeningOrdered By: Rachel Jacinto on 07-22-2023 Thin prep Papanicolaou smear with manual screening 15 U/L 15-37 [facility] Thin prep Papanicolaou smear with manual screening 7 5-15 [facility] Absolute lymphocyte counton 11-06-2021 Lymphocytes Auto (Unsp spec) [#/Vol] 3.30 10*3/uL 0.83-4.51 [facility] Work Phone: Basophil percentageon 2021 Basophils/100 WBC (Bld) 0.2 % 0-1 [facility] Work Phone: Bilirubin [Mass/Vol] 0.60 mg/dL 0.20-1.00 [facility] Work Phone: Comment on above: For patients on eltr ombopag therapy, use of Dimension Stuart TBIL is not recommended. Chloride [Moles/Vol] 106 mmol/L 98-107 [facility] Work Phone: Cholesterol [Mass/Vol] 159 mg/dL <200 [facility] Work Phone: Comment on above: <200 mg/dL Desirable 200-240 mg/dL Borderline >240 mg/dL High Risk Eosinophils/100 WBC (Bld) 2.1 % 0-5 [facility] Work Phone: Glucose [Mass/Vol] 89 mg/dL 74-106 [facility] Work Phone: Neutrophils (Bld) [#/Vol] 5.6 10*3/uL 2.0-7.7 [facility] Work Phone: Neutrophils/100 WBC (Bld) 57.7 % 47-70 [facility] Work Phone: Potassium [Moles/Vol] 4.2 mmol/L 3.5-5.1 [facility] Work Phone: Protein [Mass/Vol] 6.8 g/dL 6.4-8.2 [facility] Work Phone: Sodium [Moles/Vol] 136 mmol/L 136-145 [facility] Work Phone: Triglyceride [Mass/Vol] 148 mg/dL [facility] Work Phone: Comment on above: The drugs N-Acetylcy steine and Metamizole may falsely depress this assay.Serum Triglycerides Reference Interval Normal <150 mg/dL Borderline high 150 - 199 mg/dL High 200 - 499 mg/dL Very High > or = 500 mg/dL WBC (Bld) [#/Vol] 9.7 10*3/uL 4.4-11.0 [facility] Work Phone: Blood erythrocytes count (nu mber/volume)on 11-06-2021 RBC (Bld) [#/Vol] 4.35 10*6/uL 4.2-5.4 [facility] Work Phone: Blood hemoglobin measurement (mass/volume)on 11-06-2021 Hemoglobin (Bld) [Mass/Vol] 12.8 g/dL 12.0-15.0 [facility] Work Phone: Blood lymphocytes/100 leukoc yteson 11-06-2021 Lymphocytes/100 WBC (Bld) 34.0 % 19-41 [facility] Work Phone: Blood monocytes/100 leukocyt eson 11-06-2021 Monocytes/100 WBC (Bld) 5.6 % 0-10 [facility] Work Phone: Blood platelet mean volumeon 11-06-2021 Platelet mean volume (Bld) [Entitic vol] 10.5 fL 6.2-12.0 [facility] Work Phone: Determination of erythrocyte mean corpuscular volume (MCV)on 11-06-2021 MCV (RBC) [Entitic vol] 92.0 fL 81-99 [facility] Work Phone: Erythrocyte sedimentation ra bola 11-06-2021 ESR (Bld) [Velocity] 6 mm/h 0-30 [facility] Work Phone: Hematocrit Auto (Bld) [Volum e fraction]on 11-06-2021 Hematocrit (Bld) [Volume fraction] 40.0 % 37-47 [facility] Work Phone: Laboratory - Chemistry and C hemistry - challengeon 11-06-2021 ALP [Catalytic activity/Vol] 68 U/L 45-117 [facility] Work Phone: ALT [Catalytic activity/Vol] 27 U/L 13-56 [facility] Work Phone: CO2 [Moles/Vol] 25.0 mmol/L 21.0-32.0 [facility] Work Phone: Globulin (S) [Mass/Vol] 3.1 g/dL 2.2-4.2 [facility] Work Phone: Urea nitrogen/Creatinine [Mass ratio] 14.3 mg/mg 10-20 [facility] Work Phone: Laboratory - Hematology and Cell countson 11-06-2021 Erythrocyte distribution width (RBC) [Entitic vol] 43.3 fL 35.1-43.9 [facility] Work Phone: [phone] Erythrocyte distribution width (RBC) [Ratio] 12.8 % 11.6-14.6 [facility] Work Phone: Immature granulocytes/100 WBC (Bld) 0.400 % 0.0-0.9 [facility] Work Phone: [phone] Comment on above: IG% - Immature Granu locytes (promyelocytes, myelocytes and metamyelocytes) > 1% indicates that a LEFT SHIFT is Present. MCH (RBC) [Entitic mass] 29.4 pg 27.0-32.0 [facility] Work Phone: Nucleated RBC/100 WBC (Bld) [Ratio] 0 % 0-5 [facility] Work Phone: MCHC Auto (RBC) [Mass/Vol]on 11-06-2021 MCHC (RBC) [Mass/Vol] 32.0 g/dL 32-36 [facility] Work Phone: No Panel Informationon 11-06 Estimated GFR (MDRD) Amer 67 mL/min >60 [facility] Work Phone: Comment on above: GFR Calc Estimated GFR (MDRD) Non-Af Amer 55 mL/min >60 [facility] Work Phone: Comment on above: Non- GFR Calc Thyroid Stimulating Hormone (TSH) 0.96 uIU/mL 0.358-3.74 [facility] Work Phone: Platelets bldon 11-06-2021 Platelets (Bld) [#/Vol] 279 10*3/uL 150-450 [facility] Work Phone: Serum or plasma albumin jose guadalupe urement (mass/volume)on 11-06-2021 Albumin [Mass/Vol] 3.7 g/dL 3.2-5.0 [facility] Work Phone: Serum or plasma albumin/glob ulin mass ratioon 11-06-2021 Albumin/Globulin [Mass ratio] 1.2 {ratio} 0.9-2.4 [facility] Work Phone: Serum or plasma calcium jose guadalupe urement (mass/volume)on 11-06-2021 Calcium [Mass/Vol] 8.5 mg/dL 8.5-10.1 [facility] Work Phone: Serum or plasma cholesterol in HDL measurement (mass/volume)on 11-06-2021 Cholesterol in HDL [Mass/Vol] 32 mg/dL [facility] Work Phone: Comment on above: The drugs N-Acetylcy steine and Metamizole may falsely depress this assay. Reference Range HDL <40 mg/dL Low HDL Cholesterol HDL >or= 60 mg/dL High HDL Cholesterol Serum or plasma cholesterol in VLDL measurement (mass/volume)on 11-06-2021 Cholesterol in VLDL [Mass/Vol] 30 mg/dL 5-40 [facility] Work Phone: Serum or plasma creatinine m easurement (mass/volume)on 11-06-2021 Creatinine [Mass/Vol] 1.12 mg/dL 0.55-1.02 [facility] Work Phone: Comment on above: The validity of the calculated GFR & GFRAA in patients over 70 years has not been determined. Clinical correlation is essential. Serum or plasma low density lipoprotein (LDL) cholesterol measurement (mass/volume)on 11-06-2021 Cholesterol in LDL [Mass/Vol] 97 mg/dL 0-130 [facility] Work Phone: Serum or plasma urea nitroge n measurement (mass/volume)on 11-06-2021 Urea nitrogen [Mass/Vol] 16 mg/dL 7-18 [facility] Work Phone: Thin prep Papanicolaou smear with manual screeningon 11-06-2021 Thin prep Papanicolaou smear with manual screening 12 U/L 15-37 [facility] Work Phone: Thin prep Papanicolaou smear with manual screening 5 5-15 [facility] Work Phone: Op Noteon 06-12-2018 Op Note PATIENT: RAMU MARIAICAL RECORD #: [id number] DATE: 06/04/2018SURGERY DATE: 06/04/2018ACCOUNT #: [id number] OF : 1975AGE: 42ADMITTING PHYSICIAN: Alexey Pizarro MDATTENDING PHYSICIAN: Alexey Pizarro MDDICTATING PHYSICIAN: Alexey Pizarro MD OPERATIVE RECORDProcedure: C5-C6 ANTERIOR CERVICAL DECOMPRESSION AND ARTIFICIAL DISKPLACEMENT.Preoperative Diagnosis: Cervical radiculopathy.Postoperativ e Diagnosis: Cervical radiculopathy.Anesthesia: General endotracheal.Truck Driver Salesperson: Marilynn Moncada C.N.P.Estimated Blood Loss: Minimal.Complications: None.Indications for Procedure: The patient is a 42-year-old female whopresented with neck and arm pain. MRI showed a C5-C6 disk herniation.Risks and benefits of anterior decompression and artificial diskplacement were discussed with the patient. She wished to proceed.Description of Procedure: The patient was brought to the operatingroom. General endotracheal anesthesia was induced. She was lyingsupine on operating table. Her head rested on a donut. Her arms weretucked and padded at her side appropriately. Shoulders were gentlytaped down to allow better visualization of the cervical spine viaC-arm. C-arm was brought into field to approximate the C5-C6 level.This was marked with surgical marker and she was prepped and draped inthe normal sterile fashion. After appropriate time-out, identifyingthe patient, the level of surgery, 0.5% Marcaine with epinephrine wasinstilled to future incision. Skin incision was made to the level ofplatysma. Supraplatysmal dissection was carried out. The platysmawas opened vertically near the midline. The anterior border of thesternocleidomastoid was identified. The carotid artery was identifiedand kept lateral in exposure. The anterior cervical spine wasreached. A spinal needle was placed in the disk space and a C-armshot taken to identify, it was the C5-C6 level. This was marked withalphonso Villa. The longus colli muscles were cleaned off the inferiorportion of C5, superior portion of C6. Retractors were put in place.The AP C-arm was brought into field and the midline on C5 and C6 wasconfirmed and then [place] pins were placed parallel on the midline tothe disk space at each level right each vertebral body. Gentledistraction placed was placed on them. Then, the diskectomy wascarried out under the microscope, pituitary 1 and 2 mm Kerrisons andthe up-biting curette. The PLL was reached and resected across thespan of the disk space. After this, the endplate was prepared with arasp and ring curette and then a trial implant was used to get thecorrect size of the implant and then the real implant was placed underlive lateral fluoro. Wound was in good position. It was removed fromthe punchboard inserter and the wound was copiously irrigated out. Theretractors were removed and the wound allowed to sit for severalminutes to confirm there was good hemostasis. Then, the platysma wasclosed with interrupted 3-0 Vicryl sutures followed by subcuticularinterrupted 3-0 Vicryl sutures with Mastisol and Steri-Strips on theskin. Sterile dressing was placed. She was extubated and taken torecovery room in stable fashion.Diskriter Job ID: [id number] Pizarro, MARSHAOD:06/12/2018 08:09 A PARIS/JuanOT:06/12/2018 08:49 AJob Number: [id number] Number: [id number]: Alexey Pizarro MD [facility] Neurosurgery Spine [address] [facility] [address] Normal [facility] Basic Metabolic Panelon 11-0 Calcium mass conc 9.2 mg/dL Normal 8.4-10.4 [facility] Comment on above: Performed By: #### H EMOG, APTT, PT, BMP3M ####[id number] [place], [place] Glucose mass conc 97 mg/dL Normal 70-100 [facility] Comment on above: Performed By: #### H EMOG, APTT, PT, BMP3M ####[id number] [place] [address] Anion gap 3 molar conc 7 Normal [facility] Comment on above: Performed By: #### H EMOG, APTT, PT, BMP3M ####[id number] [place] [address] CO2 molar conc 28 mmol/L Normal 22-30 [facility] Comment on above: Performed By: #### H EMOG, APTT, PT, BMP3M ####[id number] [place] [address] Creatinine mass conc 0.99 mg/dL Normal 0.52-1.25 [facility] Comment on above: Performed By: #### H EMOG, APTT, PT, BMP3M ####[facility] [employer] [id number] [place] [address] GFR/1.73 sq M predicted among blacks MDRD vol rate/area (S/P/Bld) mL/min/{1.73_m2} Normal >60 [facility] Comment on above: Performed By: #### H EMOG, APTT, PT, BMP3M ####[facility] [employer] [id number] [place] [address] GFR/1.73 sq M predicted among non-blacks MDRD vol rate/area (S/P/Bld) mL/min/{1.73_m2} Normal >60 [facility] Comment on above: Result Comment: Sour ce- MDRD equation with creatinine calibration to IDMS(NKDEP) eGFR not recommended for drug dose adjustment Performed By: #### H EMOG, APTT, PT, BMP3M ####[facility] [employer] [id number] [place] [address] Urea nitrogen mass conc 18 mg/dL Normal 7-20 [facility] Comment on above: Performed By: #### H EMOG, APTT, PT, BMP3M ####[facility] [employer] [id number] [place] [address] Chloride molar conc 104 mmol/L Normal 98-107 [facility] Comment on above: Performed By: #### H EMOG, APTT, PT, BMP3M ####[facility] [employer] [id number] [place] [address] Potassium molar conc 4.5 mmol/L Normal 3.5-5.1 [facility] Comment on above: Performed By: #### H EMOG, APTT, PT, BMP3M ####[facility] [employer] [id number] [place] [address] Sodium molar conc 139 mmol/L Normal 137-145 [facility] Comment on above: Performed By: #### H EMOG, APTT, PT, BMP3M ####[address] Hemogram w/ Autodiffon 06-06 Abs Baso Cnt 0.0 10*3/uL Normal 0.0-0.2 [facility] Comment on above: Performed By: #### H EMOG, APTT, PT, BMP3M ####[address] Abs Neutrophile Cnt 8.2 10*3/uL High 1.8-7.0 [facility] Comment on above: Performed By: #### H EMOG, APTT, PT, BMP3M ####[address] Basophils/100 WBC Auto (Bld) 0.3 % Normal 0.0-2.0 [facility] Comment on above: Performed By: #### H EMOG, APTT, PT, BMP3M ####[address] Eosinophils Auto #/vol (Bld) 0.0 10*3/uL Normal 0.0-0.5 [facility] Comment on above: Performed By: #### H EMOG, APTT, PT, BMP3M ####[address] Eosinophils/100 WBC Auto (Bld) 0.2 % Low 1.0-6.0 [facility] Comment on above: Performed By: #### H EMOG, APTT, PT, BMP3M ####[address] Erythrocyte distribution width Auto Ratio (RBC) 14.1 % Normal 11.5-14.5 [facility] Comment on above: Performed By: #### H EMOG, APTT, PT, BMP3M ####[address] Granulocytes/100 WBC (Bld) 64.9 % Normal 40.0-80.0 [facility] Comment on above: Performed By: #### H EMOG, APTT, PT, BMP3M ####[address] Hematocrit Auto Volume Fraction (Bld) 36.1 % Normal 35.0-47.0 [facility] Comment on above: Performed By: #### H EMOG, APTT, PT, BMP3M ####[address] Hemoglobin mass conc (Bld) 11.8 g/dL Normal 11.7-16.0 [facility] Comment on above: Performed By: #### H EMOG, APTT, PT, BMP3M ####[address] Lymphocytes Auto #/vol (Bld) 3.8 10*3/uL Normal 1.0-4.3 [facility] Comment on above: Performed By: #### H EMOG, APTT, PT, BMP3M ####[address] Lymphocytes/100 WBC Auto (Bld) 30.3 % Normal 20.0-40.0 [facility] Comment on above: Performed By: #### H EMOG, APTT, PT, BMP3M ####[address] MCH Auto Entitic mass (RBC) 28.2 pg Normal 26.0-34.0 [facility] Comment on above: Performed By: #### H EMOG, APTT, PT, BMP3M ####[address] MCHC Auto mass conc (RBC) 32.6 % Normal 32.0-36.0 [facility] Comment on above: Performed By: #### H EMOG, APTT, PT, BMP3M ####[address] MCV Auto Entitic volume (RBC) 86.3 fL Normal 79.0-98.0 [facility] Comment on above: Performed By: #### H EMOG, APTT, PT, BMP3M ####[id number] [place], [place] Monocytes Auto #/vol (Bld) 0.5 10*3/uL Normal 0.0-0.8 [facility] Comment on above: Performed By: #### H EMOG, APTT, PT, BMP3M ####[address] Monocytes/100 WBC Auto (Bld) 4.3 % Normal 2.0-10.0 [facility] Comment on above: Performed By: #### H EMOG, APTT, PT, BMP3M ####[address] Platelet mean volume Auto Entitic volume (Bld) 7.7 fL Normal 7.4-10.4 [facility] Comment on above: Performed By: #### H EMOG, APTT, PT, BMP3M ####[address] Platelets Auto #/vol (Bld) 274 10*3/uL Normal 140-440 [facility] Comment on above: Performed By: #### H EMOG, APTT, PT, BMP3M ####[address] RBC Auto #/vol (Bld) 4.18 10*6/uL Normal 3.80-5.20 [facility] Comment on above: Performed By: #### H EMOG, APTT, PT, BMP3M ####[address] WBC Auto #/vol (Bld) 12.6 10*3/uL High 3.6-10.7 [facility] Comment on above: Performed By: #### H EMOG, APTT, PT, BMP3M ####[address] Basic Metabolic Panelon 11-0 -2017 Anion gap 3 molar conc 5 Normal [facility] Comment on above: Performed By: #### H EMOG, APTT, PT, BMP3M ####[id number] [place] [address] Calcium mass conc 9.5 mg/dL Normal 8.4-10.4 [facility] Comment on above: Performed By: #### H EMOG, APTT, PT, BMP3M ####[address] [place] [address] CO2 molar conc 28 mmol/L Normal 22-30 [facility] Comment on above: Performed By: #### H EMOG, APTT, PT, BMP3M ####[address] [place] [address] Glucose mass conc 102 mg/dL High 70-100 [facility] Comment on above: Performed By: #### H EMOG, APTT, PT, BMP3M ####[address] [place] [address] Urea nitrogen mass conc 14 mg/dL Normal 7-20 [facility] Comment on above: Performed By: #### H EMOG, APTT, PT, BMP3M ####[address] [place] [address] Creatinine mass conc 0.94 mg/dL Normal 0.52-1.25 [facility] Comment on above: Performed By: #### H EMOG, APTT, PT, BMP3M ####[facility] [employer] [id number] [place] [address] GFR/1.73 sq M predicted among blacks MDRD vol rate/area (S/P/Bld) mL/min/{1.73_m2} Normal >60 [facility] Comment on above: Performed By: #### H EMOG, APTT, PT, BMP3M ####[facility] [employer] [id number] [place] [address] GFR/1.73 sq M predicted among non-blacks MDRD vol rate/area (S/P/Bld) mL/min/{1.73_m2} Normal >60 [facility] Comment on above: Result Comment: Sour ce- MDRD equation with creatinine calibration to IDMS(NKDEP) eGFR not recommended for drug dose adjustment Performed By: #### H EMOG, APTT, PT, BMP3M ####[address] Chloride molar conc 104 mmol/L Normal 98-107 [facility] Comment on above: Performed By: #### H EMOG, APTT, PT, BMP3M ####[address] Potassium molar conc 4.8 mmol/L Normal 3.5-5.1 [facility] Comment on above: Performed By: #### H EMOG, APTT, PT, BMP3M ####[address] Sodium molar conc 137 mmol/L Normal 137-145 [facility] Comment on above: Performed By: #### H EMOG, APTT, PT, BMP3M ####[address] Hemogram w/ Autodiffon 06-05 Abs Baso Cnt 0.0 10*3/uL Normal 0.0-0.2 [facility] Comment on above: Performed By: #### H EMOG, APTT, PT, BMP3M ####[address] Abs Neutrophile Cnt 14.6 10*3/uL High 1.8-7.0 [facility] Comment on above: Performed By: #### H EMOG, APTT, PT, BMP3M ####[address] Basophils/100 WBC Auto (Bld) 0.2 % Normal 0.0-2.0 [facility] Comment on above: Performed By: #### H EMOG, APTT, PT, BMP3M ####[address] Eosinophils Auto #/vol (Bld) 0.0 10*3/uL Normal 0.0-0.5 [facility] Comment on above: Performed By: #### H EMOG, APTT, PT, BMP3M ####[address] Eosinophils/100 WBC Auto (Bld) 0.0 % Low 1.0-6.0 [facility] Comment on above: Performed By: #### H EMOG, APTT, PT, BMP3M ####[address] Erythrocyte distribution width Auto Ratio (RBC) 14.0 % Normal 11.5-14.5 [facility] Comment on above: Performed By: #### H EMOG, APTT, PT, BMP3M ####[address] Granulocytes/100 WBC (Bld) 78.6 % Normal 40.0-80.0 [facility] Comment on above: Performed By: #### H EMOG, APTT, PT, BMP3M ####[address] Hematocrit Auto Volume Fraction (Bld) 36.1 % Normal 35.0-47.0 [facility] Comment on above: Performed By: #### H EMOG, APTT, PT, BMP3M ####[address] Hemoglobin mass conc (Bld) 11.8 g/dL Normal 11.7-16.0 [facility] Comment on above: Performed By: #### H EMOG, APTT, PT, BMP3M ####[address] Lymphocytes Auto #/vol (Bld) 3.0 10*3/uL Normal 1.0-4.3 [facility] Comment on above: Performed By: #### H EMOG, APTT, PT, BMP3M ####[address] Lymphocytes/100 WBC Auto (Bld) 16.0 % Low 20.0-40.0 [facility] Comment on above: Performed By: #### H EMOG, APTT, PT, BMP3M ####[address] MCH Auto Entitic mass (RBC) 28.3 pg Normal 26.0-34.0 [facility] Comment on above: Performed By: #### H EMOG, APTT, PT, BMP3M ####[address] MCHC Auto mass conc (RBC) 32.8 % Normal 32.0-36.0 [facility] Comment on above: Performed By: #### H EMOG, APTT, PT, BMP3M ####[address] MCV Auto Entitic volume (RBC) 86.2 fL Normal 79.0-98.0 [facility] Comment on above: Performed By: #### H EMOG, APTT, PT, BMP3M ####[address] Monocytes Auto #/vol (Bld) 1.0 10*3/uL High 0.0-0.8 [facility] Comment on above: Performed By: #### H EMOG, APTT, PT, BMP3M ####[address] Monocytes/100 WBC Auto (Bld) 5.2 % Normal 2.0-10.0 [facility] Comment on above: Performed By: #### H EMOG, APTT, PT, BMP3M ####[address] Platelet mean volume Auto Entitic volume (Bld) 8.2 fL Normal 7.4-10.4 [facility] Comment on above: Performed By: #### H EMOG, APTT, PT, BMP3M ####[address] Platelets Auto #/vol (Bld) 306 10*3/uL Normal 140-440 [facility] Comment on above: Performed By: #### H EMOG, APTT, PT, BMP3M ####[id number] [place], [place] RBC Auto #/vol (Bld) 4.19 10*6/uL Normal 3.80-5.20 [facility] Comment on above: Performed By: #### H EMOG, APTT, PT, BMP3M ####[id number] [place], [place] WBC Auto #/vol (Bld) 18.6 10*3/uL High 3.6-10.7 [facility] Comment on above: Performed By: #### H EMOG, APTT, PT, BMP3M ####[address] Urinalysis,Macroon 8 Appearance Clear Normal Clear [facility] Comment on above: Performed By: #### H EMOG, APTT, PT, BMP3M ####[address] Color Yellow Normal Lt. Yellow [facility] Comment on above: Performed By: #### H EMOG, APTT, PT, BMP3M ####[address] Bilirubin,Ur Negative Normal Negative [facility] Comment on above: Performed By: #### H EMOG, APTT, PT, BMP3M ####[address] Glucose Ql (U) NORM Normal Negative [facility] Comment on above: Performed By: #### H EMOG, APTT, PT, BMP3M ####[facility] [employer] [address] Ketone,Urine Negative Normal Negative [facility] Comment on above: Performed By: #### H EMOG, APTT, PT, BMP3M ####[address] Leukocytes Negative Normal Negative [facility] Comment on above: Performed By: #### H EMOG, APTT, PT, BMP3M ####[id number] [facility] [facility] [place] Nitrites Negative Normal Negative [facility] Comment on above: Performed By: #### H EMOG, APTT, PT, BMP3M ####[address] [place] [place] Occult Blood,Ur Negative Normal Negative [facility] Comment on above: Performed By: #### H EMOG, APTT, PT, BMP3M ####[address] [place] [place] pH Test strip (U) 7.0 Normal 5.0-8.0 [facility] Comment on above: Performed By: #### H EMOG, APTT, PT, BMP3M ####[address] [place], [place] Specific [place],Urine 1.005 Normal 1.005-1.030 [facility] Comment on above: Performed By: #### H EMOG, APTT, PT, BMP3M ####[id number] [facility] [place] Total Protein,Urine Negative Normal Negative [facility] Comment on above: Performed By: #### H EMOG, APTT, PT, BMP3M ####[address] [facility] [place] Urobilinogen NORM Normal 0-1 [facility] Comment on above: Performed By: #### H EMOG, APTT, PT, BMP3M ####[address] [place] [address] Vit D 25-OH, Totalon 018 Vit D 25-OH, Total 46 ng/mL Normal 30-100 [facility] Comment on above: Result Comment: Ther apy is based on measurement of Total 25- OHD with thefollowing classification levels:Less than 20 ng/mL: Indicative of Vit D atttdkitxb05-16 ng/mL: Suggests Vit D insufficiencyOptimal: Greater than or equal to 30 ng/mLTest performed by [employer] Competitive Immunoassay,measuring Total Vitamin D, not individual fractions. Performed By: #### H EMOG, APTT, PT, BMP3M ####[id number] [place], [place] Comp Metabolic Panelon 06-04 ALP enzyme act/vol 67 U/L Normal 38-126 [facility] Comment on above: Performed By: #### C MP3, MG3, PHOS3, HEMDF, PT ####[id number] [place], [place] ALT enzyme act/vol 35 U/L Normal 13-69 [facility] Comment on above: Performed By: #### C MP3, MG3, PHOS3, HEMDF, PT ####[id number] [place], [place] Anion gap 3 molar conc 11 Normal [facility] Comment on above: Performed By: #### C MP3, MG3, PHOS3, HEMDF, PT ####[facility] [employer] [id number] [place], [place] AST enzyme act/vol 22 U/L Normal 15-46 [facility] Comment on above: Performed By: #### C MP3, MG3, PHOS3, HEMDF, PT ####[facility] [employer] [id number] [place], [place] Bilirubin mass conc 0.4 mg/dL Normal 0.2-1.3 [facility] Comment on above: Performed By: #### C MP3, MG3, PHOS3, HEMDF, PT ####[facility] [employer] [id number] [place], [place] Calcium mass conc 8.3 mg/dL Low 8.4-10.4 [facility] Comment on above: Performed By: #### C MP3, MG3, PHOS3, HEMDF, PT ####[facility] [employer] [id number] [place], [place] CO2 molar conc 23 mmol/L Normal 22-30 [facility] Comment on above: Performed By: #### C MP3, MG3, PHOS3, HEMDF, PT ####[address] [place], [place] Glucose mass conc 144 mg/dL High 70-100 [facility] Comment on above: Performed By: #### C MP3, MG3, PHOS3, HEMDF, PT ####[address] [place], [place] Protein mass conc 6.5 g/dL Normal 6.3-8.2 [facility] Comment on above: Performed By: #### C MP3, MG3, PHOS3, HEMDF, PT ####[address] [place], [place] Urea nitrogen mass conc 12 mg/dL Normal 7-20 [facility] Comment on above: Performed By: #### C MP3, MG3, PHOS3, HEMDF, PT ####[address] [place] Creatinine mass conc 0.77 mg/dL Normal 0.52-1.25 [facility] Comment on above: Performed By: #### C MP3, MG3, PHOS3, HEMDF, PT ####[address] [place], [place] GFR/1.73 sq M predicted among blacks MDRD vol rate/area (S/P/Bld) mL/min/{1.73_m2} Normal >60 [facility] Comment on above: Performed By: #### C MP3, MG3, PHOS3, HEMDF, PT ####[address] [place], [place] GFR/1.73 sq M predicted among non-blacks MDRD vol rate/area (S/P/Bld) mL/min/{1.73_m2} Normal >60 [facility] Comment on above: Result Comment: Sour ce- MDRD equation with creatinine calibration to IDMS(NKDEP) eGFR not recommended for drug dose adjustment Performed By: #### C MP3, MG3, PHOS3, HEMDF, PT ####[address] [place] Potassium molar conc 5.0 mmol/L Normal 3.5-5.1 [facility] Comment on above: Performed By: #### C MP3, MG3, PHOS3, HEMDF, PT ####[address] [place] Albumin mass conc 4.1 g/dL Normal 3.5-5.0 [facility] Comment on above: Performed By: #### C MP3, MG3, PHOS3, HEMDF, PT ####[address] [place] Chloride molar conc 104 mmol/L Normal 98-107 [facility] Comment on above: Performed By: #### C MP3, MG3, PHOS3, HEMDF, PT ####[address] [place] Sodium molar conc 137 mmol/L Normal 137-145 [facility] Comment on above: Performed By: #### C MP3, MG3, PHOS3, HEMDF, PT ####[address] [place], [place] HCG,Urine Qualon 06-04-2018 HCG.beta subunit ( test) Ql (U) Negative Normal Negative [facility] Comment on above: Result Comment: Preg lily is the most common reason for HCG in urine, althoughchoriocarcinoma, hydatidiform mole, and certain nontropho-blastic malignancies also result in detectable urinary HCGlevels. Sensitivity = 20mIU/mL. Performed By: #### H CGUR ####[address] [place], [place] Hemogram w/ Autodiffon 06-04 Abs Baso Cnt 0.0 10*3/uL Normal 0.0-0.2 [facility] Comment on above: Performed By: #### C MP3, MG3, PHOS3, HEMDF, PT ####[address] [place] Abs Neutrophile Cnt 13.3 10*3/uL High 1.8-7.0 [facility] Comment on above: Performed By: #### C MP3, MG3, PHOS3, HEMDF, PT ####[address] [place] Basophils/100 WBC Auto (Bld) 0.2 % Normal 0.0-2.0 [facility] Comment on above: Performed By: #### C MP3, MG3, PHOS3, HEMDF, PT ####[address] [place] Eosinophils Auto #/vol (Bld) 0.0 10*3/uL Normal 0.0-0.5 [facility] Comment on above: Performed By: #### C MP3, MG3, PHOS3, HEMDF, PT ####[address] [place] Eosinophils/100 WBC Auto (Bld) 0.0 % Low 1.0-6.0 [facility] Comment on above: Performed By: #### C MP3, MG3, PHOS3, HEMDF, PT ####[address] Erythrocyte distribution width Auto Ratio (RBC) 14.1 % Normal 11.5-14.5 [facility] Comment on above: Performed By: #### C MP3, MG3, PHOS3, HEMDF, PT ####[address] [place] Granulocytes/100 WBC (Bld) 93.3 % High 40.0-80.0 [facility] Comment on above: Performed By: #### C MP3, MG3, PHOS3, HEMDF, PT ####[address] [place] Hematocrit Auto Volume Fraction (Bld) 37.5 % Normal 35.0-47.0 [facility] Comment on above: Performed By: #### C MP3, MG3, PHOS3, HEMDF, PT ####[address] [place] Hemoglobin mass conc (Bld) 12.4 g/dL Normal 11.7-16.0 [facility] Comment on above: Performed By: #### C MP3, MG3, PHOS3, HEMDF, PT ####[address] [place] Lymphocytes Auto #/vol (Bld) 0.8 10*3/uL Low 1.0-4.3 [facility] Comment on above: Performed By: #### C MP3, MG3, PHOS3, HEMDF, PT ####[address] Lymphocytes/100 WBC Auto (Bld) 5.8 % Low 20.0-40.0 [facility] Comment on above: Performed By: #### C MP3, MG3, PHOS3, HEMDF, PT ####[address] MCH Auto Entitic mass (RBC) 28.5 pg Normal 26.0-34.0 [facility] Comment on above: Performed By: #### C MP3, MG3, PHOS3, HEMDF, PT ####[address] MCHC Auto mass conc (RBC) 33.0 % Normal 32.0-36.0 [facility] Comment on above: Performed By: #### C MP3, MG3, PHOS3, HEMDF, PT ####[address] MCV Auto Entitic volume (RBC) 86.3 fL Normal 79.0-98.0 [facility] Comment on above: Performed By: #### C MP3, MG3, PHOS3, HEMDF, PT ####[address] Monocytes Auto #/vol (Bld) 0.1 10*3/uL Normal 0.0-0.8 [facility] Comment on above: Performed By: #### C MP3, MG3, PHOS3, HEMDF, PT ####[address] Monocytes/100 WBC Auto (Bld) 0.7 % Low 2.0-10.0 [facility] Comment on above: Performed By: #### C MP3, MG3, PHOS3, HEMDF, PT ####[id number] [place], [place] Platelet mean volume Auto Entitic volume (Bld) 8.1 fL Normal 7.4-10.4 [facility] Comment on above: Performed By: #### C MP3, MG3, PHOS3, HEMDF, PT ####[address] [place], [place] Platelets Auto #/vol (Bld) 299 10*3/uL Normal 140-440 [facility] Comment on above: Performed By: #### C MP3, MG3, PHOS3, HEMDF, PT ####[address] [place] RBC Auto #/vol (Bld) 4.34 10*6/uL Normal 3.80-5.20 [facility] Comment on above: Performed By: #### C MP3, MG3, PHOS3, HEMDF, PT ####[address] [place] WBC Auto #/vol (Bld) 14.3 10*3/uL High 3.6-10.7 [facility] Comment on above: Performed By: #### C MP3, MG3, PHOS3, HEMDF, PT ####[address] [place] Magnesiumon 06-04-2018 Magnesium mass conc 2.0 mg/dL Normal 1.6-2.3 [facility] Comment on above: Performed By: #### C MP3, MG3, PHOS3, HEMDF, PT ####[id number] [place], [place] Op Noteon 06-04-2018 Op Note PATIENT: RAMU MARIAICAL RECORD #: [id number] DATE: 06/04/2018SURGERY DATE: 06/04/2018ACCOUNT #: [id number] OF : 1975AGE: 42ADMITTING PHYSICIAN: Alexey Pizarro MDATTENDING PHYSICIAN: MARSHA GillisICTATING PHYSICIAN: Alexey Pizarro MD OPERATIVE RECORDProcedure: C5-C6 ANTERIOR CERVICAL DECOMPRESSION AND ARTIFICIAL DISKPLACEMENT.Preoperative Diagnosis: Cervical radiculopathy.Postoperativ e Diagnosis: Cervical radiculopathy.Anesthesia: General endotracheal.Truck Driver Salesperson: Marilynn Moncada C.N.P.Estimated Blood Loss: Less than 50.Complications: None.Instrument Used: Mobi-C artificial disk placed for the case.Indications: The patient is a 42-year-old female, who presented withneck pain and right arm pain and numbness. MRI showed a herniateddisk right at C5-C6. Risks and benefits of an anterior cervicaldecompression and artificial disk placement were discussed with thepatient. She wished to proceed.Description of Procedure: The patient was brought to the operatingroom. General endotracheal anesthesia was induced. She was lyingsupine on the operative room table. Her head rested on a donut. Herarms were tucked and padded at her side appropriately. Shoulders weregently taped down to allow better visualization of the cervical spinevia C-arm. C-arm was brought into field to approximate the C5-N5ptdny. This was marked with surgical marker. She was prepped anddraped in the normal sterile fashion. After appropriate time-out,identifying the patient, the level of surgery, type of surgery, 0.5%Marcaine with epinephrine was instilled in the future incision. Skinincision was made to the level of platysma. Supraplatysmal dissectionwas carried out. The platysma was opened vertically near the midline.The anterior border of sternocleidomastoid was identified. Thecarotid artery was identified and kept lateral in exposure. When theanterior cervical spine was reached, a spinal needle was placed in thedisk space and a C-arm shot taken to identify, it was the C5-C6 level.This was marked with Bovie and the longus colli muscles were cleanedoff the inferior portion of C5 and superior portion of C6. Retractorswere put in place. The C-arm was brought in AP to correctly identifythe midline and then using the lateral fluoro shot, a [place] pin wasplaced in the midline lateral and parallel to the endplate of C5-C6.[place] pin was placed similarly in C6 vertebral body. Gentledistraction was placed on the pins. Then, the microscope was drapedand brought into field and diskectomy was carried out under themicroscope with pituitary drill, 1 and 2 mm Kerrisons and theup-biting curette. The drilling drill was kept to a minimum.The PLL was reached and resected across the span of the disk space.After the decompression was completed and the PLL opened, anappropriate trial spacer for the artificial disk was used and then theartificial disk was placed under lateral fluoro. When it was in goodposition, we removed from the punchboard inserter and [place] pins used to crosscompress the vertebral bodies on the disk. The wound was copiouslyirrigated out. The vertebral bodies of C5-C6 waxed and then theplatysma was closed with interrupted 3-0 Vicryl sutures followed bysubcuticular interrupted 3-0 Vicryl sutures with Mastisol andSteri-Strips on the skin. Sterile dressing was placed. She wasextubated and taken to the recovery room in stable fashion.Diskriter Job ID: [id number] Pizarro, MDDOD:06/04/2018 09:33 A DEJAH/dskDOT:06/04/2018 10:59 AJob Number: [id number] Number: [id number]: Alexey Pizarro MD [facility] Neurosurgery Spine [address] [facility] [id number] Normal [facility] Phosphoruson 06-04-2018 Phosphate mass conc 3.3 mg/dL Normal 2.5-4.5 [facility] Comment on above: Performed By: #### C MP3, MG3, PHOS3, HEMDF, PT ####[id number] [place] [address] Prothrombin Timeon 8 INR Coag RelTime (PPP) 0.9 Normal 0.9-1.1 [facility] Comment on above: Result Comment: Kian mmended Anticoagulant Therapy: SEE BELOW----- INR of 2.0 - 3.0 : - Prophylaxis of Venous Thrombosis (high-risk surgery) - Treatment of Venous Thrombosis - Treatment of Pulmonary Embolism (Includes tissue heart valves, Acute Myocardial Infarction to prevent systemic embolism, Valvular Heart Disease, and Atrial Fibrillation)----- INR of 2.5 - 3.5 : - Mechanical Prosthetic Valves (high risk) - If oral anticoagulant therapy is used to prevent Myocardial Infarction Performed By: #### C MP3, MG3, PHOS3, HEMDF, PT ####[facility] [id number] [place], [place] Prothrombin time (PT) Coag time (PPP) 9.7 s Normal 9.0-12.0 [facility] Comment on above: Result Comment: . Performed By: #### C MP3, MG3, PHOS3, HEMDF, PT ####[facility] [address] [place], [place] APTTon 05-28-2018 aPTT Coag time (Bld) 25.6 s Normal 20.0-30.5 [facility] Comment on above: Result Comment: NOTE : The therapeutic time for Heparin anticoagulation,based on Xa activity inhibition, is an APTT of 46-80seconds. Performed By: #### H EMOG, APTT, PT, BMP3M ####[facility] [address] [place], [place] Basic Metabolic Panelon - Calcium mass conc 9.6 mg/dL Normal 8.4-10.4 [facility] Comment on above: Performed By: #### H EMOG, APTT, PT, BMP3M ####[facility] [address] [place], [place] Glucose mass conc 81 mg/dL Normal 70-100 [facility] Comment on above: Performed By: #### H EMOG, APTT, PT, BMP3M ####[facility] [address] [place], [place] Anion gap 3 molar conc 11 Normal [facility] Comment on above: Performed By: #### H EMOG, APTT, PT, BMP3M ####[facility] [address] [id number] [place], [place] CO2 molar conc 24 mmol/L Normal 22-30 [facility] Comment on above: Performed By: #### H EMOG, APTT, PT, BMP3M ####[id number] [place], [place] Creatinine mass conc 0.89 mg/dL Normal 0.52-1.25 [facility] Comment on above: Performed By: #### H EMOG, APTT, PT, BMP3M ####[id number] [place], [place] GFR/1.73 sq M predicted among blacks MDRD vol rate/area (S/P/Bld) mL/min/{1.73_m2} Normal >60 [facility] Comment on above: Performed By: #### H EMOG, APTT, PT, BMP3M ####[address] GFR/1.73 sq M predicted among non-blacks MDRD vol rate/area (S/P/Bld) mL/min/{1.73_m2} Normal >60 [facility] Comment on above: Result Comment: Sour ce- MDRD equation with creatinine calibration to IDMS(NKDEP) eGFR not recommended for drug dose adjustment Performed By: #### H EMOG, APTT, PT, BMP3M ####[address] Urea nitrogen mass conc 12 mg/dL Normal 7-20 [facility] Comment on above: Performed By: #### H EMOG, APTT, PT, BMP3M ####[id number] [place], [place] Chloride molar conc 103 mmol/L Normal 98-107 [facility] Comment on above: Performed By: #### H EMOG, APTT, PT, BMP3M ####[address] Potassium molar conc 4.6 mmol/L Normal 3.5-5.1 [facility] Comment on above: Performed By: #### H EMOG, APTT, PT, BMP3M ####[address] Sodium molar conc 138 mmol/L Normal 137-145 [facility] Comment on above: Performed By: #### H EMOG, APTT, PT, BMP3M ####[id number] [place], [place] Hemogramon 05-28-2018 Erythrocyte distribution width Auto Ratio (RBC) 13.8 % Normal 11.5-14.5 [facility] Comment on above: Performed By: #### H EMOG, APTT, PT, BMP3M ####[address] Hematocrit Auto Volume Fraction (Bld) 42.4 % Normal 35.0-47.0 [facility] Comment on above: Performed By: #### H EMOG, APTT, PT, BMP3M ####[address] Hemoglobin mass conc (Bld) 14.2 g/dL Normal 11.7-16.0 [facility] Comment on above: Performed By: #### H EMOG, APTT, PT, BMP3M ####[address] MCH Auto Entitic mass (RBC) 29.0 pg Normal 26.0-34.0 [facility] Comment on above: Performed By: #### H EMOG, APTT, PT, BMP3M ####[address] MCHC Auto mass conc (RBC) 33.4 % Normal 32.0-36.0 [facility] Comment on above: Performed By: #### H EMOG, APTT, PT, BMP3M ####[address] MCV Auto Entitic volume (RBC) 86.8 fL Normal 79.0-98.0 [facility] Comment on above: Performed By: #### H EMOG, APTT, PT, BMP3M ####[address] Platelet mean volume Auto Entitic volume (Bld) 8.9 fL Normal 7.4-10.4 [facility] Comment on above: Performed By: #### H EMOG, APTT, PT, BMP3M ####[id number] [place], [place] Platelets Auto #/vol (Bld) 275 10*3/uL Normal 140-440 [facility] Comment on above: Performed By: #### H EMOG, APTT, PT, BMP3M ####[address] RBC Auto #/vol (Bld) 4.89 10*6/uL Normal 3.80-5.20 [facility] Comment on above: Performed By: #### H EMOG, APTT, PT, BMP3M ####[address] WBC Auto #/vol (Bld) 9.6 10*3/uL Normal 3.6-10.7 [facility] Comment on above: Performed By: #### H EMOG, APTT, PT, BMP3M ####[address] Prothrombin Timeon 201 8 INR Coag RelTime (PPP) 0.9 Normal 0.9-1.1 [facility] Comment on above: Result Comment: Kian mmended Anticoagulant Therapy: SEE BELOW----- INR of 2.0 - 3.0 : - Prophylaxis of Venous Thrombosis (high-risk surgery) - Treatment of Venous Thrombosis - Treatment of Pulmonary Embolism (Includes tissue heart valves, Acute Myocardial Infarction to prevent systemic embolism, Valvular Heart Disease, and Atrial Fibrillation)----- INR of 2.5 - 3.5 : - Mechanical Prosthetic Valves (high risk) - If oral anticoagulant therapy is used to prevent Myocardial Infarction Performed By: #### H EMOG, APTT, PT, BMP3M ####[address] Prothrombin time (PT) Coag time (PPP) 9.5 s Normal 9.0-12.0 [facility] Comment on above: Result Comment: . Performed By: #### H EMOG, APTT, PT, BMP3M ####[facility] [place] [address] Encounters Encounter Date Encounter Type Care Provider Facility Start: 07-26-2024 End: 07-26-2024 ambulatory [facility] Facility:[facility] Start: 07-07-2024 End[facility] Start: 07-22-2023 End: 07-22-2023 ambulatory [facility] Work Phone: Start: 07-22-2023 End: 07-22-2023 Patient encounter procedure [facility] Start: 07-07-2023 End: 07-07-2023 ambulatory [facility] Work Phone: Start: 07-07-2023 End: 07-07-2023 Patient encounter procedure [facility] Work Phone: Start: 07-02-2023 End: 07-02-2023 ambulatory [facility] Work Phone: Start: 07-02-2023 End: 07-02-2023 Patient encounter procedure [facility] Work Phone: Start: 03-26-2023 Registered [facility] Work Phone: Start: 07-01-2022 End: 07-01-2022 ambulatory [facility] Work Phone: Start: 07-01-2022 End: 07-01-2022 Patient encounter procedure [facility] Start: 11-06-2021 End: 11-06-2021 Patient encounter procedure [facility] Start: 06-04-2018 Patient encounter procedure Alexey Mueller [facility] Start: 05-28-2018 Encounter for other preprocedural examination Alexey Pizarro [facility] Start: 05-28-2018 Patient encounter procedure Alexey [facility] Encounter for other preprocedural examination Alexey Pattersonbright [facility] Procedures Date Procedure Procedure Detail Performing Clinician Start: 07-07-2023 Ultrasonography of breast Start: 07-02-2023 Screening mammography Start: 07-01-2022 Screening mammography Immunizations Immunization Date Immunization Notes Care Provider Mirtha crews 05-04-2018 Influenza virus vaccine [facility] 08-21-2016 tetanus and diphther ia toxoids, adsorbed, preservative free, for adult use (2 Lf of tetanus toxoid and 2 Lf of diphtheria toxoid) [facility] Payers Date Payer Category Payer Self-pay [id number] 2021 Unknown [id number] 1975 Unknown [id number] [id number] 1975 Unknown [id number] [id number] [id number] Unknown Unknown [id number] 51 [id number] Unknown ANTHEM [id number] 37 [id number] Unknown [id number] [id number] [id number] Unknown [id number] [id number] [id number] Social History Date Type Detail Facility Start: 07-03-2019 End: 07-03-2019 Tobacco smoking status NHIS Unknown if ever smoked [facility] Start: 10-29-2018 Non-smoker [facility] Start: 1975 Sex Assigned At Female [facility] Start: 02-21-2018 None [facility] Start: 02-21-2018 Spouse/ Signif icant Other [facility] Medical Equipment Procedure Code Equipment Code Equipment Origin al Text Equipment Identifier Dates Laparoscopy with vaginal hysterectomy PJ 3GRM HEMOSTAT ABS FDA Start: 10-28-2018 Laparoscopy with vaginal hysterectomy PJ 3GRM HEMOSTAT ABS FDA Start: 10-28-2018 Laparoscopy with vaginal hysterectomy PJ 3GRM HEMOSTAT ABS FDA Start: 10-28-2018 Laparoscopy with vaginal hysterectomy PJ 3GRM HEMOSTAT ABS FDA Start: 10-28-2018 Laparoscopy with vaginal hysterectomy PJ 3GRM HEMOSTAT ABS FDA Start: 10-28-2018 Laparoscopy with vaginal hysterectomy PJ 3GRM HEMOSTAT ABS FDA Start: 10-28-2018 Evaluation note Note Date & Type Note Facility Evaluation note No assessment information availa [facility] Work Phone: Summary Purpose Family History No Family History Records Found Relationship Condition Age at Onset Recorded Date/T blu father Malignant neoplasm Unknown Advance Directives No Advanced Directives Records Found Advance Directive Response Recorded Date/ Time Advance Directives No August 21, 2016 4:44pm Living Will No July 03, 2 019 7:53am Power of Avian Keeper No July 03, 2019 7:53am Advance Directive Response Recorded Date/ Time Advance Directives No August 21, 2016 3:44pm Living Will No July 03, 2 019 6:53am Power of Avian Keeper No July 03, 2019 6:53am Chief Complaint and Reason for Visit Chief Complaint SCREENING Chief Complaint SCIATICIA LFT / RX H ERE SCREENING ABNORMAL MAMMO Chief Complaint SCREENING ABNORMAL MAMMO Additional Source Comments INFORMATION SOURCE (unrecogn ized section and content) DATE CREATED AUTHOR 07/11/2018 [facility] [employer] DATE CREATED AUTHOR AUTHOR'S ORGANIZ ATION 08/22/2024 [facility] Goals (unrecognized section and content) Goals may be documented in a n alternate sectionGoals may be documented in an alternate sectionGoals may be documented in an alternate sectionGoals may be documented in an alternate sectionGoals may be documented in an alternate sectionGoals may be documented in an alternate section Care Teams (unrecognized sec tion and content) Team Status: Active Member Role Status Dates Dr. Rachel Jacinto MD Family Provider Active Dr. Rachel Jacinto MD Primary Care Provider Active Team Status: Active Member Role Status Dates Dr. Rachel Jacinto MD Primary Care Prov ider, Attending Provider, Referring Provider Active Team Status: Inactive Member Role Status Dates Dr. Rachel Jacinto MD Primary Care Prov ider, Attending Provider, Referring Provider Active Team Status: Inactive Member Role Status Dates Dr. Rachel Jacinto MD Primary Care Provider, Darcy rowell Provider Active FOR RECORDS PERTAINING TO PATIENTS WHO ARE OR HAVE BEEN ENROLLED IN A CHEMICAL DEPENDENCY/SUBSTANCEABUSE PROGRAM, SOME INFORMATION MAY BE OMITTED. This clinical summary was aggregated from multiple sources. Caution should be exercised in using it in the provision of clinical care. This summary normalizes information from multiple sources, and as a consequence, information in this document may materially change the coding, format and clinical context of patient data. In addition, data may be omitted in some cases. CLINICAL DECISIONS SHOULD BE BASED ON THE PRIMARY CLINICAL RECORDS. [employer] [facility]. provides no warranty or guarantee of the accuracy or completeness of information in this document.
== END 2025-01-26 23:59 | disposition home or self-care (01) ==
LOC: MFPLAB 09:18
PROVIDERS: PCP Family Medicine; Referring Provider Family Medicine; Visit Provider Family Medicine
DX: I10 Essential (primary) hypertension (principal); E78.5 Hyperlipidemia, unspecified; E56.9 Vitamin deficiency, unspecified
CPT/HCPCS: 36415; 80053; 80061; 82306; 85025